=== PATIENT | male | born 1950 | race Caucasian/White ===

== ENCOUNTER → 2016-09-08 | Outpatient (CLI) | payer BC ==
[~2016-09-08] MED LIST: ASCO500T16 PO; ASPCH81X PO; B-CO-25 PO; COEN100C11 PO; CYAN100028 PO; FLUC200T4 PO; GABA-113 PO; HYDROCORTISONE PO; KRIL1000 PO; LYSI500T34 PO; MAGN1CAP2 PO; MELA1TAB3 PO; MULT-188 PO; NUTR30CA PO; PRAS1CAP2 PO; SELENIUM PO; VALA1TAB31 PO; VITAMIN D3 PO; ZINC PO; [UNRECOGNIZED DRUG - CODE] PO; [UNRECOGNIZED DRUG - CODE] PO; [UNRECOGNIZED DRUG - OTHER] PO; [UNRECOGNIZED DRUG - OTHER] PO; [UNRECOGNIZED DRUG - OTHER] PO
[2016-09-08 10:38] LABS: CHOLESTEROL/HDL RATIO 4.3; FERRITIN 47.6 ng/ml (8.0-388.0)
--- NOTE | 2016-09-09 14:12 | CODING QUERY NO DIAGNOSIS ---
TREATMENT RENDERED WITHOUT A DIAGNOSIS 52 To promote full compliance with coding requirements relating to patient care, physician participation is requested in all cases of medical records coder uncertainty. Please assist us with providing a diagnosis/symptom for the test(s) below: A diagnosis/symptom was not documented on your Order. A valid diagnosis/symptom is required to bill all insurances. Please remember that we are unable to code a diagnosis of rule out, probable, possible, questionable, or suspected. DOS 09/08/16 Tests that require a diagnosis: * ACTH DIAGNOSIS: * C-REACT PROT DIAGNOSIS: * DHEA SULFATE DIAGNOSIS: * FOLIC ACID DIAGNOSIS: * MAGNESIUM DIAGNOSIS: * VITAMIN B12 DIAGNOSIS: * T3 FREE DIAGNOSIS: * VITAMIN D, 25-HYDROXY DIAGNOSIS: *LIPID PROFILE FASTING DIAGNOSIS: *FERRITIN DIAGNOSIS: Provider Signature: Date: Thank you Carmela [facility] Information Management Once completed, please kindly fax back to [phone] For questions please call [phone]
[2016-09-13 14:14] LABS: C-REACTIVE PROT HIGHSEN 1.2 MG/L; PREGNENELONE **TC 31493X 25 ng/dL; T3 REVERSE **TC 90963 7 ng/dL (8-25); TESTOSTERONE,TOTAL 546 ng/dL (250-1100)
--- NOTE | 2016-10-18 09:26 | CODING QUERY MEDICAL NECESSITY ---
SUPPORTING DIAGNOSIS NEEDED A supporting diagnosis is required for the test/procedure performed on this patient in order for us to be reimbursed by the patient's insurance. Please provide a supporting diagnosis for the following test/procedure listed below next to the test name along with your signature. *If there is no additional diagnosis for this patient that would support the following test/procedure please document that below next to the test/procedure. Test(s)/Procedure(s) that require a supporting diagnosis: * VITAMIN D 25-HYDROXY DIAGNOSIS: * VITAMIN B-12 LEVEL DIAGNOSIS: * C-REACTIVE PROTEIN DIAGNOSIS; * DOS: 09/08/16 Provider Signature: Date: Thank you Juliana Rodriguez Health Information Management Once completed, please kindly fax back to [phone] For questions please call [phone]
== END | disposition home or self-care (01) ==
LOC: C.LAB 08:38
DX: E10.9 Type 1 diabetes mellitus without complications (principal); E24.3 Ectopic ACTH syndrome; R79.82 Elevated C-reactive protein (CRP); E27.9 Disorder of adrenal gland, unspecified; D52.9 Folate deficiency anemia, unspecified; E87.4 Mixed disorder of acid-base balance; D64.9 Anemia, unspecified; E03.9 Hypothyroidism, unspecified; E55.9 Vitamin D deficiency, unspecified; M79.7 Fibromyalgia; E78.5 Hyperlipidemia, unspecified

== ENCOUNTER → 2016-11-29 | Day surgery (SDC) | payer BC ==
[2016-11-12 13:52] VITALS: Ht 188 cm; Wt 90.5 kg
[~2016-11-29] VITALS: Ht 188 cm; Wt 90.5 kg
[~2016-11-29] MED LIST changes: +500ML BSS 0.3ML EPI 1:1000PF IRRIG ONE; +ACETAMINOPHEN 325 MG TAB ONE; +ACETAMINOPHEN 325 MG TAB PO PRN; +AMVISC PLUS 0.8ML SYRINGE INT OCU ONE; +ATROPINE SULFATE 0.1 MG/ML 5ML SYR IV PRN; +BRIMONIDINE TART 0.2% OP SOLN PER DROP CHARGE ONE; +BSS FLUSH ONE; +ENDOCOAT 0.85ML SYRINGE INT OCU ONE; +EpHEDrine SULFATE INJ 50 MG/ML AMP IV PRN; +EpINEphrine INJ 1MG/ML AMP 1 MG/ML AMP ONE; +FENTANYL CITRATE INJ 50 MCG/1 ML 2 ML VIAL IV PRN; -GABA-113 PO; +LACTATED RINGER'S 1000ML 500 ML IV SCH; +LIDOCAINE 4% OP SOLN DROP CHARGE ONE; +LIDOCAINE 4% OP SOLN DROP CHARGE OPL SCH; +LIDOCAINE HCL 1% MPF 2 ML VIAL ONE; +MIDAZOLAM HCL 1 MG/ML 2ML VIAL ONE; +MOXIFLOXACIN OPH SOLN PER DROP CHARGE ONE; +ONDANSETRON INJ 2 MG/ML 2 ML VIAL IV PRN; +POVIDONE-IODINE OP SOLN 30 ML BTL ONE; +PROPARACAINE 0.5% OP SOLN PER DROP CHARGE OPL SCH; +TOBRAMYCIN/DEXAMETHASONE OPH OINT PER APPLN CHARGE ONE
--- NOTE | 2016-11-29 09:05 | History & Physical Bridge - SC ---
H&P Re-Evaluation Bridge Note: I have examined the patient, reviewed the History & Physical and in the interval since the performance of the History & Physical I have noted the following changes of clinical significance: No changes noted
[2016-11-29] MEDS: PHENYLEPHRINE HCL 2.5% OP SOLN PER DROP CHARGE OPL SCH ×2 (09:08→09:13)
[2016-11-29] MEDS: TROPICAMIDE 1% OP SOLN PER DROP CHARGE OPL SCH ×2 (09:09→09:14)
[2016-11-29] MEDS: CYCLOPENTOLATE HCL 1% OP SOLN PER DROP CHARGE OPL SCH ×2 (09:10→09:15)
[2016-11-29] MEDS: KETOROLAC 0.5% OP SOLN PER DROP CHARGE OPL SCH ×2 (09:11→09:16)
[2016-11-29] MEDS: MOXIFLOXACIN OPH SOLN PER DROP CHARGE OPL SCH ×2 (09:12→09:22)
[2016-11-29 10:22] VITALS: TEMP 36.4
--- NOTE | 2016-11-29 10:22 | Discharge Instructions-SurgCtr ---
Discharge Instructions Date of Service Nov 29, 2016. Visit Reason for Visit: Cataract Left Eye Discharge Discharge Diagnosis / Problem: cataract left eye Discharge Goals Goal(s): Improve function Activity Recommendations Activity Limitations: per Instructions/Follow-up section Lifting Limitations: no more than 5 pounds Anesthesia . Post Anesthesia Instructions: If you have had General Anesthesia or IV Sedation: * Do not drive today. * Resume driving when surgeon permits. * Do not make important decisions or sign legal documents today. * Call surgeon for: 1. Temperature elevations greater than 101 degrees F. 2. Uncontrollable pain. 3. Excessive bleeding. 4. Persistent nausea and vomiting. 5. Medication intolerance (nausea, vomiting or rash). * For nausea and vomiting use only clear liquids such as: tea, soda, bouillon until nausea subsides, then gradually increase diet as tolerated. * If you have any concerns or questions, call your surgeon's office. If physician is unavailable and it is an emergency, call 911 or go to the nearest emergency room. . Instructions / Follow-Up Instructions / Follow-Up ACTIVITY RECOMMENDATIONS: * Light activities * You may walk outside, read, watch television. * Mild irritation and blurred vision are common for the first few days, redness around the white part of the eye is common. MEDICATIONS: Resume previous medications unless instructed otherwise by your surgeon. Eye drops (today and tomorrow): Cipro - one drop in operative eye every 2 hours while awake Prednisolone 1% - one drop in operative eye every 2 hours while awake Ilevro - one drop operative eye 1 times daily SPECIAL CARE INSTRUCTIONS: * If any problems or concerns, please call Dr. Reyes's office at . * Keep plastic shield taped over eye to sleep at night. * Keep plastic shield taped over eye except to administer eye drops. * Keep plastic shield on until office visit the following day. FOLLOW UP VISIT: Follow-up with Dr. Reyes in the [place] office as scheduled. If not already scheduled, please call the office at . Diet Recommendations Home Diet: resume previous diet Procedures Procedures Performed: Left Cataract Phacoemulsification With Intraocular Lens Implant Pending Studies Studies pending at discharge: no Medical Emergencies . Who to Call and When: Medical Emergencies: If at any time you feel your situation is an emergency, please call 911 immediately. . Non-Emergent Contact Non-Emergency issues call your: [facility] . . "Provider Documentation" section prepared by Reggie Reyes. .
--- NOTE | 2016-11-29 10:22 | [facility] Post Operative Brief Note ---
Immediate Operative Summary Operative Date Nov 29, 2016. Pre-Operative Diagnosis Cataract Left Eye Post-Operative Diagnosis Same Procedure(s) Performed Left Cataract Phacoemulsification With Intraocular Lens Implant Surgeon Dr. Reyes Correctional Supervisor Surgeon(s) None Estimated Blood Loss 0 Findings cataract left eye Specimens None Complication(s) None Disposition Recovery Room / PACU
--- NOTE | 2016-11-29 10:30 | OPERATIVE REPORT ---
DATE OF OPERATION: 11/29/2016 PREOPERATIVE DIAGNOSIS: Cataract, left eye. POSTOPERATIVE DIAGNOSIS: Cataract, left eye. PROCEDURE: Phacoemulsification cataract extraction with intraocular lens placement, left eye. SURGEON: Dr. Reyes. COMPLICATIONS: None. ESTIMATED BLOOD LOSS: None. ANESTHESIA: Topical with sedation. OPERATION AND FINDINGS: After informed consent was obtained in the holding area the patient was wheeled back to the Operating Room where cardiac monitoring leads and oxygen by nasal cannula was administered by Anesthesia. Gentle IV sedation was given, and the patient's left eye was prepped and draped in usual sterile fashion. A wire lid speculum was placed into the left eye and the operating microscope was swung into position. Using 0.12 forceps and a Supersharp blade a paracentesis port was made 3 o'clock hours away from the 3 o'clock position of patient's left eye. 1% non-preserved Lidocaine was then injected into the anterior chamber for anesthesia. A 2.2 mm keratotome blade was then used to make a shelved clear corneal incision at the 3 o'clock position of his left eye. Amvisc was injected into the anterior chamber and a cystotome and Utrata forceps were used to perform a curvilinear capsulorrhexis. BSS on a hydrodissection cannula was used to hydrodissect the lens nucleus away from the capsular bag. The phacoemulsification handpiece was then used in a stop and chop fashion to remove the lens nucleus. The irrigation and aspiration handpiece was then used to remove the residual cortical material. Amvisc was injected into the capsular bag and anterior chamber and a Bausch \T\ Lomb MX60, 21.0 Diopter intraocular lens was injected into the capsular bag. Irrigation and aspiration handpiece was used to remove the residual viscoelastic material. The wounds were hydrated and noted to be watertight. The wire lid speculum was removed from the eye. Vigamox, Brimonidine, and TobraDex ointment were placed on the eye and it was shielded. It should be noted that EndoCoat was used during the case to protect the cornea endothelium. DISPOSITION: The patient tolerated the procedure well and was wheeled to the post anesthesia care unit in stable condition. I attest to the content of the Intraoperative Record and any orders documented therein. Any exceptions are noted below. I attest to the content of the Intraoperative Record and any orders documented therein. Any exceptio ns are noted below.
--- NOTE | 2016-11-29 10:31 | Anesthesia Progress Nt - [facility] ---
Anesthesia Post Op Note Date & Time Nov 29, 2016 at 10:30 Vital Signs Pain Intensity: 0 Vital Signs Past 12 Hours Date Time Temp Pulse Resp B/P Pulse Ox O2 Delivery O2 Flow Rate FiO2 11/29/16 09:04 36.8 66 16 132/88 95 Room Air Notes Mental Status: alert / awake / arousable, participated in evaluation Pt Amnestic to Procedure: Yes Nausea / Vomiting: adequately controlled Pain: adequately controlled Airway Patency, RR, SpO2: stable & adequate BP & HR: stable & adequate Hydration State: stable & adequate Anesthetic Complications: no major complications apparent
[2016-11-29 10:45] VITALS: BP 131/85; PULSE 56; O2SAT 96
== END | disposition home or self-care (01) ==
LOC: X.SURG 08:53
PROVIDERS: ATTEND Ophthalmology
DX: H26.9 Unspecified cataract (principal); J45.909 Unspecified asthma, uncomplicated; Z98.41 Cataract extraction status, right eye; Z86.711 Personal history of pulmonary embolism; G47.33 Obstructive sleep apnea (adult) (pediatric); Z98.890 Other specified postprocedural states; Z68.26 Body mass index [BMI] 26.0-26.9, adult

== ENCOUNTER → 2016-12-27 | Outpatient (CLI) | payer BC ==
[~2016-12-27] MED LIST changes: -500ML BSS 0.3ML EPI 1:1000PF IRRIG ONE; -ACETAMINOPHEN 325 MG TAB ONE; -ACETAMINOPHEN 325 MG TAB PO PRN; -AMVISC PLUS 0.8ML SYRINGE INT OCU ONE; -ATROPINE SULFATE 0.1 MG/ML 5ML SYR IV PRN; -BRIMONIDINE TART 0.2% OP SOLN PER DROP CHARGE ONE; -BSS FLUSH ONE; -ENDOCOAT 0.85ML SYRINGE INT OCU ONE; -EpHEDrine SULFATE INJ 50 MG/ML AMP IV PRN; -EpINEphrine INJ 1MG/ML AMP 1 MG/ML AMP ONE; -FENTANYL CITRATE INJ 50 MCG/1 ML 2 ML VIAL IV PRN; -LACTATED RINGER'S 1000ML 500 ML IV SCH; -LIDOCAINE 4% OP SOLN DROP CHARGE ONE; -LIDOCAINE 4% OP SOLN DROP CHARGE OPL SCH; -LIDOCAINE HCL 1% MPF 2 ML VIAL ONE; -MIDAZOLAM HCL 1 MG/ML 2ML VIAL ONE; -MOXIFLOXACIN OPH SOLN PER DROP CHARGE ONE; -ONDANSETRON INJ 2 MG/ML 2 ML VIAL IV PRN; -POVIDONE-IODINE OP SOLN 30 ML BTL ONE; -PROPARACAINE 0.5% OP SOLN PER DROP CHARGE OPL SCH; -TOBRAMYCIN/DEXAMETHASONE OPH OINT PER APPLN CHARGE ONE
[2016-12-27 14:58] LABS: BASO % 0.5 %; BASO ABS # 0.03 K/uL (0-0.2); COMPLETE YES; HEMATOCRIT 46.5 % (42-52); IG% 0.5 %; LYMPH % 31.6 %; LYMPH ABS # 1.74 K/uL (1.2-3.4); MEAN CELL VOLUME 94.5 fL (80-100); MEAN CORPUSCULAR HEMOGLOBIN 32.3 pg (25-34); MEAN CORPUSCULAR HGB CONC 34.2 g/dl (32-36); MEAN PLATELET VOLUME 9.7 fL (7.4-10.4); MONO % 11.6 %; NEUT % 53.8 %; PLATELET COUNT 239 K/uL (130-400); RED BLOOD COUNT 4.92 M/uL (4.7-6.1)
--- NOTE | 2016-12-31 11:02 | CODING QUERY MEDICAL NECESSITY ---
SUPPORTING DIAGNOSIS NEEDED Dr. Chaparro, A supporting diagnosis is required for the test/procedure performed on this patient in order for us to be reimbursed by the patient's insurance. Please provide a supporting diagnosis for the following test/procedure listed below next to the test name along with your signature. *If there is no additional diagnosis for this patient that would support the following test/procedure please document that below next to the test/procedure. Test(s)/Procedure(s) that require a supporting diagnosis: * ([id number]) VITAMIN D ASSAY DIAGNOSIS: * ([id number]) VITAMIN D, 1, 25-DIHYDROXY DIAGNOSIS: *([id number]) C-REACTIVE PROTEIN DIAGNOSIS: DATE OF SERVICE: 12/27/16 Provider Signature: Date: Thank you Ramsey [facility] Health Information Management Once completed, please kindly fax back to [phone] For questions please call [phone]
[2017-01-03 02:19] LABS: C-REACTIVE PROT HIGHSEN 1.6 MG/L; CANDIDA AB IgA 1.6; CANDIDA AB IgG 1.2; CANDIDA AB IgM 0.3; INSULIN LIKE GROWTH FACTOR-I 296 ng/mL (41-279); PREGNENELONE **TC 31493X 11 ng/dL (22-237); T3 REVERSE **TC 90963 9 ng/dL (8-25); TESTOSTERONE,TOTAL 686 ng/dL (250-1100)
== END | disposition home or self-care (01) ==
LOC: C.LAB 14:11
DX: E27.49 Other adrenocortical insufficiency (principal); R53.82 Chronic fatigue, unspecified; D83.9 Common variable immunodeficiency, unspecified; E07.89 Other specified disorders of thyroid; E29.1 Testicular hypofunction; G47.00 Insomnia, unspecified; B97.89 Other viral agents as the cause of diseases classified elsewhere

== ENCOUNTER → 2017-01-13 | Day surgery (SDC) | payer BC ==
[2017-01-05 15:24] VITALS: Ht 188 cm; Wt 90.5 kg
[~2017-01-13] VITALS: Ht 188 cm; Wt 90.5 kg
[~2017-01-13] MED LIST changes: +IOPAMIDOL INJ 61% 15 ML VIAL ONE; +LIDOCAINE HCL 1% MPF 5 ML VIAL ONE; +SODIUM CHLORIDE 0.9% INJ 10 ML VIAL ONE
--- NOTE | 2017-01-13 14:44 | Discharge Instructions ---
Discharge Instructions Date of Service Jan 13, 2017. Visit Reason for Visit: Lumbar Radiculopathy Discharge Discharge Diagnosis / Problem: left leg pain Discharge Goals Goal(s): Decrease discomfort, Improve function Activity Recommendations Activity Limitations: resume your previous activity Anesthesia . Post Anesthesia Instructions: If you have had General Anesthesia or IV Sedation: * Do not drive today. * Resume driving when surgeon permits. * Do not make important decisions or sign legal documents today. * Call surgeon for: 1. Temperature elevations greater than 101 degrees F. 2. Uncontrollable pain. 3. Excessive bleeding. 4. Persistent nausea and vomiting. 5. Medication intolerance (nausea, vomiting or rash). * For nausea and vomiting use only clear liquids such as: tea, soda, bouillon until nausea subsides, then gradually increase diet as tolerated. * If you have any concerns or questions, call your surgeon's office. If physician is unavailable and it is an emergency, call 911 or go to the nearest emergency room. . Diet Recommendations Recommended Home Diet: resume previous diet Procedures Procedures Performed: Caudal Epidural Steroid Injection Pending Studies Studies pending at discharge: no Medical Emergencies . Who to Call and When: Medical Emergencies: If at any time you feel your situation is an emergency, please call 911 immediately. . Non-Emergent Contact Non-Emergency issues call your: Specialist . . "Provider Documentation" section prepared by Leonel Williamson. .
[2017-01-13 14:52] VITALS: BP 125/73; PULSE 74; TEMP 36.7; O2SAT 95
--- NOTE | 2017-01-13 15:07 | OPERATIVE REPORT ---
DATE OF OPERATION: 01/13/2017 PREOPERATIVE DIAGNOSIS: History of a herniated lumbar disk, L5-S1 with a left lower extremity radiculopathy. POSTOPERATIVE DIAGNOSIS: Same. PROCEDURE: Caudal epidural steroid injection under fluoroscopic guidance. INDICATIONS: The patient is a 66-year-old white male with a 10+ year history of chronic low back pain. He has had 2 epidural injections in the distant past, which had provided him with good relief for a number of years; however, the pain has been returning and is problematic to him. He describes a classic S1 dermatomal distribution pain down the left leg. He presents today for an epidural injection. He will be given a caudal approach as he had taken an aspirin this morning. PHYSICAL EXAMINATION: GENERAL: Pleasant male seated comfortably. MUSCULOSKELETAL: Lumbar paraspinal muscles were palpated and noted be nontender. He has normal lower extremity strength. SENSATION: Decreased sensation in the left lower extremity L5 dermatomal distribution. CONSENT: Verbal and written consent was obtained from the patient. Risks and benefits were reviewed. Risks include, but are not limited to epidural abscess, epidural hematoma, allergic reaction, and dural puncture. The patient wishes to proceed. DESCRIPTION OF PROCEDURE: The patient was taken back to the special procedures room of the [facility], where he was maintained in a prone position. Backside was cleansed with Betadine x3 and a dry sterile dressing was applied. Fluoroscope was used to identify the sacral hiatus and overlying skin was anesthetized at the sacral hiatus with 4 mL of lidocaine 1% with a 25-gauge 1-1/2 inch needle. A 25-gauge 3-1/2 inch spinal needle was then directed through the sacral hiatus down into the canal under lateral fluoroscopic guidance. He then underwent injection after negative aspiration of 40 mg of Depo-Medrol and 4 mL of preservative free sodium chloride. Injection was well tolerated. DISPOSITION: 1. The patient was taken out into the discharge recovery area, where he will be discharged home once discharge criteria have been met. 2. Follow up in the [facility] office in 2-4 weeks. I attest to the content of the Intraoperative Record and any orders documented therein. Any exception s are noted below.
== END | disposition home or self-care (01) ==
LOC: X.SURG 13:26
PROVIDERS: ATTEND Physical Medicine & Rehabilitation
DX: M51.17 Intervertebral disc disorders with radiculopathy, lumbosacral region (principal)

== ENCOUNTER → 2017-05-17 | Outpatient (CLI) | payer BC ==
[~2017-05-17] MED LIST changes: -IOPAMIDOL INJ 61% 15 ML VIAL ONE; -LIDOCAINE HCL 1% MPF 5 ML VIAL ONE; -SODIUM CHLORIDE 0.9% INJ 10 ML VIAL ONE
== END | disposition home or self-care (01) ==
LOC: C.LAB 13:47
DX: E27.49 Other adrenocortical insufficiency (principal); E23.0 Hypopituitarism; E03.9 Hypothyroidism, unspecified; R53.82 Chronic fatigue, unspecified; D84.9 Immunodeficiency, unspecified; G47.20 Circadian rhythm sleep disorder, unspecified type; D83.9 Common variable immunodeficiency, unspecified; A69.20 Lyme disease, unspecified; B97.89 Other viral agents as the cause of diseases classified elsewhere

== ENCOUNTER → 2017-05-26 | Day surgery (SDC) | payer BC ==
[2017-05-06 14:14] VITALS: Ht 188 cm; Wt 90.5 kg
[~2017-05-26] VITALS: Ht 188 cm; Wt 90.5 kg
[~2017-05-26] MED LIST changes: +IOPAMIDOL INJ 61% 15 ML VIAL ONE; +LIDOCAINE HCL 1% MPF 5 ML VIAL ONE; +SODIUM CHLORIDE 0.9% INJ 10 ML VIAL ONE
[2017-05-26 14:04] VITALS: TEMP 37.1
--- NOTE | 2017-05-26 14:04 | Discharge Instructions ---
Discharge Instructions Date of Service May 26, 2017. Visit Reason for Visit: Lumbar Radiculopathy Discharge Discharge Diagnosis / Problem: leg pain Discharge Goals Goal(s): Decrease discomfort, Improve function Medications Stopped Medications Name(s): ASA, ADVIL LAST DOSE 1 WEEK AGO Activity Recommendations Activity Limitations: resume your previous activity Anesthesia . Post Anesthesia Instructions: If you have had General Anesthesia or IV Sedation: * Do not drive today. * Resume driving when surgeon permits. * Do not make important decisions or sign legal documents today. * Call surgeon for: 1. Temperature elevations greater than 101 degrees F. 2. Uncontrollable pain. 3. Excessive bleeding. 4. Persistent nausea and vomiting. 5. Medication intolerance (nausea, vomiting or rash). * For nausea and vomiting use only clear liquids such as: tea, soda, bouillon until nausea subsides, then gradually increase diet as tolerated. * If you have any concerns or questions, call your surgeon's office. If physician is unavailable and it is an emergency, call 911 or go to the nearest emergency room. . Diet Recommendations Recommended Home Diet: resume previous diet Procedures Procedures Performed: LUMBAR EPIDURAL STEROID INJECTION Pending Studies Studies pending at discharge: no Medical Emergencies . Who to Call and When: Medical Emergencies: If at any time you feel your situation is an emergency, please call 911 immediately. . Non-Emergent Contact Non-Emergency issues call your: Specialist . . "Provider Documentation" section prepared by Leonel Williamson. .
[2017-05-26 14:12] VITALS: BP 135/78; PULSE 58; O2SAT 96
--- NOTE | 2017-05-26 14:23 | OPERATIVE REPORT ---
DATE OF OPERATION: 05/26/2017 PREOPERATIVE DIAGNOSIS: L5-S1 disc herniation with bilateral lower extremity radiculopathy. POSTOPERATIVE DIAGNOSIS: Same. PROCEDURE: Right paramedian L5-S1 intralaminar epidural steroid injection under fluoroscopic guidance. SURGEON: Dr. Leonel Williamson. INDICATIONS: The patient is a 66-year-old white male who has received epidural injections with good relief of radicular pain. When he was he was evaluated in early May, his pain was predominantly down the left leg. More recently he is reporting it is bothering him down both legs and a little bit more intense now in the right leg. It is following the classic S1 dermatomal distribution with pain into the hamstring area bilaterally. PHYSICAL EXAMINATION: Pleasant male seated comfortably in no apparent distress. He has normal lower extremity strength. Positive seated straight leg raise of his right lower extremity, slight decreased L5 dermatomal sensation on the left side. No focal weakness. CONSENT: Verbal and written consent was obtained from the patient. Risks and benefits were reviewed. Risks include but are not limited to epidural abscess, epidural hematoma, allergic reaction, dural puncture. The patient wishes to proceed. PROCEDURE: The patient was taken back to the special procedures room of the [facility] where he was maintained in a prone position. Backside was cleansed with Betadine x3 and a dry sterile dressing was applied. Fluoroscope was used to identify the L5-S1 intralaminar space. Overlying skin on the right side was anesthetized with 4 mL of lidocaine 1% with a 25 gauge 1.5-inch needle. A 22-gauge 3.5 inch spinal needle was then directed under fluoroscopic guidance into the epidural space and advanced under lateral fluoroscopic guidance to a depth of 6.5 cm where there was a loss of resistance. Isovue-300 contrast 1 mL was injected in which demonstrated epidural uptake pattern. He then underwent injection after negative aspiration of 40 mg of Depo-Medrol and 4 mL of preservative free sodium chloride. Injection was well tolerated. DISPOSITION: 1. The patient is taken out into the discharge recovery area where he will be discharged home once discharge criteria have been met. 2. Follow up in the [facility] office in 2-4 weeks. I attest to the content of the Intraoperative Record and any orders documented therein. Any exception s are noted below.
== END | disposition home or self-care (01) ==
LOC: X.SURG 12:55
PROVIDERS: ATTEND Physical Medicine & Rehabilitation
DX: M51.17 Intervertebral disc disorders with radiculopathy, lumbosacral region (principal); Z98.41 Cataract extraction status, right eye; Z98.42 Cataract extraction status, left eye; Z98.818 Other dental procedure status; Z90.89 Acquired absence of other organs; E03.9 Hypothyroidism, unspecified; Z84.1 Family history of disorders of kidney and ureter; Z82.49 Family history of ischemic heart disease and other diseases of the circulatory system; Z79.899 Other long term (current) drug therapy

== ENCOUNTER → 2017-10-31 | Outpatient (CLI) | payer BC ==
[~2017-10-31] MED LIST changes: -IOPAMIDOL INJ 61% 15 ML VIAL ONE; -LIDOCAINE HCL 1% MPF 5 ML VIAL ONE; -SODIUM CHLORIDE 0.9% INJ 10 ML VIAL ONE
[2017-10-31 13:02] LABS: BASO % 0.6 %; BASO ABS # 0.03 K/uL (0-0.2); HEMATOCRIT 45.5 % (42-52); HEMOGLOBIN 15.5 g/dL (14.0-18.0); IG# 0.01 K/uL (0.00-0.02); LYMPH % 33.4 %; LYMPH ABS # 1.71 K/uL (1.2-3.4); MEAN CORPUSCULAR HEMOGLOBIN 32.7 pg (25-34); MEAN CORPUSCULAR HGB CONC 34.1 g/dl (32-36); MEAN PLATELET VOLUME 9.4 fL (7.4-10.4); MONO % 10.2 %; MONO ABS # 0.52 K/uL (0.11-0.59); NEUT % 53.6 %; NEUT ABS # 2.75 K/uL (1.4-6.5); PLATELET COUNT 349 K/uL (130-400); RED CELL DISTRIBUTION WIDTH CV 13.8 % (11.5-14.5); RED CELL DISTRIBUTION WIDTH SD 48.8 fL (36.4-46.3); WHITE BLOOD COUNT 5.12 K/uL (4.8-10.8)
[2017-10-31 13:32] LABS: ALBUMIN 3.6 gm/dl (3.4-5.0); TOTAL PROTEIN 7.5 gm/dl (6.4-8.2)
[2017-10-31 13:47] LABS: T3 FREE 3.12 pg/ml (2.30-4.20)
[2017-10-31 14:21] LABS: LUTEINIZING HORMONE 2.77 IU/L
[2017-11-04 14:21] LABS: EBV EARLY ANTIGEN AB >150.00 U/ML; TESTOSTERONE,TOTAL 552 ng/dL (250-1100)
--- NOTE | 2017-11-11 07:52 | CODING QUERY MEDICAL NECESSITY ---
CQSUPPORTING DIAGNOSIS NEEDED A supporting diagnosis is required for the test/procedure performed on this patient in order for us to be reimbursed by the patient's insurance. Please provide a supporting diagnosis for the following test/procedure listed below next to the test name along with your signature. *If there is no additional diagnosis for this patient that would support the following test/procedure please document that below next to the test/procedure. Test(s)/Procedure(s) that require a supporting diagnosis: DOS 10/31/17 C-REACTIVE PROTEIN HIGH SENSITIVITY TESTING Provider Signature: Date: Thank you Suad Lainez Health Information Management Once completed, please kindly fax back to [phone] For questions please call [phone]
== END | disposition home or self-care (01) ==
LOC: C.LAB 11:50
DX: E23.0 Hypopituitarism (principal); E06.3 Autoimmune thyroiditis; R53.82 Chronic fatigue, unspecified; E07.89 Other specified disorders of thyroid; B97.89 Other viral agents as the cause of diseases classified elsewhere; D51.9 Vitamin B12 deficiency anemia, unspecified; E55.9 Vitamin D deficiency, unspecified; R41.89 Other symptoms and signs involving cognitive functions and awareness; B27.90 Infectious mononucleosis, unspecified without complication; D83.9 Common variable immunodeficiency, unspecified; E29.1 Testicular hypofunction; E53.8 Deficiency of other specified B group vitamins

== ENCOUNTER 2022-06-29 08:19 | Observation (INO) ==
--- NOTE | 2022-05-31 16:15 | PAT Medication Instructions ---
Medication Instructions Date of Service May 31, 2022 Home Medications Triiodothryonine 37.5 mcg PO QAM cholecalciferol (vitamin D3) 125 mcg (5,000 unit) tablet (Vitamin D3) 10,000 unit PO QAM coenzyme Q10 10 mg capsule (Co Q-10) 10 mg PO QAM cyanocobalamin (vitamin B-12) 1,000 mcg tablet (Vitamin B-12) 1,000 mcg PO QAM hydrocortisone 5 mg tablet 5 mg PO QAM PRN STRESS krill 1,000 mg-omega-3 170 mg-dha 50 mg-epa 80 [id number] capsule (krill oil) 1 cap PO QAM magnesium oxide 800 mg PO QAM valacyclovir 500 mg tablet (Valtrex) 1,000 mg PO BID Nt Factor Energy 1 tab PO QAM fluconazole 200 mg tablet 200 mg PO UD melatonin 1 mg tablet 1 mg PO HS PRN Sleep Airborne (ascorbic acid) 1 ea PO QAM vitamin K2 100 mcg capsule 100 mcg PO QAM Continue as directed fluconazole 200 mg tablet 200 mg PO UD STOP taking 2 weeks before surgery (or as soon as possible if surgery is within 2 weeks) coenzyme Q10 10 mg capsule (Co Q-10) 10 mg PO QAM krill 1,000 mg-omega-3 170 mg-dha 50 mg-epa 80 [id number]-wlhmw capsule (krill oil) 1 cap PO QAM Nt Factor Energy 1 tab PO QAM Airborne (ascorbic acid) 1 ea PO QAM vitamin K2 100 mcg capsule 100 mcg PO QAM DO NOT take the morning of surgery cholecalciferol (vitamin D3) 125 mcg (5,000 unit) tablet (Vitamin D3) 10,000 unit PO QAM cyanocobalamin (vitamin B-12) 1,000 mcg tablet (Vitamin B-12) 1,000 mcg PO QAM magnesium oxide 800 mg PO QAM Take morning of surgery With a small sip of water, OTHERWISE NOTHING TO EAT OR DRINK AFTER MIDNIGHT: hydrocortisone 5 mg tablet 5 mg PO QAM PRN STRESS (if needed) valacyclovir 500 mg tablet (Valtrex) 1,000 mg PO BID Take evening before surgery valacyclovir 500 mg tablet (Valtrex) 1,000 mg PO BID melatonin 1 mg tablet 1 mg PO HS PRN Sleep (if needed) Other Notes If you have any questions please call us at [phone] or [phone] or [phone] or [phone]
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
[~2022-06-29 08:19] MED LIST changes: +ACETAMINOPHEN 500 MG TAB PO SCH; -ASCO500T16 PO; -ASPCH81X PO; -B-CO-25 PO; -COEN100C11 PO; -CYAN100028 PO; +FAMOTIDINE 20 MG TAB PO SCH; -FLUC200T4 PO; +GABAPENTIN 300 MG CAP PO SCH; -HYDROCORTISONE PO; -KRIL1000 PO; +LR 500ML BOLUS, THEN 15ML/HR IV SCH; +LR 60ML/HR IV SCH; -LYSI500T34 PO; -MAGN1CAP2 PO; -MELA1TAB3 PO; +MEPIVACAINE HCL 1.5% 30 ML VIAL ONE; -MULT-188 PO; -NUTR30CA PO; +ORTHO JOINT MIX INFIL SCH; -PRAS1CAP2 PO; -SELENIUM PO; +TRANEXAMIC ACID 1,000 MG **IV Intra-op IV SCH; +TRANEXAMIC ACID 1,000 MG **IV Pre-op IV SCH; -VALA1TAB31 PO; -VITAMIN D3 PO; -ZINC PO; -[UNRECOGNIZED DRUG - CODE] PO; -[UNRECOGNIZED DRUG - CODE] PO; -[UNRECOGNIZED DRUG - OTHER] PO; -[UNRECOGNIZED DRUG - OTHER] PO; -[UNRECOGNIZED DRUG - OTHER] PO; +ceFAZolin 2000MG 2,000 MG/15 ML SYR IV SCH; +dexAMETHasone 4 MG TAB PO SCH
[2022-06-29] MEDS ORDERED: fentaNYL citrate 100 MCG/2 ML VIAL IV PRN ×2 (08:27→11:01)
[2022-06-29] MEDS ORDERED: PHENYLEPHRINE 100MCG/ML 5ML SYR IV PRN ×2 (08:27→11:01)
[2022-06-29] MEDS ORDERED: MEPERIDINE HCL 25 MG/ML CARP/VIAL IV PRN ×2 (08:27→11:01)
[2022-06-29] MEDS ORDERED: HYDROmorphone INJ 1 MG/ML SYRINGE IV PRN ×2 (08:27→11:01)
[2022-06-29] MEDS ORDERED: ONDANSETRON INJ 2 MG/ML 2 ML VIAL IV PRN ×3 (08:27→14:07)
[2022-06-29] MEDS ORDERED: LABETALOL HCL IV 5 MG/ML 20ML IV PRN ×2 (08:27→11:01)
[2022-06-29] MEDS ORDERED: ATROPINE SULFATE 0.1 MG/ML 10ML SYR IV PRN ×2 (08:27→11:01)
[2022-06-29] MEDS ORDERED: ePHEDrine sulfate 50 MG/ML AMP IV PRN ×2 (08:27→11:01)
--- NOTE | 2022-06-29 08:49 | History & Physical Bridge Note ---
Date of Service June 29, 2022 History & Physical Bridge Note I have examined the patient, reviewed the History & Physical and in the interval since the performance of the History & Physical I have noted the following changes of clinical significance: no changes noted
[2022-06-29] MEDS ORDERED: ONDANSETRON INJ 2 MG/ML 2 ML VIAL ONE (10:31)
[2022-06-29] MEDS ORDERED: PROPOFOL IV EMULSION 10 MG/ML 20 ML VIAL IV ONE (10:31)
[2022-06-29] MEDS ORDERED: DEXAMETHASONE SOD INJ 4 MG/ML VIAL ONE (10:31)
[2022-06-29] MEDS ORDERED: MIDAZOLAM HCL 1 MG/ML 2ML VIAL ONE (10:32)
[2022-06-29] MEDS ORDERED: fentaNYL citrate 100 MCG/2 ML VIAL ONE (10:32)
[2022-06-29] MEDS ORDERED: ORTHO JOINT ANESTHETIC ONE (11:03)
[2022-06-29] MEDS ORDERED: BUPIVACAINE 0.5 % 5 MG/1 ML PF 10ML VIAL ONE (11:12)
--- NOTE | 2022-06-29 12:47 | Operative Report ---
PG Post Operative Report Pre & Post Diagnosis Operation Date: 06/29/22 10:40 Pre-Op Diagnosis: Degenertative Joint Disease Right Hip Post-Op Diagnosis: Degenertative Joint Disease Right Hip I identified the patient and participated in the time-out.: Yes Procedure Operation Date: 06/29/22 10:40 Actual Procedures p Right Total Hip Arthroplasty Anterior(Right) - Dashawn Powell DO Surgeon Dashawn Powell DO Balance Engineer Dashawn Singh PA-C Estimated Blood Loss 200 Findings Consistent with Post-Op Diagnosis Specimens Right femoral head Description of Procedure Implants used I used a Zimmer[employer]omet total hip arthroplasty system with a size 6 high offset Avenir Complete stem, a 58 mm G7 cup with a 25mm screw, an E1 polyethylene liner, a 40 mm ceramic head with a +10.5 neck. Sebas arrived at the hospital for the above procedure. He was seen in the preoperative holding area and the operative extremity was identified and signed. He was given a spinal anesthetic, a preoperative antibiotic, and TXA. He was then taken back to the operating room and laid on the table in the supine position. He was given basic sedation. The operative leg was secured to a Puristst leg positioner. The hip was then prepped and draped in sterile fashion. A timeout was done and the patient and the operative extremity was properly identified. An anterior approach was used. Dissection was taken down through the fascia and the tensor muscle belly was retracted laterally and the rectus was retracted medially. The circumflex vessels were identified and ligated. The capsule was then incised and tagged for later repair. The femoral neck was then cut and the femoral head was removed. The acetabulum was exposed. Time was spent doing a complete circumferential labral release. Sequential reaming of the acetabulum up to a size 57 reamer was done. Final reamings were done under fluoroscopy to ensure appropriate version. A Biomet 58 mm G7 cup was then impacted into place. A single 25 mm screw was placed. The E1 polyethylene liner was then snapped into place. Surrounding soft tissues were then injected with 100 cc of an orthopedic pain control cocktail. The proximal femur was then exposed. Sequential broaching up to a size 6 broach was done. Off that broach a size 40 head with a +10.5 neck was trialed. The hip was reduced and fluoroscopic images showed anatomic alignment of the implants in acceptable length. The broach was removed. The final size 6 high offset Avenir Complete stem was then impacted into place. A ceramic 40 mm head with a +10.5 neck was then impacted onto the stem and the hip was reduced. Final fluoroscopic images showed anatomic alignment of the hip. The capsule was then closed with #1 Vicryl suture. A dilute betadyne lavage was then done for 3 minutes. The joint was then irrigated with normal saline solution. The fascia was closed with #1 PDS suture. Skin was closed with 2-0 Vicryl, abhijit, and a Silverlon dressing. He was then transferred to a hospital bed and taken to the post anesthesia care unit in stable condition. He tolerated the procedure well. Dashawn Singh PA-C, was present for the entire procedure. He was critical for patient positioning, prepping, draping, retraction exposure, wound closure and application of sterile dressing. I attest to the content of the Intraoperative Record and any orders documented therein. Any exceptions are noted below.
--- NOTE | 2022-06-29 13:38 | Anesthesiology Progress Note ---
Date of Service June 29, 2022 Anesthesia Post Procedure Vital Signs Vital Signs: Temp Pulse Resp BP Pulse Ox O2 Del Method O2 Flow Rate 06/29/22 13:35 71 16 118/64 97 Room Air 06/29/22 13:25 66 15 127/68 94 Room Air 06/29/22 13:15 72 16 128/67 97 Oxymask 06/29/22 13:09 36.7 C 76 17 126/67 92 Oxymask 06/29/22 08:49 36.7 C 62 20 144/80 H 95 Room Air Pain Intensity Right Hip: Pain Intensity: 1 Transfer of Care Handoff Completed per policy Notes Mental Status: alert / awake / arousable Patient Amnestic to Procedure: Yes Nausea / Vomiting: adequately controlled Pain: adequately controlled Airway Patency, RR, SpO2: stable & adequate BP & HR: stable & adequate Hydration State: stable & adequate Neuraxial Anesthesia: was administered and sensory block is resolving Anesthetic Complications: no major complications apparent and Pt Satisfied with anesthetic care
--- NOTE | 2022-06-29 13:46 | Fluoroscopy Report ---
FL hip RT 1V CLINICAL HISTORY: RT ANTERIOR TECHNIQUE: 1 views were obtained with the C-arm in the OR with the above procedure. Total fluoroscopy time was 20 seconds. Comparison: Comparison is made to right hip radiograph 04/14/2022 FINDINGS/IMPRESSION: Intraoperative images were obtained of right hip arthroplasty. Please correlate with intraoperative fluoroscopy and operative report. ACT 112: Negative or not required by law. Electronically signed by: Rodolfo Badillo M.D. 06/29/2022 1:45 PM
--- NOTE | 2022-06-29 14:00 | XRay Report ---
XR hip 1V RT w pelvis CLINICAL HISTORY: Postoperative evaluation. COMPARISON: Right hip radiographs April 14, 2022. FINDINGS: Alignment of the total right hip arthroplasty is anatomic. There is no periprosthetic frac ture or unexpected radiopaque foreign body. There are skin abhijit. Postoperative findings within the lumbosacral spine are partially imaged. Pelvic calcifications favor phleboliths. There is left hip j oint space narrowing with osteophytosis, unchanged. IMPRESSION: Expected findings following total right hip arthroplasty. ACT 112: Negative or not required by law. Electronically signed by: Pepito Galarza M.D. 06/29/2022 1:58 PM
[2022-06-29] MEDS ORDERED: oxyCODONE HCL IR 5 MG TAB (IMMEDIATE RELEASE) PO PRN (14:07)
[2022-06-29] MEDS ORDERED: METOCLOPRAMIDE HCL INJ 5 MG/ML 2 ML VIAL IV PRN (14:07)
[2022-06-29] MEDS ORDERED: MAGNESIUM HYDROXIDE SUSP 30 ML UDC PO PRN (14:07)
[2022-06-29] MEDS ORDERED: bisacodyL 10 MG SUPP PR PRN (14:07)
[2022-06-29] MEDS ORDERED: HYDROCORTISONE 10 MG TAB PO PRN (14:07)
[2022-06-29] MEDS ORDERED: NALOXONE HCL 0.4 MG/1 ML VIAL/CARP IV PRN (14:07)
[2022-06-29] MEDS: SODIUM CHLORIDE 0.9% 1000ML 1,000 ML IV SCH ×2 (14:19→23:25)
[2022-06-29] MEDS: ACETAMINOPHEN 500 MG TAB PO SCH ×2 (14:21→21:07)
[2022-06-29] MEDS ORDERED: FLUCONAZOLE 100 MG TAB PO SCH (14:30)
[2022-06-29] MEDS: KETOROLAC TROMETHAMINE 15 MG/ML VIAL IV SCH ×2 (15:35→21:08)
[2022-06-29] MEDS ORDERED: SENNA 8.6 MG TAB PO SCH (21:00)
[2022-06-29] MEDS: ceFAZolin 2000MG 2,000 MG/15 ML SYR IV SCH (21:04)
[2022-06-29] MEDS: valACYclovir HCL 500 MG TABLET PO SCH (21:06)
[2022-06-29] MEDS: ASPIRIN 81 MG ECTAB PO SCH (21:11)
[2022-06-29] MEDS: DOCUSATE SODIUM 100 MG CAP PO SCH (21:11)
[2022-06-30] MEDS: ceFAZolin 2000MG 2,000 MG/15 ML SYR IV SCH (04:07)
[2022-06-30] MEDS: KETOROLAC TROMETHAMINE 15 MG/ML VIAL IV SCH ×3 (04:08→16:21)
--- NOTE | 2022-06-30 05:41 | Orthopedic Progress Note ---
Date of Service June 30, 2022 Assessment & Plan (1) Status post right hip replacement: Overall is doing very well. He is not having much pain in the right hip. He will be seen by physical therapy today for ambulation and range of motion exercises. He is on aspirin for DVT prophylaxis. He can be discharged home later today. He will follow-up with orthopedics in 2 weeks. Rainer Mullen was seen and examined at bedside this morning. Overall is doing very well. Is not having too much pain in the right hip. He has not been up yet with the nursing staff. He was able to get some sleep last night. He has no complaints.. Review of Systems All systems reviewed & are unremarkable except as noted in HPI & below. Physical Exam On physical examination of the right hip, the dressing has some drainage in the window but it is not leaking. He has active dorsiflexion plantarflexion of his right ankle. Sensation is intact throughout.. Results & Data Results & Data Laboratory Results . Diagnostic Findings Postoperative x-rays of the right hip show the prosthesis to be in good alignment without any evidence of fracture, desiccation, or loosening. PG Care Time/CCT Total # of Minutes Spent Total Time Spent with Patient: Total time spent is greater than 50% in coordination of care (as documented) at patient's floor/unit and/or counseling patient: Coding Level of Care Code 00605 Post Operative Follow-Up Diagnoses Status post right hip replacement Z96.641
--- NOTE | 2022-06-30 05:44 | Discharge Summary ---
Date of Service June 30, 2022 Admission HPI (Per Admitting) Sebas is a pleasant 71-year-old male who has been dealing with chronic increasing right hip and groin pain. He was having a lot of low back pain as well. He had a lower lumbar fusion. That took care of some of his low back pain, but he is left with residual hip and groin pain. He did have a single hip injection without much relief. X-rays have shown worsening osteoarthritis of his right hip. After failing extensive conservative treatment, he has elected proceed with a right anterior total hip arthroplasty. Admission Exam (Per Admitting) On physical examination of the right hip, he has decreased range of motion. He has pain with forced internal and external rotation. All of his pain is located in his groin.. Principal Diagnosis Same as "Discharge Diagnosis" noted below under Discharge Instructions. Discharge Exam On physical examination of the right hip, the dressing has some drainage in the window but it is not leaking. He has active dorsiflexion plantarflexion of his right ankle. Sensation is intact throughout.. Discharge Data Procedures Performed Operation Date: 06/29/22 10:40 Actual Procedures p Right Total Hip Arthroplasty Anterior(Right) - Dashawn Powell DO Ordered Studies 06/29/22 10:40 FL hip RT 1V Routine Hospital Course (1) Status post right hip replacement: On June 29, 2022 Sebas arrived at [facility] and underwent a right hip replacement without complication. He had a spinal anesthetic. Post operatively he was started on aspirin for DVT prophylaxis and transferred to the general orthopedic floors. His hospital course was uneventful. On postop day #1, his vital signs were stable and his pain was well controlled. He was able to participate well with physical therapy doing ambulation and range of motion exercises. He was then discharged home. He will follow-up with orthopedics in 2 weeks. PG Care Time/CCT Total # of Minutes Spent Total Time Spent with Patient: Total time spent is greater than 50% in coordination of care (as documented) at patient's floor/unit and/or counseling patient: Discharge Plan Discharge Items Patient Disposition: Home - Home Health Services Reason For Visit: DJD Right Hip Discharge Diagnosis: Right hip replacement Activity: Per Instructions section Non-emergency contact: Surgeon Call non-emergency contact if: your wound has increased redness and your wound has increased drainage Follow-up/Referrals: [facility] [Outside] (as per surgeon's office ) Leroy Beltran DO [Primary Care Provider] - Diet: Regular Addtl Attending Provider Instructions: Activity and Therapy Recommendations: * If you are using [facility] then therapy will be provided at your home until they feel you have accomplished all of your goals. * If you are using [facility] then Physical Therapy will be provided until they feel you are ready to start Outpatient Physical Therapy. * If you are not using home therapy then Outpatient Physical Therapy should start about 3-5 days from your day of surgery. Therapy will last about 6-10 weeks * You were shown a series of exercises in the hospital. Do these exercises three times each day including the exercises you were shown in physical therapy. * Get up and walk several times each day.~ For the first four weeks, try not to stand or walk for more than one hour at a time. If you do stand or walk for more than one hour, you will not hurt anything, but your leg will likely swell.~~ * As you feel comfortable, you may change from the walker or crutches to a cane and~then to independent walking. Medications: * Narcotic You will likely be sent home from the hospital with a prescription for the narcotic pain medication that worked best throughout your stay. * Aspirin Most patients will be required to take Aspirin 81mg twice a day for 6 weeks after surgery. This is obtained [id number] and a prescription is not necessary. * Other medications may be prescribed for specific circumstances. If you have any questions, please call the office at . * Resume previous home medications unless otherwise instructed TEDs/Elastic Stockings: The white elastic stockings help limit swelling and prevent blood clots from forming in your legs. The more you wear them, the more they work. Wear them for six weeks. Dressing Care: Leave the Silverlon dressing in place for 7 days. After 7 days you may remove the dressing. If the incision is not draining then you may leave the abhijit open to air. If there is a little bit of drainage or if the abhijit are getting stuck on your clothing then cover the incision with a dry dressing. The abhijit will be removed at your 2 week follow-up appointment. Showering: You may shower with the Silverlon dressing in place. Do not let the shower spray hit the dressing directly. Pat the Silverlon dressing dry. If the dressing becomes wet underneath, then simply remove the dressing. Keep the incision dry until you are 7 days out from the day of surgery. After 7 days you may remove the Silverlon dressing and shower with the abhijit exposed. Let soapy water run over the abhijit and pat them dry. Do not scrub or soak the incision. Things To Watch For: * Drainage from the incision site that occurs more than one week after your surgery. * Increased redness at the incision site. * Fever above 102 degrees Fahrenheit. * Unusual chest pain or shortness of breath. * Call [facility] at with any of the above problems Follow-Up Visit: Follow-up with Dr. Powell's PA (Dashawn Singh) 2-3 weeks after your day of surgery. He will remove your abhijit and answer any questions. If you have any additional questions or concerns, Dr Powell is usually in the office at the same time and will be available An appointment was probably scheduled when you signed-up for surgery in the office. If you have any questions call Office Instructions: More detailed instructions as well as Frequently Asked Questions were provided in a folder by our office when you signed-up for surgery. Please review these instructions when you get home. If you have any further questions or concerns, please feel free to call the office at [phone] Pending Studies at Discharge: No Stand-Alone Forms: [facility], Smoking Cessation Medications and DC Order Prescriptions: New oxycodone-acetaminophen 5-325 mg tablet 1 tab PO Q6H PRN (Reason: pain) Qty: 30 0RF Continued hydrocortisone 5 mg Tablet 5 mg PO QAM PRN (Reason: STRESS) coenzyme Q10 [Co Q-10] 10 mg Capsule 10 mg PO QAM cyanocobalamin (vitamin B-12) [Vitamin B-12] 1,000 mcg Tablet 1,000 mcg PO QAM valacyclovir [Valtrex] 500 mg Tablet 1,000 mg PO BID [id number]-hqi-sshgkjn-ast [krill oil] 1,024-929-65-80 mg Capsule 1 cap PO QAM magnesium oxide 400 mg magnesium Tablet 800 mg PO QAM Triiodothryonine 37.5 mcg tablet 37.5 mcg PO QAM cholecalciferol (vitamin D3) [Vitamin D3] 5,000 unit Tablet 10,000 unit PO QAM fluconazole 200 mg Tablet 200 mg PO UD Rx Instructions: 3 TIMES PER WEEK Airborne (ascorbic acid) 1,000-350 mg Powder Effervescent In Packet 1 ea PO QAM vitamin K2 100 mcg Capsule 100 mcg PO QAM melatonin 1 mg Tablet 1 mg PO HS PRN (Reason: Sleep) Nt Factor Energy 1 tab PO QAM aspirin 81 mg Tablet,Delayed Release (Dr/Ec) 81 mg PO BID 42 Days Qty: 0 0RF Discharge Orders: Discharge Order (Routine); Ordered 06/30/22 Ordered By: Dashawn Powell Admission Data Admit Date/Time: 06/29/22 13:14 Attending Provider: Dashawn Powell Admit Provider: Dashawn Powell Primary Care Provider: Leroy Beltran
[2022-06-30] MEDS: ACETAMINOPHEN 500 MG TAB PO SCH ×2 (05:54→16:20)
[2022-06-30] MEDS: ASPIRIN 81 MG ECTAB PO SCH (07:16)
[2022-06-30] MEDS: DOCUSATE SODIUM 100 MG CAP PO SCH (07:16)
[2022-06-30] MEDS: valACYclovir HCL 500 MG TABLET PO SCH (07:18)
[2022-06-30] MEDS ORDERED: MULTIVITAMIN TAB PO SCH (09:00)
[2022-06-30] MEDS ORDERED: LIOTHYRONINE SODIUM 25 MCG TAB PO SCH (09:00)
[2022-06-30] MEDS ORDERED: NON-FORMULARY MEDICATION (Vitamin K2 100 mcg Capsule) PO SCH (09:00)
== END 2022-06-30 16:21 | disposition home health service (06) ==
LOC: ASU 08:19 → 3E 08:19

== ENCOUNTER 2024-06-15 06:50 | Observation (INO) ==
--- NOTE | 2024-05-15 12:06 | PAT Medication Instructions ---
Medication Instructions Date of Service May 15, 2024 Home Medications cholecalciferol (vitamin D3) 125 mcg (5,000 unit) tablet (Vitamin D3) 10,000 unit PO QAM coenzyme Q10 10 mg capsule (Co Q-10) 10 mg PO QAM cyanocobalamin (vitamin B-12) 1,000 mcg tablet (Vitamin B-12) 1,000 mcg PO QAM krill 1,000 mg-omega-3 170 mg-dha 50 mg-epa 80 ht-tzkgyo-onesj capsule (krill oil) 1 cap PO QAM magnesium oxide 800 mg PO QAM valacyclovir 500 mg tablet (Valtrex) 1,000 mg PO BID PRN FLARE/OUTBREAK Nt Factor Energy 1 tab PO QAM melatonin 1 mg tablet 1 - 3 mg PO HS PRN Sleep mhv-aaa-npankocq acid 1,000 mg-herbal 350 mg oral efferves powder pack (Airborne (ascorbic acid)) 1 ea PO QAM vitamin K2 100 mcg capsule 100 mcg PO QAM Test 5%/Progest 0.5% Gel 2 pump topical HS multivitamin 1 tab PO QAM evolocumab 140 mg/mL subcutaneous pen injector (Repatha SureClick) 140 mg subcut DIRECTED finasteride 5 mg tablet 5 mg PO DIRECTED losartan 25 mg tablet 25 mg PO QAM MEDICATION INSTRUCTIONS: Continue as directed valacyclovir 500 mg tablet (Valtrex) 1,000 mg PO BID PRN FLARE/OUTBREAK STOP taking 2 weeks before surgery Nt Factor Energy 1 tab PO QAM coenzyme Q10 10 mg capsule (Co Q-10) 10 mg PO QAM krill 1,000 mg-omega-3 170 mg-dha 50 mg-epa 80 yj-jeyazf-rexgt capsule (krill oil) 1 cap PO QAM DO NOT take the morning of surgery losartan 25 mg tablet 25 mg PO QAM multivitamin 1 tab PO QAM magnesium oxide 800 mg PO QAM cyanocobalamin (vitamin B-12) 1,000 mcg tablet (Vitamin B-12) 1,000 mcg PO QAM cholecalciferol (vitamin D3) 125 mcg (5,000 unit) tablet (Vitamin D3) 10,000 unit PO QAM aht-nhn-rzofcepo acid 1,000 mg-herbal 350 mg oral efferves powder pack (Airborne (ascorbic acid)) 1 ea PO QAM vitamin K2 100 mcg capsule 100 mcg PO QAM Take morning of surgery With a small sip of water, OTHERWISE NOTHING TO EAT OR DRINK AFTER MIDNIGHT: finasteride 5 mg tablet 5 mg PO DIRECTED Take evening before surgery Test 5%/Progest 0.5% Gel 2 pump topical HS (do not apply after bathing prior to surgery) melatonin 1 mg tablet 1 - 3 mg PO HS PRN Sleep Other Notes CHECK WITH PRESCRIBER FOR INSTRUCTIONS: evolocumab 140 mg/mL subcutaneous pen injector (Neftaly Hernandez) 140 mg subcut DIRECTED If you have any questions please call us at [phone] or [phone] or [phone] or [phone]
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
[~2024-06-15 06:50] MED LIST changes: -ACETAMINOPHEN 500 MG TAB PO SCH; +BUPIVACAINE 0.5 % 5 MG/1 ML PF 10ML VIAL ONE; -FAMOTIDINE 20 MG TAB PO SCH; -GABAPENTIN 300 MG CAP PO SCH; -LR 500ML BOLUS, THEN 15ML/HR IV SCH; -LR 60ML/HR IV SCH; -MEPIVACAINE HCL 1.5% 30 ML VIAL ONE; -ORTHO JOINT MIX INFIL SCH; -TRANEXAMIC ACID 1,000 MG **IV Intra-op IV SCH; -TRANEXAMIC ACID 1,000 MG **IV Pre-op IV SCH; -ceFAZolin 2000MG 2,000 MG/15 ML SYR IV SCH; -dexAMETHasone 4 MG TAB PO SCH
[2024-06-15] MEDS: ACETAMINOPHEN 500 MG TAB PO SCH ×2 (07:24→14:13)
[2024-06-15] MEDS: LR 15ML/HR IV SCH (07:24)
[2024-06-15] MEDS: dexAMETHasone**PF** 10 MG/ML VIAL IV SCH (07:25)
[2024-06-15] MEDS: FAMOTIDINE 20 MG TAB PO SCH (07:25)
[2024-06-15] MEDS: LR 60ML/HR IV SCH (07:26)
[2024-06-15] MEDS: GABAPENTIN 300 MG CAP PO SCH (07:45)
[2024-06-15] MEDS ORDERED: fentaNYL citrate PF 100 MCG/2 ML VIAL ONE (07:58)
[2024-06-15] MEDS ORDERED: MIDAZOLAM HCL 1 MG/ML 2ML VIAL ONE (07:58)
--- NOTE | 2024-06-15 08:03 | History & Physical Bridge Note ---
Date of Service June 15, 2024 History & Physical Bridge Note I have examined the patient, reviewed the History & Physical and in the interval since the performance of the History & Physical I have noted the following changes of clinical significance: no changes noted
[2024-06-15] MEDS: TRANEXAMIC ACID 1,000 MG **IV Pre-op IV SCH (08:40)
[2024-06-15] MEDS: ceFAZolin 2000MG 2,000 MG/15 ML SYR IV SCH ×2 (08:53→17:23)
[2024-06-15] MEDS ORDERED: ROCURONIUM BROMIDE 10 MG/ML 5 ML VIAL IV ONE (09:25)
[2024-06-15] MEDS ORDERED: PROPOFOL IV EMULSION 10 MG/ML 20 ML VIAL IV ONE (09:25)
[2024-06-15] MEDS ORDERED: LIDOCAINE 2% 2 ML VIAL/AMP(20MG/ML) INFIL ONE (09:25)
[2024-06-15] MEDS ORDERED: ONDANSETRON INJ 2 MG/ML 2 ML VIAL ONE (09:25)
[2024-06-15] MEDS ORDERED: ePHEDrine sulfate 50 MG/ML AMP ONE (09:25)
[2024-06-15] MEDS ORDERED: PHENYLEPHRINE HCL 10 MG/ML VIAL ONE (09:25)
[2024-06-15] MEDS: ORTHO JOINT ANESTHETIC ONE (09:46)
[2024-06-15] MEDS: ROPIV 0.5% 246mg, Ketorolac 30mg, EPINEPHrine 0.5mg in NSS INFIL SCH (09:46)
--- OUTSIDE RECORDS SUMMARY | 2024-06-15 09:49 | External Medical Summary | Summary of Care ---
Author Name Unknown Organization [facility] Address [address] [place] [address] Phone [phone] Care Team Providers Care Manager Gas Name Role Phone Leroy Beltran DO Primary Care Provider Reason for Visit * Reason Onset Date Comments Advice 05/29/2024 Encounter Details Date Type Department Care Team (Late st Contact Info) Description 05/29/2024 Telephone Family Practice [facility] [address] [facility] [address] Leroy Beltran DO [address] [place] [address] Advice Allergies Active Allergy Reactions Criticality Noted Date Comments Atorvastatin Muscle pain 02/11/2020 Rosuvastatin 10/20/2021 Brain fog Gabapentin 01/20/2022 Levofloxacin Muscle pain,Other (P lease comment) 11/11/2023 Headache and insomnia Prednisone Tachycardia 02/18/2018 palpitations documented as of this encounter (statuses as of 06/13/2024) Medications Medication Sig Dispensed Refills Start Date End Date Status MULTIVITAMINS PO TABS 1 tab daily Active [id number] INE SODIUM POWD 20mcg daily Active PROBIOTIC COMPLEX ACIDOPHILUS PO CAPS (P-8) one pill each day Active CYANOCOBALAMIN (VITAMIN B-12) 100 MCG Tablet Take 1 Tablet by mouth in the morning. Active Airborne Oral Lozenge Take 2 Tabs by mouth daily. Active Magnesium 400 MG Oral Capsule Take 3 Capsules by mouth in the morning. Active Vitamin D3 125 MCG (5000 UT) Oral Capsule Take 1 Capsule by mouth in the morning. Active Co-Enzyme Q-10 100 MG Oral Capsule Take 500 mg by mouth daily. Active Krill Oil 500 MG Oral Capsule Take 1 Capsule by mouth in the morning. Active Hydrocortisone 5 MG Oral Tablet Take by mouth daily . Active Vitamin K2 100 MCG Oral Capsule Take by mouth daily. With MK7 Active Melatonin 1 MG Oral Tablet Take 1 Tablet by mouth as needed. 2 Active Rogaine Extra Strength for Men 5 % External Solution (Minoxidil) Apply topically to affected area once. Apply to scalp Active Riboflavin 100 MG Oral Capsule Take 1 Capsule by mouth in the morning. Active valACYclovir HCl 1 GM Oral Tablet (Valtrex)Indicat ions:Cold sore 1 tab as needed for cold sore 90 Tablet 3 4 Active Losartan Potassium 25 MG Oral Tablet (Cozaar)Indicati ons:HTN, goal below 130/80 Take 1 Tablet by mouth in the morning. 90 Tablet 3 4 Active Finasteride 5 MG Oral Tablet (Proscar) Take 1 Tablet by mouth in the morning. 1/4 tab daily. 4 Active Testosterone Propionate 2 % Transdermal OintmentIndicati ons:Hypotestoste ronism Place 3 g topically on the skin every 3 days. Testosterone 5%/Progest 0.5% gel. Compound formulation. 60 g 4 Active Repatha SureClick 140 MG/ML Subcutaneous Solution Auto-injector (evolocumab)Cheri cations:Dyslipid emia, goal LDL below 70 Inject 140 mg (1 pen) under the skin every 14 days. Remove from refrigerator 30 minutes prior to injection. 6 mL 3 4 Active Amoxicillin 500 MG Oral Tablet Take 1 Tablet by mouth. 4 06/08/20 24 Discontinued Pantoprazole Sodium 20 MG Oral Tablet Delayed Release (Protonix) Take 1 Tablet by mouth in the morning. 28 Tablet 4 06/08/20 24 Discontinued(Med ication List Clean Up) documented as of this encounter (statuses as of 06/13/2024) Active Problems Problem Noted Date Diagnosed Date Pneumonia of both lower lobes due to infectious organism 01/17/2024 Lung nodules 01/17/2024 Brain fog 01/17/2024 Acute non intractable tension-type headache 01/06 Immunodeficiency, common variable 01/17/2024 Prolapsed internal hemorrhoids, grade 3 11/24/19 24 Prediabetes 11/14/2023 Overview: Per Prediabetes protocol Vascular dementia without behavioral disturbance 07/08/2022 ASCVD (arteriosclerotic cardiovascular disease) 02/26/2022 Lumbar degenerative disc disease 02/26/2022 Primary osteoarthritis of right hip 02/26/2022 Moderate episode of recurrent major depressive d isorder 01/05/2022 Thyroid nodule 04/01/2021 Coronary artery calcification of [place] artery 0 04/01/2021 Chest wall pain, chronic 02/26/2021 Statin intolerance 02/11/2020 Fibromyalgia 01/31/2020 Hx of actinic keratosis 08/25/2016 Major depressive disorder 07/19/2013 Overview: ICD-10 update of inactive term Solitary kidney, congenital 05/02/2012 Overview: Has healthy Left kidney, Congenital absence of right kidney. Adjustment disorder with depressed mood 01/15/20 10 Glucocorticoid deficiency 10/17/2009 Endocrine disorder 10/17/2009 Disease of pituitary gland 10/17/2009 Immunologic deficiency syndrome 10/17/2009 Transient insomnia 10/17/2009 Vitamin D deficiency 10/17/2009 DYSLIPIDEMIA, GOAL TO BE DETERMINED 07/17/2009 Overview: Per Lipid Taxonomy. Displacement of lumbar inter vertebral disc without myelopathy 10/28/2006 Fatigue 12/24/2005 Sleep apnea 04/22/2004 Pectus excavatum 12/30/2003 DDD (degenerative disc disease), cervical 2002 Esophageal reflux 02/09/2002 documented as of this encounter (statuses as of 06/13/2024) Resolved Problems Problem Noted Date Diagnosed Date Resolved Date Prediabetes 02/15/2022 05/20/2022 Overview: Per Prediabetes protocol Prediabetes 09/21/2021 01/21/2022 Overview: Per Prediabetes protocol Dyspnea 04/01/2021 06/30/2021 Atelectasis, bilateral 04/01/202101/18 Neuropathy 04/01/2021 06/30/2021 Chronic fatigue syndrome 10/17/2009 Other persistent mental diso rders due to conditions classified elsewhere 11/08/2008 06/30/20 21 Pulmonary embolus 11/22/2006 11/04/2016 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 ADVANCE DIRECTIVE INFORMATION 12/24/2005 06/11/2024 Overview: Pt advised to bring copy of living will. Other allergic rhinitis 09/30/200408/09 Overview: Resolved per Duplicate Protocol #2. ICD-10 update of inactive term Malaise and fatigue 09/09/2004 04/27/20 11 FAMILY HX-GI MALIGNANCY 04/10/200204/10 TOX DIF GOITER NO CRISIS 12/06/2000 Sprain of neck 12/06/2000 04/27/2011 NECK DISORDER-SYMPT NOS 05/21/199804/10 Back disorder 05/07/2008 Headache 06/30/2021 Overview: ICD-10 update of inactive term Other allergic rhinitis 12/2008 Overview: ICD-10 update of inactive term documented as of this encounter (statuses as of 06/13/2024) Immunizations Name Administration Dates Next Due COVID-19 mRNA, LNP-s, No Pre serve, 2-Dose Series (Moderna) 10/07/2020,09/02/2020 COVID-19 mRNA, LNP-s, PF, 18 + or 6-11Yrs (Moderna) 03/25/2021 COVID-19, mRNA, LNP-s, PF, B ooster, 100mcg/0.5mg (Moderna) 03/08/2021 Covid-19, Mrna, Lnp-s, Pf, B ivalent, 50 Mcg, IM, 12 yrs and above (Moderna) 04/23/2022 Diptheria/Tetanus (Adult) 05/20/1995 HEP A - Hepatitis A (Adult > 18 yrs) 07/22/2010, 11/08/2008 Hepatitis B, 20+ yrs 12/12/2008,11/08/2008 Pneumococcal Conjugate Vacc, 13 Valent (Prevnar) 06/12/2018 Pneumococcal Polysaccharide PPV23 (Pneumovax) 01/31/2020 Seasonal Influenza Vac., MDV , IM, 0.5 mL (Fluzone) 04/28/2012,04/27/2011,07/22/2010,05/31,07/12/2006,06/10/2005,05/16/2003 ,06/21/2002 Seasonal Influenza Virus Vac cine, Unspecified Formulation 04/29/2021,04/30/2020,06/24/2015,04/28,04/27/2011,07/22/2010,05/31/2008 ,07/12/2006,06/10/2005,05/16/2003,06/08,05/21/1998 Seasonal Influenza, High Dos e, Trivalent, PF, IM (Fluzone HD) 05/14/2024 Seasonal Influenza, PF, 6 M & above, IM , (FluLaval or Fluzone) 04/30/2020 Seasonal Influenza, Quadriva lent Hd (Fluzone Hd) 05/11/2023,06/03/2022,04/29/2021 Seasonal Influenza, Quadriva lent, No Preserve, IM 06/24/2015 TD, Preservative Free 06/10/2005 TDAP (age 10 and older)(Boostrix) 12/25/2020 TDAP, Age 7 and older, IM (Adacel) 07/22/2010 Varicella Zoster Vaccine (Adult) 06/21/2013 Zoster Vaccine Recombinant (Shingrix) 01/28/2021 ,10/23/2020 documented as of this encounter Social History Tobacco Use Types Packs/Day Years Used Date Smoking Tobacco: Never Passive Smoke Exposure: Never Smokeless Tobacco: Never Comments:no passive smoke at home Alcohol Use Standard Drinks/Week Comments Yes 0 (1 standard drink = 0.6 oz pur e alcohol) rare PHQ-2 Answer Date Recorded PHQ Adult Total Score 0 06/08/2024 Hunger Vital Sign Answer Date Recorded Within the past 12 months, y ou worried that your food would run out before you got the money to buy more. Never true 01/18/20 24 Within the past 12 months, t he food you bought just didn't last and you didn't have money to get more. Never true 01/18/2024 Childcare Answer Date Recorded Do you feel overwhelmed with taking care of a child, family member or friend? No 01/18/2024 Does your family need help f inding childcare? (Household - for ages 0-17 years) Not on file 01/18/2024 Clothing Answer Date Recorded Have you been unable to get clothing when it was really needed? No 01/18/2024 Is your family able to get c lothes or diapers when needed? (Household - for ages 0-17 years) Not on file 01/18/2024 Personal Safety Answer Date Recorded Do you feel unsafe or have concerns for your saf ety? No 01/18/2024 Do you have concerns for you r family's safety? (Household - for ages 0-17 years) Not on file 01/18/2024 Utilities Answer Date Recorded Do you have trouble paying y our heating, water, or electric bill? No 01/18/2024 Is your family able to pay t he heat, water, or electric bill? (Household - for ages 0-17 years) Not on file 01/18/2024 Does your family have access to good internet? (Household - for ages 0-17 years) Not on file 01/18/2024 Employment Status Answer Date Recorded Are you unemployed or without regular income? No 01/18/2024 Does the household have a re gular source of income? (Household - for ages 0-17 years) Not on file 01/18/2024 Social Connections Answer Date Recorded How often do you feel lonely or isolated from th ose around you? Never 01/18/2024 Financial Resource Strain Answer Date R ecorded Do you have any trouble payi ng for your medications, or do you think you might in the future? No 01/18/2024 Does your family have troubl e paying for medicine? (Household - for ages 0-17 years) Not on file 01/18/2024 Transportation Needs Answer Date Record ed READ ONLY Do you have troubl e getting a ride to medical visits or work? Never True 01/18/2024 Does your family have a hard time getting a ride to doctors visits? (Household - for ages 0-17 years) Not on file 01/18/2024 Has lack of transportation k ept you from medical appointments, meetings, work, or from getting things needed for daily living? Check all that apply. (Adult - for ages 18 years and over) Not on file 01/18/2024 Do you (or your family) have trouble finding or paying for a ride (transportation)? (Household - for ages 0-17 years) Not on file 01/18/2024 Housing Stability Answer Date Recorded Do you currently live in a s helter or have no steady place to sleep at night? No 01/18/2024 READ ONLY Do you think you a re at risk of becoming homeless? No 01/18/2024 Does your family worry about paying for your home or becoming homeless? (Household - for ages 0-17 years) Not on file 0 01/18/2024 Are you homeless or worried that you might be in the future? (Adult - for ages 18 years and over) Not on file Are you (or your family) ena eless or worried that you might be in the future? (Household - for ages 0-17 years) Not on file Food Insecurity Answer Date Recorded Do you need food for this week? No 01/18/2024 Are you able to get enough f ood for your family? (Household - for ages 0-17 years) Not on file 01/18/2024 Does your family need food t his week? (Household - for ages 0-17 years) Not on file 01/18/2024 Do you always have enough fo od for your family? (Household - for ages 0-17 years) Not on file 01/18/2024 Sex and Gender Information Value Date Recorded Sex Assigned at Male 12/07/2021 10:36 AM EDT Gender Identity Male 12/07/2021 10:36 AM EDT Sexual Orientation Straight 12/07/2021 10 :36 AM EDT Job Start Date Occupation Industry Not on file Not on file Not on file documented as of this encounter Miscellaneous Notes * Telephone Encounter - Mariola Salter, MED ASSIST - 06/13/2024 3:57 PM EST He states that Dr. Beltran manages his hydrocortisone. He states that he only takes the hydrocortisone as needed when he is physically or mentally stressed. * Telephone Encounter - Estefania Dent MD - 06/11/2024 11:21 AM EST Please check with patient who is managing his endocrine disorder, per med list pt on 5 mg hydrocortisone which is not a dose that would be used for chronic adrenal insufficiency generally and I recommend to get advice from them reg medications for surgery. Routing to PCP for additional input. * Telephone Encounter - Carol Mathew LPN - 06/11/2024 9:49 AM EST [facility] is calling. States that the adrenal insufficiency was not addressed on the pre op form and would like to know is there is is pre operative recommendations for this? Please advise. * Telephone Encounter - Anette Alcantar OSA - 05/29/2024 2:16 PM EDT Spoke w/ pt the only thing that was avail b4 the appt was Saturday 06/[address] pickering and patient did take that appointment to go over labs * Telephone Encounter - Leroy Beltran DO - 05/29/2024 2:09 PM EDT Sounds like he should have a pre-op appointment to review the new labs they did doesn't it? * Telephone Encounter - Rachel Oconnell LPN - 05/29/2024 8:36 AM EDT Amanda [facility] calling. Pt is scheduled for total shoulder on 06/15. Pt had a preop eval with them, there were some concerns about tests. Lab test scan into chart 05/23. Please review and advise. She also has concerns about adrenal insufficiency and his PRN hydrocortisone, are there any recommendation for before and after surgery? Please advise. documented in this encounter Plan of Treatment Upcoming Encounters Date Type Department Care Team (Late st Contact Info) Description 07/09/2024 11:00 AM EST Imaging Radiology [facility] 1st Floor, [place] [address] [place] [id number] 07/09/2024 12:20 PM EST Office Visit Pulmonary Medicine, [facility] [address] [facility] [place] [address] Nima Wilder MD [address] [place] [address] 08/09/2024 3:00 PM EST Office Visit Cardiology, [facility] [address] [place] [address] Archie Vasquez PA-C [address] [place] [address] 11/13/2024 2:00 PM EDT Telemedicine Family Practice [facility] [address] [facility] [place] [address] Kely Le CRNP [address] [place] [id number] 04/05/2025 2:00 PM EDT Office Visit Neurology [facility] [address] [place] [address] Keny Taylor, DO [address] [facility] [place] [address] 04/10/2025 11:00 AM EDT Office Visit Dermatology [facility] [address] [place] [address] Marie Moctezuma PA-C [address] [facility] [place] [address] 05/16/2025 4:20 PM EDT Office Visit Family Practice [facility] [address] [place] [address] Leroy Beltran, DO [address] [facility] [place] [address] 06/10/2025 11:00 AM EST Nurse Only Ancillary [facility] [address] [facility] [place] [address] [facility], Nurse Annual Wellness [facility] [address] [facility] [place] [address] Scheduled Procedures Name Priority Associated Diagnoses Date/Ti me COLONOSCOPY FLEXIBLE PROXIMAL DIAGNOSTIC Recall History of colon polyps Health Maintenance Due Date Last Done Comments Cologuard 1997 Fecal Occult Blood Test 1997 Sigmoidoscopy 1997 Hepatitis B Vaccine (3 of 3 - 19+ 3-dose series) 05/10/2009 12/12/2008, 11/08/2008 COVID-19 Vaccine (2023- season) 2024 04/23/2022, 03/25/2021, 03/08/2021, Additional history exists HbA1c 04/12/2025 04/12/2024, 04/0 08/2023, 07/08/2022, Additional history exists Adult Wellness Visit 06/08/2025 06/08/2024, 06/06/2023, 06/04/2022 Depression Monitoring 06/08/2025 06/08/2024 Colonoscopy 05/26/2026 05/26/2023, 05/08, 09/22/2022, Additional history exists Colorectal Cancer Screening 05/26/2026 DTap/Tdap Vaccines (3 - Td or Tdap) 12/25/2030 12/25/2020, 07/22/2010, 06/10/2005, Additional history exists Pneumococcal Vaccine: 65+ Years Completed 01/31/2020, 06/12/2018 Zoster Vaccines Completed 01/28/2021, 10/06, 06/21/2013 Influenza Vaccine (FLU shot) Completed 02/2024, 05/11/2023, 06/03/2022, Additional history exists HPV (Gardasil) Vaccine Aged Out No lo nger eligible based on patient's age to complete this topic MENINGOCOCCAL (MENACTRA/MENVEO) Aged Out No longer eligible based on patient's age to complete this topic documented as of this encounter Medical Devices Implanted Type Area Hot Air Furnace Installer And Repairer Device Identifier Shelf Expiration Date Model / Serial / Lot Sureclip 16mm 235cm - [id number] Implanted:Qty: 1 on 09/22/2022 by Marco Carmona MD at ENDOSCOPY [facility] Colon MICRO TECH ENDOSCOPY 02/07/2024 [id number] / / Duraclip 16mm Xlg Repostn - [id number] Implanted:Qty: 1 on 05/26/2023 by Yvonne Castano DO at [facility]OSCOPY [facility] CONMED NAIF 09/23/2024 [id number] / / documented as of this encounter Advance Directives Documents on File Type Date Recorded Patient Openstack Developer Expl anation Advance Directives and Living Will 05/14/2019 ADVANCE DIRECTIVE DELMAR BANKS WILL Power of Corporate Financial Analyst 05/14/2019 POWER OF A TTORNEY * Full Code (Latest Code Status on File) Date Activated Date Inactivated Comments 12/06/2023 11:30 AM 12/06/2023 6:04 PM This order reflects the patients wishes and were consensually agreed upon. Question Answer Comments Discussion of Advance Directives occurred with: Patient * Full Code Date Activated Date Inactivated Comments 12/12/2020 9:21 AM 12/12/2020 3:53 PM This order ref lects the patients wishes and were consensually agreed upon. Care Teams Manager Gas Relationship Specialty Start Date End Date Leroy Beltarn DO [address] [place] [address] PCP - General Family Medicine 12/03/20 documented as of this encounter
--- OUTSIDE RECORDS SUMMARY | 2024-06-15 09:49 | External Medical Summary | Summary of Care ---
Author Name Unknown Organization [facility] Address [address] [place] [address] Phone [phone] Care Team Providers Care Plant Utility Person Name Role Phone Leroy Beltran DO Primary Care Provider Reason for Visit * Reason Onset Date Comments Pre-Op Testing 06/13/2024 Encounter Details Date Type Department Care Team (Late st Contact Info) Description 06/13/2024 Telephone Family Practice [facility] [address] [facility] [place] [address] Leroy Beltran DO [address] [facility] [place] [address] Pre-Op Testing Allergies Active Allergy Reactions Criticality Noted Date Comments Atorvastatin Muscle pain 02/11/2020 Rosuvastatin 10/20/2021 Brain fog Gabapentin 01/20/2022 Levofloxacin Muscle pain,Other (P lease comment) 11/11/2023 Headache and insomnia Prednisone Tachycardia 02/18/2018 palpitations documented as of this encounter (statuses as of 06/14/2024) Medications Medication Sig Dispensed Refills Start Date End Date Status MULTIVITAMINS PO TABS 1 tab daily Active [id number] SODIUM POWD 20mcg daily Active PROBIOTIC COMPLEX [...] Take 1 Tablet by mouth as needed. 05/28/2022 Active Rogaine Extra Strength for Men 5 % External Solution (Minoxidil) Apply topically to affected area once. Apply to scalp Active Riboflavin 100 MG Oral Capsule Take 1 Capsule by mouth in the morning. Active valACYclovir HCl 1 GM Oral Tablet (Valtrex)Indication s:Cold sore 1 tab as needed for cold sore 90 Tablet 3 09/06/2023 Active Losartan Potassium 25 MG Oral Tablet (Cozaar)Indications :HTN, goal below 130/80 Take 1 Tablet by mouth in the morning. 90 Tablet 3 12/26/2023 Active Finasteride 5 MG Oral Tablet (Proscar) Take 1 Tablet by mouth in the morning. 1/4 tab daily. 03/31/2024 Active Testosterone Propionate 2 % Transdermal OintmentIndications :Hypotestosteronism Place 3 g topically on the skin every 3 days. Testosterone 5%/Progest 0.5% gel. Compound formulation. 60 g 04/24/2024 Active Repatha SureClick 140 MG/ML Subcutaneous Solution Auto-injector (evolocumab)Indicat ions:Dyslipidemia, goal LDL below 70 Inject 140 mg (1 pen) under the skin every 14 days. Remove from refrigerator 30 minutes prior to injection. 6 mL 3 05/28/2024 Active Nystatin 917229 UNIT/GM External CreamIndications:Co ngenital pectus excavatum,Intertrig o Apply topically to affected area 2 times a day. For 2-4 wks 30 g 06/09/2024 Active Fluconazole 200 MG Oral Tablet (Diflucan)Indicatio ns:Casandra infection of genital region Take 1 Tablet by mouth in the morning for 14 days. 14 Tablet 06/12/2024 06/26/2024 Active documented as of this encounter (statuses as of 06/14/2024) Active Problems Problem Noted Date Diagnosed Date [...] Thyroid nodule 04/01/2021 Coronary artery calcification of [place] artery 0 04/01/2021 Chest wall pain, chronic [...] as of this encounter (statuses as of 06/14/2024) Resolved Problems Problem Noted Date Diagnosed Date Resolved Date Prediabetes 02/15/2022 05/20/2022 Overview: Per Prediabetes protocol Prediabetes 09/21/2021 01/21/2022 Overview: Per Prediabetes protocol Dyspnea 04/01/2021 06/30/2021 Atelectasis, bilateral 04/01/202101/18 Neuropathy 04/01/2021 06/30/2021 Chronic fatigue syndrome 10/17/2009 Other persistent mental diso rders due to conditions classified elsewhere 11/08/2008 06/30/20 21 Pulmonary embolus 11/22/2006 11/04/2016 [facility] current use of ant icoagulant therapy 11/22/2006 [...] as of this encounter (statuses as of 06/14/2024) Immunizations Name Administration Dates Next Due COVID-19 mRNA, LNP-s, No Pre serve, 2-Dose Series (Moderna) 10/07/2020,09/02/2020 COVID-19 mRNA, LNP-s, PF, 18 + or 6-11Yrs (Moderna) 03/25/2021 COVID-19, mRNA, LNP-s, PF, B ooster, 100mcg/0.5mg (Moderna) 03/08/2021 Covid-19, Mrna, Lnp-s, Pf, B ivalent, 50 Mcg, IM, 12 yrs and above (Moderna) 04/23/2022 HEP A - Hepatitis A (Adult > 18 yrs) 07/22/2010, 11/08/2008 Hepatitis B, 20+ yrs 12/12/2008,11/08/2008 Pneumococcal Conjugate Vacc, 13 Valent (Prevnar) 06/12/2018 Pneumococcal Polysaccharide PPV23 (Pneumovax) 01/31/2020 Seasonal Influenza Vac., MDV , IM, 0.5 mL (Fluzone) 04/28/2012,04/27/2011,07/22/2010,05/31,07/12/2006 Seasonal Influenza Virus Vac cine, Unspecified Formulation 04/29/2021,04/30/2020,06/24/2015,04/28,04/27/2011,07/22/2010,05/31/2008 ,07/12/2006,06/10/2005,05/16/2003,06/08 Seasonal Influenza, High Dos e, Trivalent, PF, IM (Fluzone HD) 05/14/2024 Seasonal Influenza, PF, 6 M & above, IM , (FluLaval or Fluzone) 04/30/2020 Seasonal Influenza, Quadriva lent Hd (Fluzone Hd) 05/11/2023,06/03/2022,04/29/2021 Seasonal Influenza, Quadriva lent, No Preserve, IM 06/24/2015 TDAP (age 10 and older)(Boostrix) 12/25/2020 TDAP, [...] encounter Miscellaneous Notes * Telephone Encounter - Martina Gramajo LPN - 06/14/2024 10:24 AM EST Spoke to Gena-- informed of message below. She states that pt reported to them he was only taking the hydrocortisone PRN not daily. * Telephone Encounter - Leroy Beltran DO - 06/14/2024 9:55 AM EST His adrenal insufficiency appears to be very mild - would not advise any specific therapy before/after his surgery - has he been taking it daily? * Telephone Encounter - Martina Gramajo LPN - 06/14/2024 8:52 AM EST "Patient is scheduled for a total shoulder on Friday 06/15 Patient had a pre-op eval.Some concerns about tests. Lab tests scanned into the chart on 05/23/24 Has some concerns about adrenal insufficiency and his PRN hydrocortisone. Are there any recommendations for him before and after surgery?" Please review message above about Pre tx with hydrocortisone due to adrenal insufficiency. Nurse will then call Gena BURTON back at [place] Pre anesthesia. * Telephone Encounter - Wendy Arteaga LPN - 06/14/2024 8:52 AM EST Gena calling from [facility] Pre-anesthesia Patient is scheduled for a total shoulder on Friday 06/15 Has some concerns about adrenal insufficiency and his PRN hydrocortisone. Are there any recommendations for him before and after surgery? Spoke with ISSAC Mack in room with a patient at this time, she will have PCP address and call Gena back with recommendations. Gena [phone] Gena stated that they do have access to [employer], if provider writes recommendation in this encounter she has access to be able to read. * Telephone Encounter - Perri Cruz LPN - 06/13/2024 1:25 PM EST Amanda calling from [place] anesthesia Patient is scheduled for a total shoulder on Friday 06/15 Patient had a pre-op eval.Some concerns about tests. Lab tests scanned into the chart on 05/23/24 Has some concerns about adrenal insufficiency and his PRN hydrocortisone. Are there any recommendations for him before and after surgery? documented in this encounter Plan of Treatment Upcoming Encounters Date Type Department Care Team (Late st Contact Info) Description 07/09/2024 11:00 AM EST Imaging Radiology [facility] 1st Floor, [place] [address] [place] [address] 07/09/2024 12:20 PM EST Office Visit Pulmonary Medicine, [facility] [address] [facility] [place] [address] Nima Wilder MD [address] [place] [address] 08/09/2024 3:00 PM EST Office Visit Cardiology, [facility] [address] [facility] [place] [address] Archie Vasquez PA-C [address] [place] [address] 11/13/2024 2:00 PM EDT Telemedicine Family Practice [facility] [address] [facility] [place] [address] Kely Le CRNP [address] [place] [address] 04/05/2025 2:00 PM EDT Office Visit Neurology [facility] [address] [place] [address] Keny Taylor, DO [address] [place] [address] 04/10/2025 11:00 AM EDT Office Visit Dermatology [facility] [address] [place] [address] Marie Moctezuma PA-C [address] [facility] [place] [address] 05/16/2025 4:20 PM EDT Office Visit [facility] [place] [address] Leroy Beltran, DO [address] [place] [address] 06/10/2025 11:00 AM EST Nurse Only Ancillary [facility] [address] [facility] [place] [address] [facility], Nurse Annual Wellness [facility] [address] [facility] [place] [address] Scheduled Procedures Name Priority Associated Diagnoses Date/Ti [...] this encounter Medical Devices Implanted Type Area Car Carder Device Identifier Shelf Expiration Date Model / Serial / Lot Sureclip 16mm 235cm - [id number] Implanted:Qty: 1 on 09/22/2022 by Marco Carmona MD at ENDOSCOPY [facility] Colon MICRO TECH ENDOSCOPY 02/07/2024 [id number] / / Duraclip 16mm Xlg Repostn - [id number] Implanted:Qty: 1 on 05/26/2023 by Yvonne Castano DO at ENDOSCOPY [facility] CONMED NAIF 09/23/2024 [id number] / / documented as of this encounter Advance Directives Documents on File Type Date Recorded Patient Radiology Tech Expl anation Advance Directives and Living Will 05/14/2019 ADVANCE DIRECTIVE DELMAR PETERSON Power of Baby Counselor 05/14/2019 POWER OF A TTORNEY * Full [...] and were consensually agreed upon. Care Teams Plant Utility Person Relationship Specialty Start Date End Date Leroy Beltran DO [address] [place] [address] PCP - General Family Medicine 12/03/20 documented as of this encounter
--- OUTSIDE RECORDS SUMMARY | 2024-06-15 09:49 | External Medical Summary | Summary of Care ---
Author Name Unknown Organization [facility] Address [address] [place] [address] Phone [phone] Care Team Providers Care Pressroom Worker Name Role Phone Leroy Beltran DO Primary Care Provider Reason for Visit * Reason Onset Date Comments Advice 05/29/2024 Encounter Details Date Type Department Care Team (Late st Contact Info) Description 05/29/2024 Telephone Family Practice [facility] [address] [place] [facility] [address] Leroy Beltran DO [address] [place] [address] Advice Allergies Active Allergy Reactions Criticality Noted Date Comments Atorvastatin Muscle pain 02/11/2020 Rosuvastatin 10/20/2021 Brain fog Gabapentin 01/20/2022 Levofloxacin Muscle pain,Other (P lease comment) 11/11/2023 Headache and insomnia Prednisone Tachycardia 02/18/2018 palpitations documented as of this encounter (statuses as of 06/14/2024) Medications Medication Sig Dispensed Refills Start Date End Date Status MULTIVITAMINS PO TABS 1 tab daily Active [id number] INE SODIUM POWD 20mcg daily Active PROBIOTIC [...] Thyroid nodule 04/01/2021 Coronary artery calcification of [place] artery 0 04/01/2021 Chest wall pain, chronic [...] 11/08/2008 06/30/20 21 Pulmonary embolus 11/22/2006 11/04/2016 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 States that the [...] - 05/29/2024 8:36 AM EDT Amanda from [place] Anesthesia dept calling. Pt is scheduled for [...] Description 07/09/2024 11:00 AM EST Imaging Radiology [facility] 1st Floor, [place] [address] [place] [address] 07/09/2024 12:20 PM EST Office Visit Pulmonary Medicine, [facility] 132 [facility] [place] [address] Nima Wilder MD [address] [place] [address] 08/09/2024 3:00 PM EST Office Visit Cardiology, [facility] [address] [place] [address] Archie Vasquez PA-C [address] [place] [address] 11/13/2024 2:00 PM EDT Telemedicine Family Practice [facility] [address] [facility] [place] [address] Kely Le CRNP [address] [place] [address] 04/05/2025 2:00 PM EDT Office Visit Neurology [facility] [address] [place] [address] Keny Taylor, DO [address] [place] [facility] [address] 04/10/2025 11:00 AM EDT Office Visit Dermatology [facility] [address] [place] [address] Marie Moctezuma PA-C [address] [facility] [place] [address] 05/16/2025 4:20 PM EDT Office Visit Family Practice [facility] [address] [place] [address] Leroy Beltran, DO [address] [facility] [place] [address] 06/10/2025 11:00 AM EST Nurse Only Ancillary [facility] [address] [facility] [place] [address] [facility], Nurse Annual Wellness [facility] [address] [facility] [place] [address] Scheduled Procedures Name Priority Associated Diagnoses Date/Ti [...] this encounter Medical Devices Implanted Type Area Accounting Associate Device Identifier Shelf Expiration Date Model / Serial / Lot Sureclip 16mm 235cm - [id number] Implanted:Qty: 1 on 09/22/2022 by Marco Carmona MD at ENDOSCOPY [facility] Colon MICRO TECH ENDOSCOPY 02/07/2024 [id number] / / Duraclip 16mm Xlg Repostn - [id number] Implanted:Qty: 1 on 05/26/2023 by Yvonne Castano DO at ENDOSCOPY [facility] CONMED NAIF 09/23/2024 [id number] / / documented as of this encounter Advance Directives Documents on File Type Date Recorded Patient Underwriting Analyst Expl anation Advance Directives and Living Will 05/14/2019 ADVANCE DIRECTIVE DELMAR BANKS WILL Power of Mathematics Professor 05/14/2019 POWER OF A TTORNEY * Full [...] and were consensually agreed upon. Care Teams Pressroom Worker Relationship Specialty Start Date End Date Leroy Beltran DO [address] [place] [address] PCP - General Family Medicine 12/03/20 documented as of this encounter
--- OUTSIDE RECORDS SUMMARY | 2024-06-15 09:49 | External Medical Summary | Summary of Care ---
Author Name Unknown Organization [facility] Address [address] [place] [address] Phone [phone] Care Team Providers Care Tier Lift Truck Operator Name Role Phone Leroy Beltran DO Primary Care Provider Reason for Visit * Reason Onset Date Comments Pre-Op Testing 06/13/2024 Encounter Details Date Type Department Care Team (Late st Contact Info) Description 06/13/2024 Telephone Family Practice [facility] [address] [facility] [place] [address] Leroy Beltran DO [address] [facility] [place] [address] Pre-Op Testing Allergies Active Allergy Reactions Criticality Noted Date Comments Atorvastatin Muscle pain 02/11/2020 Rosuvastatin 10/20/2021 Brain fog Gabapentin 01/20/2022 Levofloxacin Muscle pain,Other (P lease comment) 11/11/2023 Headache and insomnia Prednisone Tachycardia 02/18/2018 palpitations documented as of this encounter (statuses as of 06/14/2024) Medications Medication Sig Dispensed Refills Start Date End Date Status MULTIVITAMINS PO TABS 1 tab daily Active [id number] SODIUM POWD 20mcg daily Active PROBIOTIC COMPLEX [...] injection. 6 mL 3 05/28/2024 Active Nystatin 376023 UNIT/GM External CreamIndications:Co ngenital pectus excavatum,Intertrig o [...] Thyroid nodule 04/01/2021 Coronary artery calcification of [place] artery 0 04/01/2021 Chest wall pain, chronic [...] 11/08/2008 06/30/20 21 Pulmonary embolus 11/22/2006 11/04/2016 prison current use of ant icoagulant therapy 11/22/2006 [...] encounter Miscellaneous Notes * Telephone Encounter - Leroy Beltran DO - 06/14/2024 10:42 AM EST Yes- and his dx of adrenal insufficiency has been difficult for us to track down as I believe it was started/dx by a chronic lyme doctor that he was seeing in [place] area years ago. Would advise no dosing of the steroid for the week before and after surgery * Telephone Encounter - Martina Gramajo LPN [...] will then call Gena BURTON back at [place] Pre anesthesia. * Telephone Encounter - Wendy Arteaga LPN - 06/14/2024 8:52 AM EST Gena calling from [facility] Pre-anesthesia Patient is scheduled for a total shoulder on Friday 06/15 Has some concerns about adrenal insufficiency and his PRN hydrocortisone. Are there any recommendations for him before and after surgery? Spoke with ISSAC Mack in room with a patient at this time, she will have PCP address and call Gena back with recommendations. Gena [phone] Gena stated that they do have access to [employer], if provider writes recommendation in this encounter she has access to be able to read. * Telephone Encounter - Perri Cruz LPN - 06/13/2024 1:25 PM EST Amanda calling from [place] anesthesia Patient is scheduled for a total [...] Description 07/09/2024 11:00 AM EST Imaging Radiology [facility] [address] [facility] [place] [address] 07/09/2024 12:20 PM EST Office Visit Pulmonary Medicine, [facility] [address] [facility] [place] [address] Nima Wilder MD [address] [facility] [place] [address] 08/09/2024 3:00 PM EST Office Visit Cardiology, [facility] [place] [address] Archie Vasquez PA-C [address] [place], [place] [address] 11/13/2024 2:00 PM EDT Telemedicine [facility] [address] [facility] [place] [address] Kely Le CRNP [address] [facility] [place] [address] 04/05/2025 2:00 PM EDT Office Visit Neurology [facility] [address] [place] [address] Keny Taylor, DO [address] [facility], [place] [address] 04/10/2025 11:00 AM EDT Office Visit Dermatology [facility] [address] [place] [address] Marie Moctezuma PA-C [address] [facility] [place] [address] 05/16/2025 4:20 PM EDT Office Visit Family [facility] [address] [facility] [place] [address] Leroy Beltran, DO [address] [place] [address] 06/10/2025 11:00 AM EST Nurse Only Ancillary [facility] [address] [facility] [place] [address] D Ela Cruz, Nurse Annual Wellness [facility] [address] [facility] [place] [address] Scheduled Procedures Name Priority Associated Diagnoses Date/Ti me COLONOSCOPY FLEXIBLE PROXIMAL DIAGNOSTIC Recall History of colon polyps Health Maintenance Due Date Last Done Comments Cologuard 1997 Fecal Occult Blood Test 1997 Sigmoidoscopy 1997 Hepatitis B Vaccine (3 of 3 - 19+ 3-dose series) 05/10/2009 12/12/2008, 11/08/2008 COVID-19 Vaccine ( season) 2024 04/23/2022, 03/25/2021, 03/08/2021, Additional history [...] this encounter Medical Devices Implanted Type Area Woodworking Belt Sander Device Identifier Shelf Expiration Date Model / Serial / Lot Sureclip 16mm 235cm - [id number] Implanted:Qty: 1 on 09/22/2022 by Marco Carmona MD at ENDOSCOPY [facility] Colon MICRO TECH ENDOSCOPY 02/07/2024 [id number] / / Duraclip 16mm Xlg Repostn - [id number] Implanted:Qty: 1 on 05/26/2023 by Yvonne Castano DO at [facility] [employer] [facility] 09/23/2024 [id number] / / documented as of this encounter Advance Directives Documents on File Type Date Recorded Patient Food Checker Expl anation Advance Directives and Living Will 05/14/2019 ADVANCE DIRECTIVE LI VING WILL Power of Trauma Doctor 05/14/2019 POWER OF A TTORNEY * Full [...] and were consensually agreed upon. Care Teams Tier Lift Truck Operator Relationship Specialty Start Date End Date Leroy Beltran DO [address] [place] [address] PCP - General Family Medicine 12/03/20 documented as of this encounter
--- OUTSIDE RECORDS SUMMARY | 2024-06-15 09:50 | External Medical Summary | Summary of Care ---
Author Name Unknown Organization [facility] Address [address] [place] [address] Phone [phone] Care Team Providers Care [employer] Secretary Name Role Phone Leroy Beltran DO Primary Care Provider Reason for Visit * Reason Onset Date Comments Advice 05/29/2024 Encounter Details Date Type Department Care Team (Late st Contact Info) Description 05/29/2024 [facility]phone [facility] [address] [facility] [address] Leroy Beltran DO [address] [place] [address] Advice Allergies Active Allergy Reactions Criticality Noted Date Comments Atorvastatin Muscle pain 02/11/2020 Rosuvastatin 10/20/2021 Brain fog Gabapentin 01/20/2022 Levofloxacin Muscle pain,Other (P lease comment) 11/11/2023 Headache and insomnia Prednisone Tachycardia 02/18/2018 palpitations documented as of this encounter (statuses as of 06/11/2024) Medications Medication Sig Dispensed Refills Start Date End Date Status MULTIVITAMINS PO TABS 1 tab daily Active [id number] INE SODIUM POWD 20mcg daily Active PROBIOTIC [...] as of this encounter (statuses as of 06/11/2024) Active Problems Problem Noted Date Diagnosed Date [...] Thyroid nodule 04/01/2021 Coronary artery calcification of [place] artery 0 04/01/2021 Chest wall pain, chronic 02/26/2021 Statin intolerance 02/11/2020 Fibromyalgia 01/31/2020 Hx of actinic keratosis 08/25/2016 Major depressive disorder 07/19/2013 Overview: ICD-10 update of inactive term Solitary kidney, congenital 05/02/2012 Overview: Has healthy Left kidney, Congenital absence of right kidney. 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 Displacement of lumbar inter vertebral disc without myelopathy 10/28/2006 ADVANCE DIRECTIVE INFORMATION 12/24/2005 Overview: Pt advised to bring copy of living will. Fatigue 12/24/2005 Sleep apnea 04/22/2004 Pectus excavatum 12/30/2003 DDD (degenerative disc disease), cervical 2002 Esophageal reflux 02/09/2002 documented as of this encounter (statuses as of 06/11/2024) Resolved Problems Problem Noted Date Diagnosed Date Resolved Date Prediabetes 02/15/2022 05/20/2022 Overview: Per Prediabetes protocol Prediabetes 09/21/2021 01/21/2022 Overview: Per Prediabetes protocol Dyspnea 04/01/2021 06/30/2021 Atelectasis, bilateral 04/01/202101/18 Neuropathy 04/01/2021 06/30/2021 Chronic fatigue syndrome 10/17/2009 Other persistent mental diso rders due to conditions classified elsewhere 11/08/2008 06/30/20 21 Pulmonary embolus 11/22/2006 11/04/2016 halfway current use of ant icoagulant therapy 11/22/2006 05/07/2008 Overview: ICD-10 update of inactive term Anticoagulation management encounter 11/22/2006 05/07/2008 Myalgia and myositis 10/28/2006 020 PURE HYPERCHOLESTEROLEM 05/20/200607/08 Overview: Per Lipid Taxonomy. Other allergic rhinitis 09/30/200408/09 Overview: Resolved per [...] as of this encounter (statuses as of 06/11/2024) Immunizations Name Administration Dates Next Due COVID-19 [...] encounter Miscellaneous Notes * Telephone Encounter - Carol Mathew LPN - 06/11/2024 9:49 AM EST Amanda from [place] Anesthesia department is calling. States that the [...] - 05/29/2024 8:36 AM EDT Amanda from [place] Anesthesia dept calling. Pt is scheduled for [...] Description 07/09/2024 11:00 AM EST [facility] [address] [facility] [place] [address] 07/09/2024 12:20 PM EST Office Visit [facility] [address] [facility] [place] [address] Nima Wilder MD [address] [place] [address] 08/09/2024 3:00 PM EST Office Visit Cardiology[facility] [address] [facility] [place] [address] Archie Vasquez PA-C 132 [facility] [place] [address] 11/13/2024 2:00 PM EDT Telemedicine [facility] [address] [facility] [place] [address] Kely Le CRNP 132 [facility] [place] [address] 04/05/2025 2:00 PM EDT Office Visit Neurology [facility] [address] [place] [address] Kney Taylor, DO [address] [facility] [place] [address] 04/10/2025 11:00 AM EDT Office Visit Dermatology [facility] [address] [place] [address] Marie Moctezuma PA-C [address] [place] [address] 05/16/2025 4:20 PM EDT Office Visit [facility] 132 [facility] [place] [address] Leroy Beltran, [address] [place] [address] 06/10/2025 11:00 AM EST Nurse Only Ancillary [facility] [address] [place] [address] De La Cruz, Nurse Annual Wellness [facility] [address] [place] [address] Scheduled Procedures Name Priority Associated Diagnoses Date/Ti [...] this encounter Medical Devices Implanted Type Area Acupressurist Device Identifier Shelf Expiration Date Model / Serial / Lot Sureclip 16mm 235cm - [id number] Implanted:Qty: 1 on 09/22/2022 by Marco Carmona MD at ENDOSCOPY [facility] Colon MICRO TECH ENDOSCOPY 02/07/2024 [id number] / / Duraclip 16mm Xlg Repostn - [id number] Implanted:Qty: 1 on 05/26/2023 by Yvonne Castano DO at ENDOSCOPY [facility] CONMED NAIF 09/23/2024 [id number] / / documented as of this encounter Advance Directives Documents on File Type Date Recorded Patient Audio Visual Secretary Expl anation Advance Directives and Living Will 05/14/2019 ADVANCE DIRECTIVE DELMAR BANKS WILL Power of Convenience Store Manager 05/14/2019 POWER OF A TTORNEY * Full [...] and were consensually agreed upon. Care Teams Police [employer] Secretary Relationship Specialty Start Date End Date Leroy Beltran DO [address] [place] [address] PCP - General Family Medicine 12/03/20 documented as of this encounter
--- OUTSIDE RECORDS SUMMARY | 2024-06-15 09:50 | External Medical Summary | Summary of Care ---
Author Name Unknown Organization [facility] Address [address] [place] [address] Phone [phone] Care Team Providers Care Partner Cco Name Role Phone Leroy Beltran DO Primary Care Provider Reason for Visit * Reason Onset Date Comments Advice 05/29/2024 Encounter Details Date Type Department Care Team (Late st Contact Info) Description 05/29/2024 Telephone Family Practice [facility] [address] [facility] [address] Leroy Beltran DO [address] [place] [address] Advice Allergies Active Allergy Reactions Criticality Noted Date Comments Atorvastatin Muscle pain 02/11/2020 Rosuvastatin 10/20/2021 Brain fog Gabapentin 01/20/2022 Levofloxacin Muscle pain,Other (P lease comment) 11/11/2023 Headache and insomnia Prednisone Tachycardia 02/18/2018 palpitations documented as of this encounter (statuses as of 06/11/2024) Medications Medication Sig Dispensed Refills Start Date End Date Status MULTIVITAMINS PO TABS 1 tab daily Active [id number] INE SODIUM POWD 20mcg daily Active PROBIOTIC [...] Thyroid nodule 04/01/2021 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 States that the [...] - 05/29/2024 8:36 AM EDT Amanda from [place] Anesthesia dept calling. Pt is scheduled for [...] Description 07/09/2024 11:00 AM EST Imaging [facility] [address] [facility] [place] [address] 07/09/2024 12:20 PM EST Office Visit Pulmonary Medicine, [facility] 132 [facility] [place] [address] Nima Wilder [facility] [address] [facility] [address] 08/09/2024 3:00 PM EST Office Visit Cardiology, [facility] [address] [place] [address] Archie Vasquez PA-C [address] [place] [address] 11/13/2024 2:00 PM EDT Telemedicine Family Practice [facility] [address] [place] [address] Kely Le CRNP [address] [place] [address] 04/05/2025 2:00 PM EDT Office Visit Neurology [facility] [address] [facility], [place] [address] Keny Taylor, DO [address] [facility] [place] [address] 04/10/2025 11:00 AM EDT Office Visit Dermatology [facility] [place] [address] [place], [place] [address] Marie Moctezuma PA-C 200 [facility] [place] [address] 05/16/2025 4:20 PM EDT Office Visit Family Practice [facility] [address] [facility] [place] [address] Leroy Beltran DO [address] [place] [address] 06/10/2025 11:00 AM EST Nurse Only Ancillary [facility] [place] [address] De La Cruz, Nurse Annual Wellness [facility] 132 [facility] [place] [address] Scheduled Procedures Name Priority Associated Diagnoses Date/Ti [...] this encounter Medical Devices Implanted Type Area Warehouse Pricing And Inventory Clerk Device Identifier Shelf Expiration Date Model / Serial / Lot Sureclip 16mm 235cm - [id number] Implanted:Qty: 1 on 09/22/2022 by Marco Carmona MD at ENDOSCOPY [facility] Colon MICRO TECH ENDOSCOPY 02/07/2024 [id number] / / Duraclip 16mm Xlg Repostn - [id number] Implanted:Qty: 1 on 05/26/2023 by Yvonne Castano DO at ENDOSCOPY [facility] CONMED NAIF 09/23/2024 [id number] / / documented as of this encounter Advance Directives Documents on File Type Date Recorded 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 Care Teams Partner Cco Relationship Specialty Start Date End Date Leroy Beltran DO [address] [place] [address] PCP - General Family Medicine 12/03/20 documented as of this encounter
--- OUTSIDE RECORDS SUMMARY | 2024-06-15 09:50 | External Medical Summary | Summary of Care ---
Author Name Unknown Organization [facility] Address [address] [place] [address] Phone [phone] Care Team Providers Care Formwork Carpenter Name Role Phone Leroy Beltran DO Primary Care Provider Reason for Visit * Reason Comments pre-op exam Pre op exam, 06/15/20 24 L shoulder replacement. 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; Statin intolerance; Dyslipidemia, goal LDL below 100; Lung nodules; History of Lyme disease; Congenital pectus excavatum; Intertrigo Allergies Active Allergy Reactions Criticality Noted Date Comments Atorvastatin Muscle pain 02/11/2020 Rosuvastatin 10/20/2021 Brain fog Gabapentin 01/20/2022 Levofloxacin Muscle pain,Other (P lease comment) 11/11/2023 Headache and insomnia Prednisone Tachycardia 02/18/2018 palpitations documented as of this encounter (statuses as of 06/09/2024) Medications Medication Sig Dispensed Refills Start Date End Date Status MULTIVITAMINS PO TABS 1 tab daily Active [id number] SODIUM POWD 20mcg daily Active PROBIOTIC COMPLEX [...] injection. 6 mL 3 05/28/2024 Active Nystatin 478582 UNIT/GM External CreamIndications:Co ngenital pectus excavatum,Intertrig o Apply topically to affected area 2 times a day. For 2-4 wks 30 g 06/09/2024 Active documented as of this encounter (statuses as of 06/09/2024) Active Problems Problem Noted Date Diagnosed Date Pneumonia of both lower lobes due to infectious organism 01/17/2024 Lung nodules 01/17/2024 Brain fog 01/17/2024 Acute non intractable tension-type headache 01/06 Immunodeficiency, common variable 01/17/2024 Prolapsed internal hemorrhoids, grade 3 11/24/19 Prediabetes 11/14/2023 Overview: Per Prediabetes protocol Vascular dementia without behavioral disturbance 07/08/2022 ASCVD (arteriosclerotic cardiovascular disease) 02/26/2022 Lumbar degenerative disc disease 02/26/2022 Primary osteoarthritis of right hip 02/26/2022 Moderate episode of recurrent major depressive d isorder 01/05/2022 Thyroid nodule 04/01/2021 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 0 04/01/2021 Chest wall pain, chronic [...] as of this encounter (statuses as of 06/09/2024) Resolved Problems Problem Noted Date Diagnosed Date Resolved Date Prediabetes 02/15/2022 05/20/2022 Overview: Per Prediabetes protocol Prediabetes 09/21/2021 01/21/2022 Overview: Per Prediabetes protocol Dyspnea 04/01/2021 06/30/2021 Atelectasis, bilateral 04/01/202101/18 Neuropathy 04/01/2021 06/30/2021 Chronic fatigue syndrome 10/17/2009 Other persistent mental diso rders due to conditions classified elsewhere 11/08/2008 06/30/20 21 Pulmonary embolus 11/22/2006 11/04/2016 director long term care current use of ant icoagulant therapy 11/22/2006 [...] as of this encounter (statuses as of 06/09/2024) Immunizations Name Administration Dates Next Due COVID-19 [...] Passive Smoke Exposure: Never Smokeless Tobacco: Never Tobacco Cessation:Counseling Given: Not Answered Comments:no passive smoke at home Alcohol Use [...] on file documented as of this encounter Last Filed Vital Signs Vital Sign Reading Time Taken Comments Blood Pressure 120/68 06/09/2024 1:57 PM EDT Pulse 62 06/09/2024 1:57 PM EDT Temperature 36.2 C (97.1 F) 06/09/2024 1:57 PM ED T Respiratory Rate - - Oxygen Saturation 99% 06/09/2024 1:57 PM EDT Inhaled Oxygen Concentration - - Weight 88.7 kg (195 lb 9.6 oz) 06/09/2024 1:57 P M EDT Height 185.4 cm (6' 1") 06/09/2024 1:57 PM EDT Body Mass Index 25.81 06/09/2024 1:57 PM EDT documented in this encounter Progress Notes * Estefania Dent MD - 06/09/2024 2:02 PM EDT SUBJECTIVE: Sebas Bailey Jr. is a 73 year old male. Chief Complaint Patient presents with pre-op exam Pre op exam, 06/15/2024 L shoulder replacement. HPI: Patient presents Is being seen for preoperative evaluation at the request of Dr. Powell Procedure and Date of surgery:left shoulder replacement 06/13/24 Wt Readings from Last 4 Encounters: 06/09/24 88.7 kg (195 lb 9.6 oz) 06/08/24 89.2 kg (196 lb 11.2 oz) 05/14/24 89.1 kg (196 lb 6 oz) 04/12/24 88.5 kg (195 lb) BP Readings from Last 8 Encounters: 06/09/24 120/68 06/08/24 126/64 05/14/24 124/70 04/12/24 110/58 03/23/24 122/74 03/22/24 128/84 01/17/24 130/62 01/12/24 116/74 Patient saw PCP 04/12/2024 er fu, and 05/14/2024, is scheduled today for a preop appointment this is the 1st time I am seeing patient. Patient has history of hypertension, coronary artery calcifications, dyslipidemia with statin intolerance on Repatha followed by Cardiology, history of atypical chest pain with a negative exercise stress echo 04/27/2021, history of pectus active 8 excavatum surgery at [facility] many years ago, history of Lyme disease, chronic Lyme disease managed by outside provider, pulmonary nodules followedby Pulmonology States had preoperative studies done on 05/23/2024, EKGs awaited. Labs-normal CBC, BMP, coags. Review chart. EKG 12/17/2022-NSR at 62 BPM,LAD, 03/15/24--echo-Interpretation Summary The left ventricular cavity size is normal. The LV wall thickness is moderately increased (concentric). The basal septum is thickened and angulated consistent with sigmoid septum. The left ventricular wall motion is normal. The qualitative LV ejection fraction is 60-64% (normal). The left ventricular diastolic function is mildly abnormal (grade I). Moderate aortic valve sclerosis is present. There is trace aortic insufficiency There is mild mitral annular calcificatio EKG-04/06/2024 in the ED-sinus bradycardia at 56 Bpm moderate voltage criteria for LVH maybe normal variant, inferior infarct age undetermined-similar to prior EKG here 12/17/2022 Denies any fever or chills. No runny nose sore throat cough nasal congestion or earache. No chest pain or palpitations. No nausea or vomiting or diarrhea. No dysuria or hematuria. Has chronic joint pains and followed by Ortho. Had a skin rash within his pectus excavatum deformity, has not tried anytopical antifungal creams Hemoglobin AIC Results: Lab Results Component Value Date/Time HEMOGLOBIN A1C - [facility] 5.8 (H) 04/12/2024 11:47 AM HEMOGLOBIN A1C - [facility] 5.7 (H) 11/07/2023 12:44 PM HEMOGLOBIN A1C - [facility] 5.8 (H) 07/08/2022 02:48 PM TSH Results: Lab Results Component Value Date/Time TSH - [facility] 3.01 04/12/2024 11:47 AM TSH - [facility] 1.63 03/25/2023 11:58 AM TSH - [facility] 1.83 12/01/2022 03:57 PM TSH - [facility] 0.27 02/03/2018 11:52 AM TSH - [facility] 0.50 06/20/2014 01:59 PM TSH - [facility] 0.52 06/22/2012 04:43 PM Immunization History Administered Date(s) Administered COVID-19 mRNA, LNP-s, No Preserve, 2-Dose Series (Moderna) 09/02/2020, 10/07/2020 COVID-19 mRNA, LNP-s, PF, 18+ or 6-11Yrs (Moderna) 03/25/2021 COVID-19, mRNA, LNP-s, PF, Booster, 100mcg/0.5mg (Moderna) 03/08/2021 Covid-19, Mrna, Lnp-s, Pf, Bivalent, 50 Mcg, IM, 12 yrs and above (a) 04/23/2022 Diptheria/Tetanus (Adult) 05/20/1995 HEP A - Hepatitis A (Adult > 18 yrs) 11/08/2008, 07/22/2010 Hepatitis B, 20+ yrs 11/08/2008, 12/12/2008 Pneumococcal Conjugate Vacc, 13 Valent (Prevnar) 06/12/2018 Pneumococcal Polysaccharide PPV23 (Pneumovax) 01/31/2020 Seasonal Influenza Vac., MDV, IM, 0.5 mL (Fluzone) 06/21/2002, 05/16/2003, 06/10/2005, 07/12/2006, 05/31/2008, 07/22/2010, 04/27/2011, 04/28/2012 Seasonal Influenza Virus Vaccine, Unspecified Formulation 05/21/1998, 06/21/2002, 05/16/2003, 06/10/2005, 07/12/2006, 05/31/2008, 07/22/2010, 04/27/2011, 04/28/2012, 06/24/2015, 04/30/2020, 04/29/2021 Seasonal Influenza, High Dose, Trivalent, PF, IM (Fluzone HD) 05/14/2024 Seasonal Influenza, PF, 6 M & above, IM , (FluLaval or Fluzone) 04/30/2020 Seasonal Influenza, Quadrivalent Hd (Fluzone Hd) 04/29/2021, 06/03/2022, 05/11/2023 Seasonal Influenza, Quadrivalent, No Preserve, IM 06/24/2015 TD, Preservative Free 06/10/2005 TDAP (age 10 and older)(Boostrix) 12/25/2020 TDAP, Age 7 and older, IM (Adacel) 07/22/2010 Varicella Zoster Vaccine (Adult) 06/21/2013 Zoster Vaccine Recombinant (Shingrix) 10/23/2020, 01/28/2021 Patient Active Problem List Diagnosis Esophageal reflux DDD (degenerative disc disease), cervical Pectus excavatum Sleep apnea ADVANCE DIRECTIVE INFORMATION Fatigue Displacement of lumbar intervertebral disc without myelopathy DYSLIPIDEMIA, GOAL TO BE DETERMINED Glucocorticoid deficiency (HCC) Endocrine disorder Disease of pituitary gland (HCC) Immunologic deficiency syndrome (HCC) Transient insomnia Vitamin D deficiency Adjustment disorder with depressed mood Solitary kidney, congenital Major depressive disorder Hx of actinic keratosis Fibromyalgia Statin intolerance Chest wall pain, chronic Thyroid nodule 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 Moderate episode of recurrent major depressive disorder (HCC) ASCVD (arteriosclerotic cardiovascular disease) Lumbar degenerative disc disease Primary osteoarthritis of right hip Vascular dementia without behavioral disturbance (HCC) Prediabetes Prolapsed internal hemorrhoids, grade 3 Pneumonia of both lower lobes due to infectious organism Lung nodules Brain fog Acute non intractable tension-type headache Immunodeficiency, common variable (HCC) Current Outpatient Medications Medication Sig Dispense Refill MULTIVITAMINS PO TABS 1 tab daily PROBIOTIC COMPLEX ACIDOPHILUS PO CAPS (P-8) one pill each day CYANOCOBALAMIN (VITAMIN B-12) 100 MCG Tablet Take 1 Tablet by mouth in the morning. Airborne Oral Lozenge Take 2 Tabs by mouth daily. Magnesium 400 MG Oral Capsule Take 3 Capsules by mouth in the morning. Vitamin D3 125 MCG (5000 UT) Oral Capsule Take 1 Capsule by mouth in the morning. Hydrocortisone 5 MG Oral Tablet Take by mouth daily . Vitamin K2 100 MCG Oral Capsule Take by mouth daily. With MK7 Melatonin 1 MG Oral Tablet Take 1 Tablet by mouth as needed. Rogaine Extra Strength for Men 5 % External Solution (Minoxidil) Apply topically to affected area once. Apply to scalp Riboflavin 100 MG Oral Capsule Take 1 Capsule by mouth in the morning. valACYclovir HCl 1 GM Oral Tablet (Valtrex) 1 tab as needed for cold sore 90 Tablet 3 Losartan Potassium 25 MG Oral Tablet (Cozaar) Take 1 Tablet by mouth in the morning. 90 Tablet 3 Finasteride 5 MG Oral Tablet (Proscar) Take 1 Tablet by mouth in the morning. 1/4 tab daily. Testosterone Propionate 2 % Transdermal Ointment Place 3 g topically on the skin every 3 days. Testosterone 5%/Progest 0.5% gel. Compound formulation. 60 g 0 Repatha SureClick 140 MG/ML Subcutaneous Solution Auto-injector (evolocumab) Inject 140 mg (1 pen) under the skin every 14 days. Remove from refrigerator 30 minutes prior to injection. 6 mL 3 [id number] SODIUM POWD 20mcg daily Co-Enzyme Q-10 100 MG Oral Capsule Take 500 mg by mouth daily. (Patient not taking: Reported on 06/09/2024) Krill Oil 500 MG Oral Capsule Take 1 Capsule by mouth in the morning. (Patient not taking: Reportedon 06/09/2024) No current facility-administered medications for this visit. Past Medical History: Diagnosis Date Chronic fatigue syndrome Depressive disorder, not elsewhere classified Dyslipidemia, goal to be determined 07/17/2009 Per Lipid Taxonomy. Fibromyalgia 2008 Hypothyroidism Lyme disease Migraine with aura visual aura Pectus excavatum Pulmonary embolism (HCC) 2007 associated with pectus excavatum surgery S/P IVC filter 2006 Shingles ~2013 Sleep apnea back around 1999, not presently Thyrotoxicosis without mention of goiter or other cause, without mention of thyrotoxic crisis or storm Past Surgical History: Procedure Laterality Date COLONOSCOPY 10/2002 repeat 10y COLONOSCOPY, DIAGNOSTIC (RECTUM) 08/23/2013 COLONOSCOPY FLEXIBLE PROXIMAL DIAGNOSTIC performed by Marco Carmona MD at [facility] COLONOSCOPY, DIAGNOSTIC (RECTUM) 09/22/2022 benign adenomatous polyps, repeat 3 yrs / COLONOSCOPY FLEXIBLE PROXIMAL DIAGNOSTIC performed by Marco Carmona MD at [facility]COPY [facility] COLONOSCOPY, DIAGNOSTIC (RECTUM) N/A 05/26/2023 hemorrhoids/moderate diverticulosis/biopsies show hyperplastic polyps/recall 3 years/Colonoscopy COLONOSCOPY, DIAGNOSTIC (RECTUM) 05/26/2023 COLONOSCOPY FLEXIBLE PROXIMAL DIAGNOSTIC performed by Yvonne Castano DO at ENDOSCOPY [facility] DENTAL SURGERY PROCEDURE NEC wisdom teeth EGD, FLEXIBLE, DIAGNOSTIC 09/27/2022 mild inflammation on bx / ESOPHAGOGASTRODUODENOSCOPY (EGD), FLEXIBLE, TRANSORAL, DIAGNOSTIC performed by Yvonne Castano DO at ENDOSCOPY [facility] EGD, W/ENDOSCOPIC US 09/27/2022 normal / ESOPHAGOGASTRODUODENOSCOPY (EGD), FLEXIBLE, TRANSORAL, ENDOSCOPIC ULTRASOUND performed by Yvonne Castano DO at ENDOSCOPY [facility] HEMORRHOIDECTOMY, INTERNAL, 2 + COLUMNS N/A 12/06/2023 HEMORRHOIDECTOMY EXTERNAL AND INTERNAL COMPLEX performed by Ld Arauz MD at OR [facility] INFORMATION 2007 IVC filter INFORMATION Left 12/24/2015 left L4-5 epidural steroid injection INJECT FOR SPINE DISK X-RAY, LUMBAR Right 05/25/2017 rt paramedian disc hernation L5-s1 LAPAROSCOPY; CHOLECYSTECTOMY N/A 12/12/2020 LAPAROSCOPY; CHOLECYSTECTOMY N/A 12/12/2020 ROBOTIC LAPAROSCOPIC CHOLECYSTECTOMY performed by Archie Castro MD at OR [facility] LUMBAR / SACRAL EPIDURAL, SINGLE LEVEL Right L5 to S1 epidural steroid injection LUMBAR SPINE FUSION W/BONE GRAFT 05/22/2019 L4-L5 decompression, PSIF L4-L5, TLIF L4-L5, iliac crest autograf MASTECTOMY, SIMPLE, COMPLETE 01/2011 bilateral, no evidence of cancer RECONSTRUCT PECTUS EVACATUM 2006 removal of bar 08/17 REMOVAL OF THYROID LOBE, TOTAL Left 06/18/2021 TOTAL THYROID LOBECTOMY UNILATERAL performed by Felix Saavedra DO at OR [facility] REMOVAL OF TONSILS, UNDER AGE 12 1959 Tonsillectomy,<12 Y/O REMOVE CATARACT, INSERT LENS PROSTH Left 11/29/2016 REMOVE PART OF LUMBAR VERTEBRA 2021 SPINAL FUSION, LUMBAR, COMBINED 2018 Review of patient's allergies indicates: Allergen Reactions Atorvastatin Muscle pain Crestor [Rosuvastatin] Brain fog Gabapentin Levaquin [Levofloxacin] Muscle pain and Other (Please comment) Headache and insomnia Prednisone Tachycardia palpitations Family History Problem Relation Name Age of Onset Cancer Mother Judy breast Stroke Mother Judy Heart Disorder Father pericarditis, CABG in 2003 Cancer Father CLL Cancer Grandmother (Paternal) stomach Social History Tobacco Use Smoking status: Never Passive exposure: Never Smokeless tobacco: Never Tobacco comments: no passive smoke at home Vaping Use Vaping status: Never Used Substance Use Topics Alcohol use: Yes Comment: rare Drug use: Never OBJECTIVE: BP 120/68 | Pulse 62 | Temp 36.2 C (97.1 F) (Tympanic) | Ht 1.854 m (6' 1") | Wt 88.7 kg (195 lb 9.6 oz) | SpO2 99% | BMI 25.81 kg/m | BSA 2.14 m PHYSICAL EXAM: General: alert, healthy, no distress, well nourished and well developed Head: Normocephalic, atraumatic Eye Exam: PERRLA, EOMI, Conjunctiva are pink and non-injected, sclera clear Ears: External ears normal, Canal clear, TM nml Nose: no mucosal erythema, no mucosal edema, no purulent discharge Oropharynx: no exudate and no erythema Neck: supple, no adenopathy, no JVD, thyroid normal size, non-tender, without nodularity Lymph: No palpable lymphadenopathy. Heart: regular Rhythm and rate, no murmurs. Lungs: lungs clear to auscultation Abdomen: soft, non-tender, normal bowel sounds, no masses or organomegaly, no bruits Extremities: no edema, no clubbing, no cyanosis Neuro Exam: alert & oriented x 3 with fluent speech, no focal motor deficits, gait normal Chest wall-pack pectus excavatum. 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 For 2-4 wks Intertrigo - Nystatin [id number] UNIT/GM External Cream; Apply topically to affected area 2 times a day. For 2-4 wks Patient is at low risk For perioperative cardiac event and may undergo the proposed surgery under noninvasive cardiac monitoring. Ct losartan Follow Up: Return if symptoms worsen or fail to improve. Cc - referring provider.. (This note was completed using the dictation program Fluency Direct. As such, there may be misspellings, word substitutions, or other variations that should not change the essence of the clinical content of this encounter note. If there is need for further clarification, please direct questions to the provider listed above.) Patient and / caregiver verbalize understanding of above instructions and agrees with plan of care. Estefania Dent MD 06/09/2024 documented in this encounter Nursing Notes * King Stovall CMA - 06/09/2024 1:55 PM EDT The patient has been properly identified by confirmation of name and date of . Chief Complaint Patient presents with pre-op exam Pre op exam. documented in this encounter Plan of Treatment Upcoming Encounters Date Type Department Care Team (Late st Contact Info) Description 07/09/2024 11:00 AM EST [facility] [address] [facility] [place] [address] 07/09/2024 12:20 PM EST Office Visit Pulmonary Medicine, [facility] [address] [place] [address] Nima Wilder [facility] [address] [facility] [address] 08/09/2024 3:00 PM EST Office Visit Cardiology, [facility] [address] [place] [address] Archie Vasquez PA-C [address] [place] [address] 11/13/2024 2:00 PM EDT Telemedicine Family Practice [facility] [address] [place] [address] Kely Le CRNP [address] [place] [address] 04/05/2025 2:00 PM EDT Office Visit [facility] [place] [address] [facility] [address] Keny Taylor, DO [address] [place] [address] 04/10/2025 11:00 AM EDT [facility] [address] [facility] [place] [address] Marie Moctezuma PA-C [address] [facility] [place] [address] 05/16/2025 4:20 PM EDT Office Visit Family Practice [facility] [address] [facility] [place] [address] Leroy Beltran DO [address] [facility] [place] [address] 06/10/2025 11:00 AM EST Nurse Only Ancillary [facility] [address] [facility] [place] [address] De La Cruz, Nurse Annual Wellness [facility] [address] [facility] [place] [address] Scheduled Procedures Name Priority Associated Diagnoses Date/Ti [...] this encounter Medical Devices Implanted Type Area Risk Control Director Device Identifier Shelf Expiration Date Model / Serial / Lot Sureclip 16mm 235cm - [id number] Implanted:Qty: 1 on 09/22/2022 by Marco Carmona MD at ENDOSCOPY [facility] Colon MICRO TECH ENDOSCOPY 02/07/2024 [id number] / / Duraclip 16mm Xlg Repostn - [id number] Implanted:Qty: 1 on 05/26/2023 by Yvonne Castano DO at [facility] CONInfomous NAIF 09/23/2024 [id number] / / documented as of this encounter Visit Diagnoses Diagnosis Preoperative general physical examination- Primary Other specified pre-operative examination Arthritis of left shoulder region Unspecified arthropathy, shoulder region LVH (left ventricular hypertrophy) due to hypertensive disease, without heart failure Non-rheumatic aortic sclerosis Atherosclerosis of aorta 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 Coronary atherosclerosis of chicken ranch coronary artery Statin intolerance Other drug allergy Dyslipidemia, goal LDL below 100 Other and unspecified hyperlipidemia Lung nodules Other nonspecific abnormal finding of lung field History of Lyme disease Personal history of other infectious and parasitic disease Congenital pectus excavatum Pectus excavatum Intertrigo Other specified erythematous condition documented in this encounter Advance Directives Documents on File Type Date Recorded Patient Academic Specialist Expl anation Advance Directives and Living Will 05/14/2019 ADVANCE DIRECTIVE DELMAR BANKS WILL Power of Veterinary Poultry Inspector 05/14/2019 POWER OF A TTORNEY * Full [...] and were consensually agreed upon. Care Teams Formwork Carpenter Relationship Specialty Start Date End Date Leroy Beltran DO [address] [place] [address] PCP - General Family Medicine 12/03/20 documented as of this encounter
--- OUTSIDE RECORDS SUMMARY | 2024-06-15 09:50 | External Medical Summary | Summary of Care ---
Author Name Unknown Organization [facility] Address [address] [place] [address] Phone [phone] Care Team Providers Care Bottoming Room Inspector Name Role Phone Leroy Beltran Primary Care Provider Reason for Visit * Reason Onset Date Comments Encounter Created in Error 06/11/2024 Encounter Details Date Type Department Care Team (Late st Contact Info) Description 06/11/2024 Telephone General [facility] [address] [place] [address] Estefania Dent MD [address] [place] [address] Encounter Created in Error Allergies Active Allergy Reactions Criticality Noted Date Comments Atorvastatin Muscle pain 02/11/2020 Rosuvastatin 10/20/2021 Brain fog Gabapentin 01/20/2022 Levofloxacin Muscle pain,Other (P lease comment) 11/11/2023 Headache and insomnia Prednisone Tachycardia 02/18/2018 palpitations documented as of this encounter (statuses as of 06/11/2024) Medications Medication Sig Dispensed Refills Start Date End Date Status MULTIVITAMINS PO TABS 1 tab daily Active [id number] SODIUM POWD 20mcg daily Active PROBIOTIC COMPLEX [...] injection. 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 (Household - for ages [...] on file documented as of this encounter Plan of Treatment Upcoming Encounters Date Type Department Care Team (Late st Contact Info) Description 07/09/2024 11:00 AM EST Imaging Radiology [facility] [address] [facility] [place] [address] 07/09/2024 12:20 PM EST Office Visit Pulmonary Medicine, [facility] [address] [place] [address] Nima Wilder MD [address] [facility] [place] [address] 08/09/2024 3:00 PM EST Office Visit Cardiology, [facility] [address] [place] [address] Archie Vasquez PA-C [address] [place] [address] 11/13/2024 2:00 PM EDT Telemedicine Family Practice [facility] [address] [place] [address] Kely Le CRNP [address] [place] [address] 04/05/2025 2:00 PM EDT Office [facility] [address] [place] [address] Keny Taylor, DO [address] [place] [address] 04/10/2025 11:00 AM EDT Office [facility] [address] [place] [address] Marie Moctezuma PA-C [address] [place] [address] 05/16/2025 4:20 PM EDT Office Visit Family Practice [facility] [address] [place] [address] Leroy Beltran, DO [address] [place] [address] 06/10/2025 11:00 AM EST Nurse Only Ancillary [facility] [address] [place] [address] De La Cruz, Nurse Annual Wellness [facility] [address] [place] [address] Scheduled Procedures Name Priority Associated Diagnoses Date/Ti [...] this encounter Medical Devices Implanted Type Area Lead Developer Device Identifier Shelf Expiration Date Model / Serial / Lot Sureclip 16mm 235cm - [id number] Implanted:Qty: 1 on 09/22/2022 by Marco Carmona MD at ENDOSCOPY [facility] Colon MICRO TECH ENDOSCOPY 02/07/2024 [id number] / / Duraclip 16mm Xlg Repostn - [id number] Implanted:Qty: 1 on 05/26/2023 by Yvonne Castano DO at ENDOSCOPY [facility] CONMED NAIF 09/23/2024 [id number] / / documented as of this encounter Advance Directives Documents on File Type Date Recorded Patient Library Services Dean Expl anation Advance Directives and Living Will 05/14/2019 ADVANCE DIRECTIVE DELMAR NICCISkip WILL Power of Log Clerk 05/14/2019 POWER OF A TTORNEY * Full [...] and were consensually agreed upon. Care Teams Bottoming Room Inspector Relationship Specialty Start Date End Date Leroy Beltran DO [facility] [address] PCP - General Family Medicine 12/03/20 documented as of this encounter
--- OUTSIDE RECORDS SUMMARY | 2024-06-15 09:51 | External Medical Summary | Summary of Care ---
Author Name Unknown Organization [facility] Address [address] [place] [address] Phone [phone] Care Team Providers Care Certified Drug Counselor Name Role Phone Leroy Beltran DO Primary Care Provider Reason for Visit * Reason Onset Date Comments Advice 05/29/2024 Encounter Details Date Type Department Care Team (Late st Contact Info) Description 05/29/2024 Telephone Family Practice [facility] [address] [facility] [address] Leroy Beltran DO [address] [place] [address] Advice Allergies Active Allergy Reactions Criticality Noted Date Comments Atorvastatin Muscle pain 02/11/2020 Rosuvastatin 10/20/2021 Brain fog Gabapentin 01/20/2022 Levofloxacin Muscle pain,Other (P lease comment) 11/11/2023 Headache and insomnia Prednisone Tachycardia 02/18/2018 palpitations documented as of this encounter (statuses as of 05/29/2024) Medications Medication Sig Dispensed Refills Start Date End Date Status MULTIVITAMINS PO TABS 1 tab daily Active [id number] SODIUM POWD 20mcg daily Active PROBIOTIC COMPLEX [...] the morning. 90 Tablet 3 12/26/2023 Active Amoxicillin 500 MG Oral Tablet Take 1 Tablet by mouth. 03/26/2024 Active Finasteride 5 MG Oral Tablet (Proscar) Take 1 Tablet by mouth in the morning. 1/4 tab daily. 03/31/2024 Active Pantoprazole Sodium 20 MG Oral Tablet Delayed Release (Protonix) Take 1 Tablet by mouth in the morning. 28 Tablet 04/20/2024 Active Additional Information Patient not taking.Reported on 05/14/2024 Testosterone Propionate 2 % Transdermal OintmentIndications :Hypotestosteronism [...] to injection. 6 mL 3 05/28/2024 Active documented as of this encounter (statuses as of 05/29/2024) Active Problems Problem Noted Date Diagnosed Date [...] as of this encounter (statuses as of 05/29/2024) Resolved Problems Problem Noted Date Diagnosed Date Resolved Date Prediabetes 02/15/2022 05/20/2022 Overview: Per Prediabetes protocol Prediabetes 09/21/2021 01/21/2022 Overview: Per Prediabetes protocol Dyspnea 04/01/2021 06/30/2021 Atelectasis, bilateral 04/01/202101/18 Neuropathy 04/01/2021 06/30/2021 Chronic fatigue syndrome 10/17/2009 Other persistent mental diso rders due to conditions classified elsewhere 11/08/2008 06/30/20 21 Pulmonary embolus 11/22/2006 11/04/2016 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 (Household - for ages [...] encounter Miscellaneous Notes * Telephone Encounter - Anette Alcantar OSA [...] - 05/29/2024 8:36 AM EDT Amanda from [place] Anest[facility] dept calling. Pt is scheduled for [...] Care Team (Late st Contact Info) Description 06/08/2024 1:00 PM EDT Nurse Only Ancillary [address] [place] [address] Jono, Nurse Annual Wellness [address] [place] [address] 06/09/2024 1:40 PM EDT Office Visit Family Practice [address] [place] [address] Estefania Dent MD [address] [place] [address] 07/09/2024 11:00 AM EST Imaging Radiology [facility] [place] [address] 07/09/2024 12:20 PM EST Office Visit Pulmonary Medicine, [facility] [address] [place] [address] Nima Wilder MD [address] [place] [address] 08/09/2024 3:00 PM EST Office Visit Cardiology, [facility] [address] [facility] [place] [address] Archie Vasquez PA-C [address] [facility] [place] [address] 11/13/2024 2:00 PM EDT Telemedicine Family Practice [facility] [address] [facility] [place] [address] Kely Le CRNP [address] [facility] [place] [address] 04/05/2025 2:00 PM EDT Office Visit Neurology [facility] [place] [address] Keny Taylor, DO [address] [place] [address] 04/10/2025 11:00 AM EDT Office Visit Dermatology [facility] [place] [address] Marie Moctezuma PA-C [address] [facility] [place] [address] Scheduled Procedures Name Priority Associated Diagnoses Date/Ti me COLONOSCOPY FLEXIBLE PROXIMAL DIAGNOSTIC Recall History of colon polyps Health Maintenance Due Date Last Done Comments Cologuard 1997 Fecal Occult Blood Test 1997 Sigmoidoscopy 1997 Hepatitis B Vaccine (3 of 3 - 19+ 3-dose series) 05/10/2009 12/12/2008, 11/08/2008 COVID-19 Vaccine ( season) 2024 04/23/2022, 03/08/2021, 10/07/2020, Additional history exists Adult Wellness Visit 06/06/2024 06/06/2023, 06/04/20 22 Depression Monitoring 06/06/2024 06/06/2023 HbA1c 04/12/2025 04/12/2024, 04/0 08/2023, 07/08/2022, Additional history exists Colonoscopy 05/26/2026 05/26/2023, 05/08, 09/22/2022, Additional history [...] this encounter Medical Devices Implanted Type Area Vessel Liner Device Identifier Shelf Expiration Date Model / Serial / Lot Sureclip 16mm 235cm - [id number] Implanted:Qty: 1 on 09/22/2022 by Marco Carmona MD at ENDOSCOPY [facility] Colon MICRO TECH ENDOSCOPY 02/07/2024 [id number] / / Duraclip 16mm Xlg Repostn - [id number] Implanted:Qty: 1 on 05/26/2023 by Yvonne Castano DO at ENDOSCOPY [facility] VOIP DepotMED NAIF 09/23/2024 [id number] / / documented as of this encounter Advance Directives Documents on File Type Date Recorded Patient Oven Baker Expl anation Advance Directives and Living Will 05/14/2019 ADVANCE DIRECTIVE DELMAR PETERSON Power of Desktop Architect 05/14/2019 POWER OF A TTORNEY * Full [...] and were consensually agreed upon. Care Teams Certified Drug Counselor Relationship Specialty Start Date End Date Leroy Beltran DO [address] [place] [address] PCP - General Family Medicine 12/03/20 documented as of this encounter
--- OUTSIDE RECORDS SUMMARY | 2024-06-15 09:51 | External Medical Summary | Summary of Care ---
Author Name Unknown Organization [facility] Address [address] [place] [address] Phone [phone] Care Team Providers Care Register Of Wills Name Role Phone Leroy Beltran Primary Care Provider Reason for Visit * Reason Comments Medication Refill Encounter Details Date Type Department Care Team (Late st Contact Info) Description 05/28/2024 Refill Cardiology, [facility] [address] [facility] [place] [address] Diann Tovar PA-C [address] [facility] [place] [address] Dyslipidemia, goal LDL below 70* Allergies Active Allergy Reactions Criticality Noted Date Comments Atorvastatin Muscle pain 02/11/2020 Rosuvastatin 10/20/2021 Brain fog Gabapentin 01/20/2022 Levofloxacin Muscle pain,Other (P lease comment) 11/11/2023 Headache and insomnia Prednisone Tachycardia 02/18/2018 palpitations documented as of this encounter (statuses as of 05/28/2024) Medications Medication Sig Dispensed Refills Start Date End Date Status MULTIVITAMINS PO TABS 1 tab daily Active [id number] E SODIUM POWD 20mcg daily Active PROBIOTIC COMPLEX [...] Active valACYclovir HCl 1 GM Oral Tablet (Valtrex)Indicatio ns:Cold sore 1 tab as needed for cold sore 90 Tablet 3 09/06/2023 Active Losartan Potassium 25 MG Oral Tablet (Cozaar)Indication s:HTN, goal below 130/80 Take 1 Tablet by [...] on 05/14/2024 Testosterone Propionate 2 % Transdermal OintmentIndication s:Hypotestosteroni sm Place 3 g topically on the skin every 3 days. Testosterone 5%/Progest 0.5% gel. Compound formulation. 60 g 04/24/2024 Active Repatha SureClick 140 MG/ML Subcutaneous Solution Auto-injector (evolocumab)Indica tions:Dyslipidemia , goal LDL below 70 Inject 140 mg (1 pen) under the skin every 14 days. Remove from refrigerator 30 minutes prior to injection. 6 mL 3 05/28/2024 Active Repatha SureClick 140 MG/ML Subcutaneous Solution Auto-injector (evolocumab) Inject 140 mg (1 pen) under the skin every 14 days. Remove from refrigerator 30 minutes prior to injection. 6 mL 3 07/05/2023 Discontinue d(Refill) documented as of this encounter (statuses as of 05/28/2024) Active Problems Problem Noted Date Diagnosed Date [...] Thyroid nodule 04/01/2021 Coronary artery calcification of [place] artery 0 04/01/2021 Chest wall pain, chronic [...] excavatum 12/30/2003 DDD (degenerative disc disease), cervical 02/06/ 2003 Esophageal reflux 02/09/2002 documented as of this encounter (statuses as of 05/28/2024) Resolved Problems Problem Noted Date Diagnosed Date [...] as of this encounter (statuses as of 05/28/2024) Immunizations Name Administration Dates Next Due COVID-19 [...] encounter Miscellaneous Notes * Telephone Encounter - Ashlie Jiménez PA-C - 05/28/2024 1:30 PM EDTSigned Prescriptions: Disp Refills Repatha SureClick 140 MG/ML Subcutaneous S*6 mL 3 Sig: Inject 140 mg (1 pen) under the skin every 14 days. Remove from refrigerator 30 minutes prior to injection. Authorizing Provider: ASHLIE JIMÉNEZ * Telephone Encounter - Anette Porter CMA - 05/28/2024 1:16 PM EDTPending Prescriptions: Disp Refills Repatha SureClick 140 MG/ML Subcutaneous S*6 mL 3 Sig: Inject 140 mg (1 pen) under the skin every 14 days. Remove from refrigerator 30 minutes prior to injection. * Telephone Encounter - Anette Porter CMA - 05/28/2024 1:16 PM EDT Did you pend patient's preferred pharmacy and medication before forwarding?yes Pharmacy: [facility] Pending Prescriptions: Disp Refills Repatha SureClick 140 MG/ML Subcutaneous *6 mL 3 Sig: Inject 140 mg (1 pen) under the skin every 14 days. Remove from refrigerator 30 minutes prior to injection. Last Visit: 12/26/2023 (in office), Visit date not found (telemedicine) Next Visit: 08/09/2024 If no future appointments scheduled, and last appointment is greater than a year ago, please schedule patient for a follow-up appointment Last date the medication was ordered: 07-05-2023 Is this request for a controlled substance?No Urine Drug Screen:No results found. However, due to the size of the patient record, not all encounters were searched. Please check Results Review for a complete set of results. Patient Phone Numbers Labs: Lab Results Component Value Date/Time CREAT 0.83 05/23/2024 12:00 AM CREAT 0.67 (L) 11/16/2021 07:14 AM CREAT 1.0 02/02/2019 01:40 PM POTASSIUM 4.5 05/23/2024 12:00 AM POTASSIUM 3.7 11/16/2021 07:14 AM POTASSIUM 4.3 02/02/2019 01:40 PM TSH 3.01 04/12/2024 11:47 AM TSH 0.27 02/03/2018 11:52 AM LDL 35 04/12/2024 11:47 AM LDL 77 01/24/2019 12:45 PM LDL NOT APPLICABLE 01/24/2019 12:45 PM LDLCALC 114 (H) 09/08/2016 12:00 AM ALT 31 04/12/2024 11:47 AM ALT 24 10/13/2021 01:52 PM ALT 35 02/02/2019 01:40 PM HGBA1C 5.8 (H) 04/12/2024 11:47 AM documented in this encounter Plan of Treatment Upcoming Encounters Date Type Department Care Team (Late st Contact Info) Description 06/08/2024 1:00 PM EDT Nurse Only Ancillary [facility] 132 [facility] [place] [address] De La Cruz, Nurse [facility] [address] [place] [address] 07/09/2024 11:00 AM EST Imaging Radiology [facility] 132 [facility] [place] [address] 07/09/2024 12:20 PM EST Office Visit Pulmonary Medicine, [facility] 132 [facility] [address] Nima Wilder MD [address] [place] [address] 08/09/2024 3:00 PM EST Office Visit Cardiology, [facility] [address] [facility] [place] [address] Ashlie Jiménez PA-C [address] [place] [address] 11/13/2024 2:00 PM EDT Telemedicine Family Practice [facility] [address] [facility] [place] [address] Kely Le CRNP 132 [facility] [place] [address] 04/05/2025 2:00 PM EDT Office Visit Neurology [facility] 200 [facility] [place] [address] Keny Taylor, DO [address] [place] [address] 04/10/2025 11:00 AM EDT Office Visit Dermatology [facility] [address] [facility] [place] [address] Marie Moctezuma PA-C [address] [facility] [place] [address] Scheduled Procedures Name Priority Associated Diagnoses Date/Ti [...] this encounter Medical Devices Implanted Type Area Paper Cone Machine Operator Device Identifier Shelf Expiration Date Model / Serial / Lot Sureclip 16mm 235cm - [id number] Implanted:Qty: 1 on 09/22/2022 by Marco Carmona MD at ENDOSCOPY [facility] Colon MICRO TECH ENDOSCOPY 02/07/2024 [id number] / / Duraclip 16mm Xlg Repostn - [id number] Implanted:Qty: 1 on 05/26/2023 by Yvonne Castano DO at ENDOSCOPY [facility] CONMED NAIF 09/23/2024 [id number] / / documented as of this encounter Visit Diagnoses Diagnosis Dyslipidemia, goal LDL below 70- Primary Other and unspecified hyperlipidemia documented in this encounter Advance Directives Documents on File Type Date Recorded Patient Crew Director Expl anation Advance Directives and Living Will 05/14/2019 ADVANCE DIRECTIVE LI JOCELYN WILL Power of Manager Parking 05/14/2019 POWER OF A TTORNEY * Full [...] and were consensually agreed upon. Care Teams Register Of Wills Relationship Specialty Start Date End Date Leroy Beltran DO [address] [place] [address] PCP - General Family Medicine 12/03/20 documented as of this encounter
--- OUTSIDE RECORDS SUMMARY | 2024-06-15 09:51 | External Medical Summary | Summary of Care ---
Author Name Unknown Organization [facility] Address [address] [place] [address] Phone [phone] Care Team Providers Care Computer Technology Instructor Name Role Phone Leroy Beltran Primary Care Provider Reason for Visit * Reason Onset Date Comments Adult Annual Wellness Visit, Subsequent Visit Encounter Details Date Type Department Care Team (Late st Contact Info) Description 06/08/2024 1:00 PM EDT Nurse Only Ancillary [facility] [address] [place] [address] [facility] [address] [place] [address] Adult Annual Wellness Visit, Subsequent Visit Allergies Active Allergy Reactions Criticality Noted Date Comments Atorvastatin Muscle pain 02/11/2020 Rosuvastatin 10/20/2021 Brain fog Gabapentin 01/20/2022 Levofloxacin Muscle pain,Other (P lease comment) 11/11/2023 Headache and insomnia Prednisone Tachycardia 02/18/2018 palpitations documented as of this encounter (statuses as of 06/08/2024) Medications Medication Sig Dispensed Refills Start Date End Date Status MULTIVITAMINS PO TABS 1 tab daily Active [id number] INE SODIUM POWD 20mcg daily Active PROBIOTIC [...] morning. 28 Tablet 4 06/08/20 24 Discontinued(Med [facility] List Clean Up) documented as of this encounter (statuses as of 06/08/2024) Active Problems Problem Noted Date Diagnosed Date [...] Thyroid nodule 04/01/2021 Coronary artery calcification of [place] artery 0 04/01/2021 Chest wall pain, chronic [...] as of this encounter (statuses as of 06/08/2024) Resolved Problems Problem Noted Date Diagnosed Date Resolved Date Prediabetes 02/15/2022 05/20/2022 Overview: Per Prediabetes protocol Prediabetes 09/21/2021 01/21/2022 Overview: Per Prediabetes protocol Dyspnea 04/01/2021 06/30/2021 Atelectasis, bilateral 04/01/202101/18 Neuropathy 04/01/2021 06/30/2021 Chronic fatigue syndrome 10/17/2009 Other persistent mental diso rders due to conditions classified elsewhere 11/08/2008 06/30/20 21 Pulmonary embolus 11/22/2006 11/04/2016 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 11/22/2006 [...] as of this encounter (statuses as of 06/08/2024) Immunizations Name Administration Dates Next Due COVID-19 [...] Sign Reading Time Taken Comments Blood Pressure 126/64 06/08/2024 1:02 PM EDT Pulse 76 06/08/2024 1:02 PM EDT Temperature 36.7 C (98 F) 06/08/2024 1:02 PM EDT Respiratory Rate - - Oxygen Saturation - - Inhaled Oxygen Concentration - - Weight 89.2 kg (196 lb 11.2 oz) 06/08/2024 1:02 PM EDT Height 185.4 cm (6' 1") 06/08/2024 1:02 PM EDT Body Mass Index 25.95 06/08/2024 1:02 PM EDT documented in this encounter Patient Instructions * Patient Instructions* Yumiko Wilkins RN - 06/08/2024 12:56 PM EDT Hi Mr. Bailey, As your primary care physician, I know that regular visits with my patients who have several chronic conditions can go a long way in helping you stay healthy. Many times, the clinic team and I are in touch with you and/or other care team members between office visits to adjust medications, discuss any changes in your health, and review our care plan to make sure it is still meeting your needs. I am dedicated to helping you take a more active role in your overall care. It is important that there are resources available to you, so I created a personalized plan of care with a Health Calendar for you, which is included on the next page of this letter. Below is a list that summarizes your electronic health record: Health Maintenance Due: Health Maintenance Due Topic Date Due Hepatitis B Vaccine (3 of 3 - 19+ 3-dose series) 05/10/2009 COVID-19 Vaccine ( season) 2024 Depression Monitoring 06/06/2024 Adult Wellness Visit 06/06/2024 Current Medication List: (as of Visit date not found (in office), Visit date not found (telemedicine) ) Current Outpatient Medications Medication Sig Dispense Refill MULTIVITAMINS PO TABS 1 tab daily [id number] SODIUM POWD 20mcg daily PROBIOTIC COMPLEX ACIDOPHILUS PO CAPS (P-8) one pill each day CYANOCOBALAMIN (VITAMIN B-12) 100 MCG Tablet Take 1 Tablet by mouth in the morning. Airborne Oral Lozenge Take 2 Tabs by mouth daily. Magnesium 400 MG Oral Capsule Take 3 Capsules by mouth in the morning. Vitamin D3 125 MCG (5000 UT) Oral Capsule Take 1 Capsule by mouth in the morning. Co-Enzyme Q-10 100 MG Oral Capsule Take 500 mg by mouth daily. Krill Oil 500 MG Oral Capsule Take [...] mouth in the morning. 90 Tablet 3 Amoxicillin 500 MG Oral Tablet Take 1 Tablet by mouth. (Patient not taking: Reported on 05/14/2024) Finasteride 5 MG Oral Tablet (Proscar) Take 1 Tablet by mouth in the morning. 1/4 tab daily. Pantoprazole Sodium 20 MG Oral Tablet Delayed Release (Protonix) Take 1 Tablet by mouth in the morning. (Patient not taking: Reported on 05/14/2024) 28 Tablet 0 Testosterone Propionate 2 % Transdermal Ointment Place 3 g topically on the skin every 3 days. Testosterone 5%/Progest 0.5% gel. Compound formulation. 60 g 0 Repatha SureClick 140 MG/ML Subcutaneous Solution Auto-injector (evolocumab) Inject 140 mg (1 pen) under the skin every 14 days. Remove from refrigerator 30 minutes prior to injection. 6 mL 3 No current facility-administered medications for this visit. Current List of Allergies: (as of Visit date not found (in office), Visit date not found (telemedicine) ) Review of patient's allergies indicates: Allergen Reactions Atorvastatin Muscle pain Crestor [Rosuvastatin] Brain fog Gabapentin Levaquin [Levofloxacin] Muscle pain and Other (Please comment) Headache and insomnia Prednisone Tachycardia palpitations Most Recent Lab Results: Results for orders placed or performed in visit on 05/25/24 CHEMISTRY-OUTSIDE Result Value Ref Range Not all results display below - see scan for full detail CREATININE 0.83 0.6 - 1.4 MG/DL EGFR 93.57 POTASSIUM 4.5 3.5 - 5.1 MMOL/L GLUCOSE 93 70 - 99 MG/DL HOURS FASTING TRIGLYCERIDES-OUTSIDE LAB CHOLESTEROL-OUTSIDE LAB HDL-OUTSIDE LAB CHOL/HDL RATIO-OUTSIDE LAB LDL (CALCULATED)-OUTSIDE LAB LDL (DIRECT MEASURE)-OUTSIDE LAB HEMOGLOBIN, [id number] LAB PHOSPHORUS-OUTSIDE LAB PTH-OUTSIDE LAB MICROALBUMIN RATIO-OUTSIDE LAB PROTEIN, UA-OUTSIDE LAB HGB 15.4 14.0 - 18.0 G/DL *Note: Due to a large number of results and/or encounters for the requested time period, some results have not been displayed. A complete set of results can be found in Results Review. Sincerely, Leroy Beltran, DO 06/08/2024 [employer] Calendar (as of Visit date not found (in office), Visit date not found (telemedicine) ) Care needs Care needs Last completed Due next Hepatitis B vaccine (3 of 3 - 19+ 3-dose series) 12/12/2008 05/10/2009 COVID-19 Vaccine (2023- season) 2022 04/08/2024 Adult Wellness Visit 06/06/2023 06/06/2024 A1C blood sugar test 04/12/2024 04/12/2025 Colorectal cancer screening (colonoscopy 10 years, sigmoidoscopy 5 years, Cologuard 3 years, stool sample 1 year) 05/26/2023 05/26/2026 Diphtheria, tetanus & pertussis vaccines (3 - Td or Tdap) 12/25/2020 12/25/2030 As you look over the recommended services, be sure to check with your insurance company to determine what's covered. [employer] is a great tool that helps you review your medical record online, including test results, doctor notes and your health summary. You can also schedule appointments with me and other members of your care team, request prescription refills and ask for advice related to your medical conditions at [email or web address]. Patient Instructions - Fall Prevention (This education is for all patients over 65 regardless of symptoms) Remember to take your current medications as prescribed. In order to prevent falls, you are encouraged to: Exercise Utilize assistive/adaptive devices Avoid multifocal lenses when walking Avoid hazards in home Maintain a regular toileting schedule Any questions please contact our office. Preventing Falls in the Home (This education is for all patients over 65 regardless of symptoms) As you get older, falls are more likely. Thats because your reaction time slows. Your muscles and joints may also get stiffer, making them less flexible. Illness, medications, and vision changes can also affect your balance. A fall could leave you unable to live on your own. To make your home safer, follow these tips: Floors Put nonskid pads under area rugs Remove throw rugs Replace worn floor coverings Tack carpets firmly to each step on carpeted stairs. Put nonskid strips on the edges of uncarpeted stairs Keep floors and stairs free of clutter and cords Arrange furniture so there are clear pathways Clean up any spills right away Bathrooms Install grab bars in the tub or shower Apply nonskid strips or put a nonskid rubber mat in the tub or shower Sit on a bath chair to bathe Use bathmats with nonskid backing Lighting Keep a flashlight in each room Put a nightlight along the pathway between the bedroom and the bathroom [employer] Patient Education Copyright 2008 - 2010 [employer] except where otherwise noted documented in this encounter Progress Notes * Yumiko Wilkins RN - 06/08/2024 12:56 PM EDT Adult Annual Wellness Visit: Sebas Bailey Jr. is a 73 year old male who presents for an Adult Annual Wellness Visit. Depression Screening: Did the patient complete the screening questionnaire for Depression? Yes Is the patient's total score for Depression 15 or greater? No, no further intervention needed, unless requested by patient. Did the patient answer positively to the suicide question? No, no further intervention needed, unless requested by patient. In general, compared to other people your age, what would you say that your health is? Very Good Ht Readings from Last 1 Encounters: 06/08/24 1.854 m (6' 1") Wt Readings from Last 1 Encounters: 06/08/24 89.2 kg (196 lb 11.2 oz) Body Mass Index: BMI Less than 30 Body mass index is 25.95 kg/m. BP Readings from Last 1 Encounters: 06/08/24 126/64 Medical/Surgical/Family History Reviewed: Yes Past Medical History: Diagnosis Date Chronic fatigue syndrome Depressive disorder, not elsewhere classified Dyslipidemia, goal to be determined 07/17/2009 Per Lipid Taxonomy. Fibromyalgia 2007 Hypothyroidism Lyme disease Migraine with aura visual aura Pectus excavatum Pulmonary embolism (HCC) 2006 associated with pectus excavatum surgery S/P IVC filter 2006 Shingles ~2013 Sleep apnea back around 1999, not presently Thyrotoxicosis without mention of goiter or other cause, without mention of thyrotoxic crisis or storm Past Surgical History: Procedure Laterality Date COLONOSCOPY 10/2002 repeat 10y COLONOSCOPY, DIAGNOSTIC (RECTUM) 08/23/2013 COLONOSCOPY FLEXIBLE PROXIMAL DIAGNOSTIC performed by Marco Carmona MD at ENDOSCOPY [facility] COLONOSCOPY, DIAGNOSTIC (RECTUM) 09/22/2022 benign adenomatous polyps, repeat 3 yrs / COLONOSCOPY FLEXIBLE PROXIMAL DIAGNOSTIC performed by Marco Carmona MD at ENDOSCOPY [facility] COLONOSCOPY, DIAGNOSTIC (RECTUM) N/A 05/26/2023 hemorrhoids/moderate diverticulosis/biopsies show hyperplastic polyps/recall 3 years/Colonoscopy COLONOSCOPY, DIAGNOSTIC (RECTUM) 05/26/2023 COLONOSCOPY FLEXIBLE PROXIMAL DIAGNOSTIC performed by Yvonne Castano DO at ENDOSCOPY [facility] DENTAL SURGERY PROCEDURE NEC wisdom teeth EGD, FLEXIBLE, DIAGNOSTIC 09/27/2022 mild inflammation on bx / ESOPHAGOGASTRODUODENOSCOPY (EGD), FLEXIBLE, TRANSORAL, DIAGNOSTIC performed by Yvonne Castano DO at ENDOSCOPY [facility] EGD, W/ENDOSCOPIC US 09/27/2022 normal / ESOPHAGOGASTRODUODENOSCOPY (EGD), FLEXIBLE, TRANSORAL, ENDOSCOPIC ULTRASOUND performed by Yvonne Castano DO at ENDOSCOPY [facility] HEMORRHOIDECTOMY, INTERNAL, 2 + COLUMNS N/A 12/06/2023 HEMORRHOIDECTOMY EXTERNAL AND INTERNAL COMPLEX performed by Ld Arauz MD at OR [facility] INFORMATION 2006 IVC filter INFORMATION Left 12/24/2015 left L4-5 epidural steroid injection INJECT FOR SPINE DISK X-RAY, LUMBAR Right 05/25/2017 rt paramedian disc hernation L5-s1 LAPAROSCOPY; CHOLECYSTECTOMY N/A 12/12/2020 LAPAROSCOPY; CHOLECYSTECTOMY N/A 12/12/2020 ROBOTIC LAPAROSCOPIC CHOLECYSTECTOMY performed by Archie Castro MD at OR [facility] LUMBAR / SACRAL EPIDURAL, SINGLE LEVEL Right L5 to S1 epidural steroid injection LUMBAR SPINE FUSION W/BONE GRAFT 05/22/2019 L4-L5 decompression, PSIF L4-L5, TLIF L4-L5, iliac crest autograf MASTECTOMY, SIMPLE, COMPLETE 01/2011 bilateral, no evidence of cancer RECONSTRUCT PECTUS EVACATUM 2006 removal of bar 08/17 REMOVAL OF THYROID LOBE, TOTAL Left 06/18/2021 TOTAL THYROID LOBECTOMY UNILATERAL performed by Felix Saavedra DO at OR [facility] REMOVAL OF TONSILS, UNDER AGE 12 1958 Tonsillectomy,<12 Y/O REMOVE CATARACT, INSERT LENS PROSTH Left 11/29/2016 REMOVE PART OF LUMBAR VERTEBRA 2021 SPINAL FUSION, LUMBAR, COMBINED 2018 Family History Problem Relation Name Age of Onset Cancer Mother Judy breast Stroke Mother Judy Heart Disorder Father pericarditis, CABG in 2003 Cancer Father CLL Cancer Grandmother (Paternal) stomach Has patient ever had cancer? No Social History Tobacco Use Smoking status: Never Passive exposure: Never Smokeless tobacco: Never Tobacco comments: no passive smoke at home Substance Use Topics Alcohol use: Yes Comment: rare Vaping/E-Cigarette Use Vaping/E-Cigarette Use Never User Vaping/E-Cigarette Substances Vaping/E-Cigarette Devices Tobacco/Alcohol screening completed today? Yes Hospital Care: Admissions (within the last year): Not Applicable ER within 30 days: No Does the patient have an Advance Directives/Living Will? Yes Last Physical Exam: Last physical exam: 05/2024 Does patient see primary provider regularly? Yes Does patient see other providers? Yes, Specialist Patient Care Team updated? Yes Review of patient's allergies indicates: Allergen Reactions Atorvastatin Muscle pain Crestor [Rosuvastatin] Brain fog Gabapentin Levaquin [Levofloxacin] Muscle pain and Other (Please comment) Headache and insomnia Prednisone Tachycardia palpitations Immunization History Administered Date(s) Administered COVID-19 mRNA, [...] 06/21/2013 Zoster Vaccine Recombinant (Shingrix) 10/23/2020, 01/28/2021 Current Outpatient Medications Medication Sig Dispense Refill MULTIVITAMINS PO TABS 1 tab daily [id number] SODIUM POWD 20mcg daily CYANOCOBALAMIN (VITAMIN B-12) 100 MCG Tablet Take 1 Tablet by mouth in the morning. Airborne Oral Lozenge Take 2 Tabs by mouth daily. Magnesium 400 MG Oral Capsule Take 3 Capsules by mouth in the morning. Vitamin D3 125 MCG (5000 UT) Oral Capsule Take 1 Capsule by mouth in the morning. Co-Enzyme Q-10 100 MG Oral Capsule Take 500 mg by mouth daily. Krill Oil 500 MG Oral Capsule Take [...] mouth in the morning. 90 Tablet 3 Testosterone Propionate 2 % Transdermal Ointment Place 3 g topically on the skin every 3 days. Testosterone 5%/Progest 0.5% gel. Compound formulation. 60 g 0 Repatha SureClick 140 MG/ML Subcutaneous Solution Auto-injector (evolocumab) Inject 140 mg (1 pen) under the skin every 14 days. Remove from refrigerator 30 minutes prior to injection. 6 mL 3 PROBIOTIC COMPLEX ACIDOPHILUS PO CAPS (P-8) one pill each day Finasteride 5 MG Oral Tablet (Proscar) Take 1 Tablet by mouth in the morning. 1/4 tab daily. (Patient not taking: Reported on 06/08/2024) No current facility-administered medications for this visit. Patient Active Problem List Diagnosis Esophageal reflux [...] chronic Thyroid nodule Coronary artery calcification of [place] artery Moderate episode of recurrent major depressive disorder (HCC) ASCVD (arteriosclerotic cardiovascular disease) Lumbar degenerative disc disease Primary osteoarthritis of right hip Vascular dementia without behavioral disturbance (HCC) Prediabetes Prolapsed internal hemorrhoids, grade 3 Pneumonia of both lower lobes due to infectious organism Lung nodules Brain fog Acute non intractable tension-type headache Immunodeficiency, common variable (HCC) Medication Compliance: Patient is able to obtain all of his medications? Yes Patient takes medications as prescribed? Yes Patient manages own medications: Yes Patient uses a pill box? No Dental Exam: Yes: Every 6 Months Eye Screening: Yes: Every 6 months Are you having trouble with hearing? No Do you use an assistive device to help your hearing? No Exercise Screening: daily excercise Nutrition Assessment: Eats a balanced diet and Eats three meals a day Pain Screening: Are you having any pain? No Sleep Screening Tool 'STOP': Do you snore? No Do you feel fatigued during the day? No Do you wake up feeling like you haven't slept? No Have you been told you stop breathing at night? No Do you gasp for air or choke while sleeping? No Have you been told you have Sleep Apnea? No Do you have high blood pressure or are on medication(s) to control high blood pressure? Yes SCORE: If you check YES to two or more questions, make a referral for Obstructive Sleep Apnea Patient and Caregiver Support System: Patient lives alone Means of Transportation: Drives. Not a concern. [facility] in [facility]. 7 up/down with a railing Community Resources: Not Applicable Functional Status and ADL Skills: Has patient ever had an amputation? No Functional Assessment: 100- Normal, no complaints, no evidence of disease Ambulation: Patient ambulates without assistive device. Independent Dressing: Gets clothes and dresses without any assistance: Independent Able to move freely in chair or bed including turning over: Independent Repositioning (bed or chair): Not applicable Transfers: Independent Toileting: Goes to bathroom, uses toilet, arranges clothes and returns without any assistance: Independent Toileting: continent of bladder and continent of bowel Feeding: Self Bathing: Self; tub/shower Requires none assistance with ADLs. Instrumental ADL's: Shopping: Independent Housekeeping: Independent Handling Finances: Independent DME Vendor Name: Not Applicable Fall Risk Assessment: Can the patient demonstrate that he can stand from a sitting position? Yes Has the patient had a fall within the last 6 months? No Does the patient have a problem with his gait or balance? No Does the patient take 4 or more prescription medicines? No Does the patient use sedatives or narcotics? No Fall Risk Factors Present: Older than age 70 Qqx-Ub-imi-Go Test: Time began at 1300. Patient stood from sitting position and walked approximately 10 feet, returned and sat down. Total time for azu-jb-kpj-go test was 10 seconds. Pnn-Iv-pxa-Go Test completed? Yes Gender Specific Preventative Plan: Health Maintenance Topic Date Due Hepatitis B Vaccine (3 of 3 - 19+ 3-dose series) 05/10/2009 COVID-19 Vaccine (2023- season) 2024 HbA1c 04/12/2025 Depression Monitoring 06/08/2025 Adult Wellness Visit 06/08/2025 Colorectal Cancer Screening 05/26/2026 DTap/Tdap Vaccines (3 - Td or Tdap) 12/25/2030 Influenza Vaccine (FLU shot) Completed Zoster Vaccines Completed Pneumococcal Vaccine: 65+ Years Completed MENINGOCOCCAL (MENACTRA/MENVEO) Aged Out HPV (Gardasil) Vaccine Aged Out Follow Up/ Referrals/Handouts: No further action needed Routine general medical examination at a health care facility (Primary) Risk and functional assessment AWV completed today Moderate episode of recurrent major depressive disorder (HCC) Adjustment disorder with depressed mood -continue following with pcp ASCVD (arteriosclerotic cardiovascular disease) - Med reconciliation completed and compliance discussed. - pt to continue present medications. DDD (degenerative disc disease), cervical -continue following with pain management Disease of pituitary gland (HCC) - Med reconciliation completed and compliance discussed. - pt to continue present medications. DYSLIPIDEMIA, GOAL TO BE DETERMINED Statin intolerance - Med reconciliation completed and compliance discussed. - pt to continue present medications. Lipid Panel Results: Results for orders placed or performed in visit on 09/09/16 LIPID PANEL Result Value Ref Range HOURS FASTING TRIGLYCERIDES-OUTSIDE LAB 198 (A) 0 - 150 mg/dl CHOLESTEROL-OUTSIDE LAB 200 0 - 200 mg/dl HDL-OUTSIDE LAB 46 <40 mg/dl CHOL/HDL RATIO-OUTSIDE LAB 4.3 LDL (CALCULATED)-OUTSIDE LAB 114 (H) <100 mg/dl Results for orders placed or performed in visit on 04/12/24 LIPID PANEL WITH DIRECT LDL IF TG IS HIGH Result Value Ref Range Triglycerides 135 <=174 mg/dL Cholesterol 115 <200 mg/dL HDL Cholesterol 53 >39 mg/dL Non-HDL Cholesterol 62 <=159 mg/dL LDL Cholesterol 35 <=129 mg/dL Esophageal reflux -continue following with pcp Displacement of lumbar intervertebral disc without myelopathy Lumbar degenerative disc disease -continue following with [facility] Follow Up: Return in 1 year (on 06/08/2025) for 12 month Subsequent Adult Wellness Visit. | For: 12 month Subsequent Adult Wellness Visit | Check-out note: 12 month Subsequent Adult Wellness Visit Would patient like to schedule next AWV visit? Yes Yumiko Wilkins, RN AD8 Dementia Screening Interview Person answering questions: patient Remember, "Yes, a change" indicates that there has been a change in the last several years caused by cognitive (thinking and memory) problems 1. Problems with judgement (eg: problems making decisions, bad financial decisions, problems with thinking). No (0) 2. Less interest in hobbies/activities. No (0) 3. Repeats the same things over and over (questions, stories, or statements). No (0) 4. Trouble learning how to use a tool, appliance, or gadget (eg: VCR, computer, microwave, remote control). No (0) 5. Forgets correct month or year. No (0) 6. Trouble handling complicated financial affairs (eg: balancing checkbook, income taxes, paying bills). No (0) 7. Trouble remembering appointments. No (0) 8. Daily problems with thinking and/or memory. No (0) TOTAL AD8: 0 - AD8 Dementia Screening Score The final score is a sum of the number items marked "Yes, A Change". 0 - 1: Normal cognition; 2 or greater: Cognitive impairments is likely to be present - further testing required documented in this encounter Miscellaneous Notes * Pt Handout (on AVS) - Yumiko Wilkins RN - 06/08/2024 1:25 PM EDT 22535 Preventing Falls: How to Prepare and What to Do Falling is not something you want to think about. But it can make a big difference to plan ahead. If you're prepared, you'll know how to get help. And you'll be less likely to panic if you fall. Thismeans you'll be able to do what's needed to get help right away. How to prepare Have someone check on you daily, either in person or by phone. Keep a list of emergency numbers near the phone. Always have a way to call for help. Keep a cell phone with you at all times. Or talk with your healthcare provider about how to set up a home monitoring service. This involves wearing a small device around your neck or wrist. If you fall, you can press the button on the device. This alerts emergency responders. Talk with your healthcare provider about an exercise program that's right for you. Regular exercise may reduce the risk of falling and the risk for injury related to a fall. Have good lighting in your home. Don't use throw rugs, because they can raise your risk of tripping and falling. Add grab bars in the bathroom to help reduce the risk of falling. Small changes canmake your home safer. Talk with your healthcare provider about making your home safer. What to do if you fall Above all, try to stay calm: If you start to fall, try to relax your body. This will reduce the impact of the fall. After you fall, press your monitor button, or use your phone to call for help. Don't guthrie to get up. First, make sure you're not hurt. Roll onto your side, then crawl to a chair. Pull yourself up onto the chair slowly. Get checked if you struck your head, lost consciousness, were confused afterward, or have any other concerns for injury. Tell your healthcare provider that you fell. They can check you for injuries as needed, try to determine what made you fall, and help prevent you from falling again. A note to family and friends If you're with a loved one when they start to fall, don't try to stop the fall. Ease the person to the floor carefully, so neither of you gets hurt. Don't leave the person alone. And don't try to move them, especially if they may have hurt their head or neck. Check for injuries. If help is needed right away, call 911. Last Reviewed Date: 2022 00:00:00 5507-7937 [employer]. All rights reserved. This information is not intended as a substitute for professional medical care. Always follow your healthcare professional's instructions. * Pt Handout (on AVS) - Yumiko Wilkins RN - 06/08/2024 1:25 PM EDT Images from the original note were not included. 13556 Exercises to Prevent Falls Certain types of exercises may help make you less likely to fall. Try the ones below or do other exercises that your healthcare provider suggests. Depending on your health, you may need to start slowly. Don't let that stop you. Even small amountsof exercise can help you. Talk with your healthcare provider before starting any exercise program. Improve balance Many types of exercise can help improve balance. Magaly chi and yoga are good examples. Here's anotherone to try. You can do it anytime and almost anywhere. Stand next to a counter or solid support. Push yourself up onto your tiptoes. Hold for 5 seconds. If you start to lose your balance, hold on to the counter. Rest and repeat 5 times. Work up to holding for 20 to 30 seconds, if you can. Increase flexibility Being more flexible makes it easier for you to move around safely. Try exercises like the seatedhamstring stretch. o Sit in a chair and put one foot on a stool. o Straighten your leg and reach with both hands down either side of your leg. Reach as far down your leg as you can. o Hold for about 20 seconds. o Go back to the starting position. Then repeat 5 times. Switch legs. o o Build strength o Resistance exercises help build strength. You can do them without equipment. Or you can use weights, elastic bands, or special machines. One such exercise is called the biceps curl. You can hold a 1-pound weight or even a can of soup. Do this exercise at least 3 times a week. Strive for every day. Sit up straight in a chair. Keep your elbow close to your body and your wrist straight. Bend your arm, moving your hand up to your shoulder. Then slowly lower your arm. Repeat 5 times. Switch to the other arm. Build your staying power Aerobic exercises make your heart and lungs stronger so you can keep moving longer. Walking and swimming are 2 of the best types of exercises you can do. Using a stationary bike is great, too. Find an aerobic exercise that you enjoy. Start slowly and build up. Even 5 minutes is helpful. Aim for a goal of 30 minutes, at least 3 times a week. You don't have to do 30 minutes in 1 session. Break it up and walk a little throughout the day. Starting out safely and slowly Start easy. Slowly work up to doing more. Talk with your healthcare provider about the best exercises for you. Call senior centers or health clubs about exercise programs. If needed, have a family member watch you walk every so often to check your stability. Exercise with a friend. Choose an activity you both enjoy. Be sure to gently warm up and cool down. Drink fluids, such as water, to stay hydrated. If your provider recommended that you limit fluids, ask them how much is OK to drink while exercising. Consider magaly chi or yoga to strengthen your balance. Try exercises that you can do anytime, anywhere. Here are 2 examples. Have someone with you whenyou first try these: o Practice walking by placing one foot right in front of the other. o Stand up and sit down 10 times. Repeat this throughout the day. Last Reviewed Date: 2022 00:00:00 4230-6602 The [email or web address].cn. All rights reserved. This information is not intended as a substitute for professional medical care. Always follow your healthcare professional's instructions. documented in this encounter Plan of Treatment Upcoming Encounters Date Type Department Care Team (Late st Contact Info) Description 06/09/2024 1:40 PM EDT Office Visit Family Practice [facility] 132 [facility] [place] [address] Estefania Dent MD [address] [place], [place] [address] [address] 07/09/2024 11:00 AM EST Imaging Radiology [facility] 132 [facility] [place] [address] 07/09/2024 12:20 PM EST Office Visit Pulmonary Medicine, [facility] 132 [facility] [place] [address] Nima Wilder MD [address] [place] [address] 08/09/2024 3:00 PM EST Office Visit Cardiology, [facility] 132 [facility] [place] [address] Archie Vasquez, PA-C 132 [facility] [place] [address] 11/13/2024 2:00 PM EDT Telemedicine Family Practice [facility] 132 [facility] [place] [address] Kely Le CRNP [facility] [address] 04/05/2025 2:00 PM EDT Office Visit Neurology [facility] 200 [facility] [place], [place] [address] Keny Taylor, DO [address] [facility] [place] [address] 04/10/2025 11:00 AM EDT Office Visit Dermatology [facility] 200 [facility] [place], [place] [address] Marie Moctezuma PA-C 200 [facility] [place], [place] [address] 05/16/2025 4:20 PM EDT Office Visit Family Practice [facility] 132 [facility] [place] [address] Leroy Beltran DO 132 [facility] [place] [address] 06/10/2025 11:00 AM EST Nurse Only Ancillary [facility] [address] [place] [address] [facility] Nurse Annual Wellness [facility] [address] [place] [address] Scheduled Procedures Name Priority Associated Diagnoses Date/Ti [...] this encounter Medical Devices Implanted Type Area Event Specialist Device Identifier Shelf Expiration Date Model / Serial / Lot Sureclip 16mm 235cm - [id number] Implanted:Qty: 1 on 09/22/2022 by Marco Carmona MD at ENDOSCOPY [facility] Colon MICRO TECH ENDOSCOPY 02/07/2024 [id number] / / Duraclip 16mm Xlg Repostn - [id number] Implanted:Qty: 1 on 05/26/2023 by Yvonne Castano DO at ENDOSCOPY [facility] CONMED NAIF 09/23/2024 [id number] / / documented as of this encounter Visit Diagnoses Diagnosis Routine general medical examination at a health care facility- Primary Risk and functional assessment Screening for unspecified condition Adjustment disorder with depressed mood ASCVD (arteriosclerotic cardiovascular disease) Unspecified cardiovascular disease DDD (degenerative disc disease), cervical Degeneration of cervical intervertebral disc Disease of pituitary gland (HCC) Unspecified disorder of the pituitary gland and its hypothalamic control Displacement of lumbar intervertebral disc without myelopathy DYSLIPIDEMIA, GOAL TO BE DETERMINED Other and unspecified hyperlipidemia Esophageal reflux Lumbar degenerative disc disease Degeneration of lumbar or lumbosacral intervertebral disc Moderate episode of recurrent major depressive disorder (HCC) Statin intolerance Other drug allergy documented in this encounter Advance Directives Documents on File Type Date Recorded 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 Care Teams Computer Technology Instructor Relationship Specialty Start Date End Date Leroy Beltran DO 132 [place] [address] PCP - General Family Medicine 12/03/20 documented as of this encounter
--- OUTSIDE RECORDS SUMMARY | 2024-06-15 09:51 | External Medical Summary | Summary of Care ---
Author Name Unknown Organization [facility] Address [address] [place] [address] Phone [phone] Care Team Providers Care Contact Lens Lathe Operator Name Role Phone Leroy Beltran Primary Care Provider Reason for Visit * Reason Onset Date Comments Adult Annual Wellness Visit, Subsequent Visit Encounter Details Date Type Department Care Team (Late st Contact Info) Description 06/08/2024 1:00 PM EDT Nurse Only Ancillary [facility] [address] [place] [address] [facility] Wellness [facility] [address] [place] [address] Adult Annual Wellness Visit, Subsequent Visit Allergies [...] MULTIVITAMINS PO TABS 1 tab daily Active SGRVIZN-A-MUCPHW INE SODIUM POWD 20mcg daily Active PROBIOTIC [...] morning. 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 A complete set of results can be found in Results Review. Sincerely, Leroy Beltran, DO 06/08/2024 [employer] Calendar (as of Visit date not [...] your insurance company to determine what's covered. [employer] is a great tool that helps you review your medical record online, including test results, doctor notes and your health summary. You can also schedule appointments with me and other members of your care team, request prescription refills and ask for advice related to your medical conditions at [email or web address]. Patient Instructions - Fall Prevention (This education [...] performed by Marco Carmona MD at ENDOSCOPY [facility] COLONOSCOPY, DIAGNOSTIC (RECTUM) 09/22/2022 benign adenomatous polyps, repeat 3 yrs / COLONOSCOPY FLEXIBLE PROXIMAL DIAGNOSTIC performed by Marco Carmona MD at ENDOSCOPY [facility] COLONOSCOPY, DIAGNOSTIC (RECTUM) N/A 05/26/2023 hemorrhoids/moderate diverticulosis/biopsies show hyperplastic polyps/recall 3 years/Colonoscopy COLONOSCOPY, DIAGNOSTIC (RECTUM) 05/26/2023 COLONOSCOPY FLEXIBLE PROXIMAL DIAGNOSTIC performed by Yvonne Castano DO at ENDOSCOPY [facility] DENTAL SURGERY PROCEDURE NEC wisdom teeth EGD, FLEXIBLE, DIAGNOSTIC 09/27/2022 mild inflammation on bx / ESOPHAGOGASTRODUODENOSCOPY (EGD), FLEXIBLE, TRANSORAL, DIAGNOSTIC performed by Yvonne Castano DO at ENDOSCOPY [facility] EGD, W/ENDOSCOPIC US 09/27/2022 normal / ESOPHAGOGASTRODUODENOSCOPY (EGD), FLEXIBLE, TRANSORAL, ENDOSCOPIC ULTRASOUND performed by Yvonne Castano DO at ENDOSCOPY [facility] HEMORRHOIDECTOMY, INTERNAL, 2 + COLUMNS N/A 12/06/2023 HEMORRHOIDECTOMY EXTERNAL AND INTERNAL COMPLEX performed by Ld Arauz MD at OR [facility] INFORMATION 2006 IVC filter INFORMATION Left 12/24/2015 left L4-5 epidural steroid injection INJECT FOR SPINE DISK X-RAY, LUMBAR Right 05/25/2017 rt paramedian disc hernation L5-s1 LAPAROSCOPY; CHOLECYSTECTOMY N/A 12/12/2020 LAPAROSCOPY; CHOLECYSTECTOMY N/A 12/12/2020 ROBOTIC LAPAROSCOPIC CHOLECYSTECTOMY performed by Archie Castro MD at OR [facility] LUMBAR / SACRAL EPIDURAL, SINGLE [...] performed by Felix Saavedra DO at OR [facility] REMOVAL OF TONSILS, UNDER AGE 12 [...] Refill MULTIVITAMINS PO TABS 1 tab daily [id number]-G-[id number] SODIUM POWD 20mcg daily CYANOCOBALAMIN (VITAMIN B-12) [...] chronic Thyroid nodule Coronary artery calcification of [place] artery Moderate episode of recurrent major depressive [...] Drives. Not a concern. Patient lives in [facility]. 7 up/down with a railing [...] Risk Factors Present: Older than age 70 Ghw-Mf-hbg-Go Test: Time began at 1300. Patient stood from sitting position and walked approximately 10 feet, returned and sat down. Total time for xyt-pj-bxf-go test was 10 seconds. Xlh-Jd-xjr-Go Test completed? Yes Gender Specific Preventative Plan: [...] Wilkins RN - 06/08/2024 1:25 PM EDT 23141 Preventing Falls: How to Prepare and What [...] call 911. Last Reviewed Date: 2022 00:00:00 7186-2079 [employer]. All rights reserved. This information is not intended as a substitute for professional medical care. Always follow your healthcare professional's instructions. * Pt Handout (on AVS) - Yumiko Wilkins RN - 06/08/2024 1:25 PM EDT Images from the original note were not included. 57192 Exercises to Prevent Falls Certain types of [...] the day. Last Reviewed Date: 2022 00:00:00 0015-6784 [employer]. All rights reserved. This information is not intended as a substitute for professional medical care. Always follow your healthcare professional's instructions. documented in this encounter Plan of Treatment Upcoming Encounters Date Type Department Care Team (Late st Contact Info) Description 06/09/2024 1:40 PM EDT Office Visit Family Practice [facility] 132 [facility] [place] [address] Estefania Dent MD [address] [place], [place] [address] [address] 07/09/2024 11:00 AM EST Imaging Radiology [facility]st [facility] 132 [facility] [place] [address] 07/09/2024 12:20 PM EST Office Visit Pulmonary Medicine, [facility] 132 [facility] [place] [address] Nima Wilder MD [address] [place] [address] 08/09/2024 3:00 PM EST Office Visit Cardiology, [facility] 132 [facility] [place] [address] Archie Vasquez, PA-C 132 [facility] [place] [address] 11/13/2024 2:00 PM EDT Telemedicine Family Practice [facility] 132 [facility] [place] [address] Kely Le CRNP 132 [facility] [address] 04/05/2025 2:00 PM EDT Office Visit Neurology [facility] 200 [facility] [place], [place] [address] Keny Taylor, DO [address] [facility] [place] [address] 04/10/2025 11:00 AM EDT Office Visit Dermatology [facility] 200 [facility] [place], [place] [address] Marie Moctezuma PA-C 200 [facility] [place], [place] [address] 05/16/2025 4:20 PM EDT Office Visit Family Practice [facility] 132 [facility] [place] [address] Leroy Beltran DO 132 [facility] [place] [address] 06/10/2025 11:00 AM EST Nurse Only Ancillary [facility] [address] [place] [address] [facility] Nurse Annual Wellness [facility] [address] [place] [address] Scheduled Procedures Name Priority Associated Diagnoses Date/Ti [...] this encounter Medical Devices Implanted Type Area Finishing Operator Device Identifier Shelf Expiration Date Model / Serial / Lot Sureclip 16mm 235cm - [id number] Implanted:Qty: 1 on 09/22/2022 by Marco Carmona MD at ENDOSCOPY [facility] Colon MICRO TECH ENDOSCOPY 02/07/2024 [id number] / / Duraclip 16mm Xlg Repostn - [id number] Implanted:Qty: 1 on 05/26/2023 by Yvonne Castano DO at ENDOSCOPY [facility] CONMED NAIF 09/23/2024 [id number] / / documented as of this encounter [...] Documents on File Type Date Recorded Patient Tube Cutter Expl 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 Care Teams Contact Lens Lathe Operator Relationship Specialty Start Date End Date Leroy Beltran DO 132 [place] [address] PCP - General Family Medicine 12/03/20 documented as of this encounter
--- OUTSIDE RECORDS SUMMARY | 2024-06-15 09:51 | External Medical Summary | Summary of Care ---
Author Name Unknown Organization [facility] Address [address] [place] [address] Phone [phone] Care Team Providers Care Forming Process Line Worker Name Role Phone Leroy Beltran DO Primary Care Provider Encounter Details Date Type Department Care Team (Late st Contact Info) Description 05/25/2024 Orders Only Family Practice [facility] [address] [place] [address] Leroy Beltran DO [address] [place] [address] Allergies Active Allergy Reactions Criticality Noted Date Comments Atorvastatin Muscle pain 02/11/2020 Rosuvastatin 10/20/2021 Brain fog Gabapentin 01/20/2022 Levofloxacin Muscle pain,Other (P lease comment) 11/11/2023 Headache and insomnia Prednisone Tachycardia 02/18/2018 palpitations documented as of this encounter (statuses as of 05/25/2024) Medications Medication Sig Dispensed Refills Start Date End Date Status MULTIVITAMINS PO TABS 1 tab daily Active [id number]-G-DAHQZAWCG SODIUM POWD 20mcg daily Active PROBIOTIC COMPLEX [...] Capsule by mouth in the morning. Active Repatha SureClick 140 MG/ML Subcutaneous Solution Auto-injector (evolocumab) Inject 140 mg (1 pen) under the skin every 14 days. Remove from refrigerator 30 minutes prior to injection. 6 mL 3 07/05/2023 Active valACYclovir HCl 1 GM Oral Tablet [...] gel. Compound formulation. 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 0 04/01/2021 Chest wall pain, chronic [...] as of this encounter (statuses as of 05/25/2024) Resolved Problems Problem Noted Date Diagnosed Date Resolved Date Prediabetes 02/15/2022 05/20/2022 Overview: Per Prediabetes protocol Prediabetes 09/21/2021 01/21/2022 Overview: Per Prediabetes protocol Dyspnea 04/01/2021 06/30/2021 Atelectasis, bilateral 04/01/202101/18 Neuropathy 04/01/2021 06/30/2021 Chronic fatigue syndrome 10/17/2009 Other persistent mental diso rders due to conditions classified elsewhere 11/08/2008 06/30/20 21 Pulmonary embolus 11/22/2006 11/04/2016 [facility] current use of ant icoagulant therapy 11/22/2006 [...] as of this encounter (statuses as of 05/25/2024) Immunizations Name Administration Dates Next Due COVID-19 [...] the money to buy more. Never true 06/12/20 24 Within the past 12 months, t [...] 06/08/2024 1:00 PM EDT Nurse Only Ancillary [address] [place] [address] [place], Nurse Annual Wellness [facility] 132 [facility] [place] [address] 07/09/2024 11:00 AM EST Imaging Radiology [facility] 1st [facility] 132 [facility] [place] [address] 07/09/2024 12:20 PM EST Office Visit Pulmonary Medicine, [facility] 132 [facility] [place] [address] Nima Wilder MD [address] [place] [address] 08/09/2024 3:00 PM EST Office Visit Cardiology, [facility] 132 [facility] [place] [address] Archie Vasquez, PA-C 132 [facility] [place] [address] 11/13/2024 2:00 PM EDT Telemedicine Family Practice [facility] 132 [facility] [place] [address] Kely Le CRNP 132 [facility] [place] [address] 04/05/2025 2:00 PM EDT Office Visit Neurology [facility] 200 [facility] [place] [address] Keny Taylor, DO [address] [facility] [place] [address] 04/10/2025 11:00 AM EDT Office Visit Dermatology [facility] 200 [facility] [place] [address] Marie Moctezuma PADougC 200 [facility] [place] [address] Scheduled Procedures Name Priority Associated Diagnoses Date/Ti [...] this encounter Medical Devices Implanted Type Area President And Chief Executive Officer Device Identifier Shelf Expiration Date Model / Serial / Lot Sureclip 16mm 235cm - [id number] Implanted:Qty: 1 on 09/22/2022 by Marco Carmona MD at ENDOSCOPY [facility] Colon MICRO TECH ENDOSCOPY 02/07/2024 [id number] / / Duraclip 16mm Xlg [facility] [id number] Implanted:Qty: 1 on 05/26/2023 by Yvonne Castano DO at ENDOSCOPY [facility] i[employer]rumz NAIF 09/23/2024 [id number] / / documented as of this encounter Procedures Procedure Name Priority Date/Time Associated Diagnosis Comments CHEMISTRY-OUTSIDE Routine 05/23/2024 documented in this encounter Results * CHEMISTRY-OUTSIDE (05/23/2024) Not all results display below - see scan for full detail OUTSIDE LAB (SEE SCANNED REPORT) Comment:SCAN INCLUDES - CBCD , BMP, PT INR, PTT CREATININE 0.83 0.6 - 1.4 MG/DL OUTSIDE LAB (SEE SCANNED REPORT) EGFR 93.57 OUTSIDE LA B (SEE SCANNED REPORT) POTASSIUM 4.5 3.5 - 5.1 MMOL/L OUTSIDE LAB (SEE SCANNED REPORT) GLUCOSE 93 70 - 99 MG/DL OUTSIDE LAB (SEE SCANNED REPORT) HOURS FASTING OUTSID E LAB (SEE SCANNED REPORT) TRIGLYCERIDES-OUT SIDE LAB OUTSIDE LAB (SEE SCANNED REPORT) CHOLESTEROL-OUTSI DE LAB OUTSIDE LAB (SEE SCANNED REPORT) HDL-OUTSIDE LAB OUTS BOB LAB (SEE SCANNED REPORT) CHOL/HDL RATIO-OUTSIDE LAB OUTSIDE LA B (SEE SCANNED REPORT) LDL (CALCULATED)-OUTS BOB LAB OUTSIDE LAB (SEE SCANNED REPORT) LDL (DIRECT MEASURE)-OUTSIDE LAB OUTSIDE LAB (SEE SCANNED REPORT) HEMOGLOBIN, F2T-TMOPVMY LAB OUTSIDE LAB (SEE SCANNED REPORT) PHOSPHORUS-OUTSID E LAB OUTSIDE LAB (SEE SCANNED REPORT) PTH-OUTSIDE LAB OUTS BOB LAB (SEE SCANNED REPORT) MICROALBUMIN RATIO-OUTSIDE LAB OUTSIDE LA B (SEE SCANNED REPORT) PROTEIN, UA-OUTSIDE LAB OUTSIDE LAB (SEE SCANNED REPORT) HGB 15.4 14.0 - 18.0 G/DL OUTSIDE LAB (SEE SCANNED REPORT) 05/23/2024 Dashawn Powell DO LABORATORY OUTSIDE LAB (SEE SCANNED REPORT) documented in this encounter Advance Directives Documents on File Type Date Recorded Patient Dog Beautician Expl anation Advance Directives and Living Will 05/14/2019 ADVANCE DIRECTIVE DELMAR PETERSON Power of Swing Saw Operator 05/14/2019 POWER OF A TTORNEY * Full [...] and were consensually agreed upon. Care Teams Forming Process Line Worker Relationship Specialty Start Date End Date Leroy Beltran DO [address] [place] [address] PCP - General Family Medicine 12/03/20 documented as of this encounter
[2024-06-15] MEDS: TRANEXAMIC ACID 1,000 MG **IV Intra-op IV SCH (10:02)
[2024-06-15] MEDS ORDERED: SUGAMMADEX SODIUM 200 MG/2 ML VIAL IV ONE (10:10)
--- NOTE | 2024-06-15 10:14 | Operative Report ---
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 A tenodesis was opted. This was a separate and distinct portion of the procedure. For these reasons, a CPT code modifier 59 will be added to this case. Implants used: I used a [employer] Comprehensive total shoulder arthroplasty system with a size 15 press fit micro humeral stem, a size 50 x 21 eccentric humeral head, and a size 3 glenoid with a trabecular metal peg. The glenoid was cemented in place with Palacos G cement. Sebas arrived at [facility] for the above procedure. He was seen in the preoperative holding area and the operative extremity was identified and signed. He was given a preoperative antibiotic, TXA, and an interscalene nerve block. He was taken back to the operating room, laid on table in supine position, and put under general anesthesia. He was then put into the beachchair position. The shoulder was then prepped and draped in sterile fashion. A timeout was done and the patient and the operative extremity was properly identified. A deltopectoral approach was used. Dissection was taken down through the fascia and the deltoid was retracted laterally and the conjoined tendon was retracted medially. The anterior shoulder was exposed. The biceps groove was opened up and the biceps tendon was examined extensively. The biceps tendon demonstrated enlargement and inflammatory changes consistent with longstanding inflammation in the context of osteoarthritis. The long head of the biceps tendon was then tenodesed to the upper border of the pectoralis major. This was a separate and distinct portion of the procedure. The subscapularis was then released off the lesser tuberosity with a centimeter of cuff tissue remaining. The inferior capsule was released and the humeral head was dislocated. The rotator cuff was inspected and intact. A canal finding reamer was sent down the center of the humeral canal. Sequential reaming up to a size 15 reamer was done. Offset reamer a proximal humeral resection guide was placed. The proximal humerus was resected at 135 of inclination and 30 of retroversion. Inferior osteophytes were then removed and the glenoid was exposed. Time was spent doing an appropriate labral release. The glenoid measured to be a size 3. A 3.2 mm Steinmann pin was placed in the central hole of the glenoid vault pin guide. The glenoid was then reamed with a propeller reamer. The central post cutter was then used to prepare for the central boss. The cannulated peripheral peg drill guide was then placed and 3 peg holes were drilled. The final size 3 glenoid was then cemented in place with Palacos G cement. Surrounding soft tissues were then injected with 100 cc of an orthopedic pain control cocktail. Once cement had dried the proximal humerus was once again exposed. Sequential broaching of the humerus up to a size 15 broach was done. Off that broach a size 50 x 21 eccentric humeral head was trialed. The shoulder was then reduced, brought through a full range of motion, and felt to be stable. The shoulder was then dislocated and the broach was removed. The final size 15 micro humeral stem implant was then impacted into place. A size 50 x 21 eccentric humeral head was then impacted onto the humeral stem. The shoulder was then reduced and once again brought through a full range of motion and felt to be stable. The subscapularis was then tenodesed back to the lesser tuberosity with transosseous FiberWire sutures and side to side sutures with the arm in 45 of external rotation. 2 sutures were placed in the lateral rotator interval. A dilute betadyne lavage was then done for 3 minutes. The joint was then irrigated with normal saline solution. Hemostasis was obtained. The interval was closed with 2-0 Vicryl suture. The skin was closed with 2-0 Vicryl and abhijit. A Silverlon dressing was placed and the arm was rested in a regular arm sling. He was then extubated and transferred to a hospital bed. He was taken to the postanesthesia care unit in stable condition. He tolerated the procedure well. Gael Padgett PA-C, was present for the entire procedure. He was critical for patient positioning, prepping, draping, retraction exposure, wound closure and application of sterile dressing. I attest to the content of the Intraoperative Record and any orders documented therein. Any exceptions are noted below.
[2024-06-15] MEDS ORDERED: NALOXONE HCL 0.4 MG/1 ML VIAL/CARP IV PRN (11:34)
[2024-06-15] MEDS ORDERED: FINASTERIDE 5 MG TAB PO SCH (11:34)
[2024-06-15] MEDS ORDERED: HYDROmorphone INJ 0.5 MG/0.5 ML SYR IV PRN (11:34)
[2024-06-15] MEDS ORDERED: oxyCODONE HCL IR 5 MG TAB (IMMEDIATE RELEASE) PO PRN (11:34)
[2024-06-15] MEDS ORDERED: ONDANSETRON INJ 2 MG/ML 2 ML VIAL IV PRN (11:34)
[2024-06-15] MEDS ORDERED: bisacodyL 10 MG SUPP PR PRN (11:34)
[2024-06-15] MEDS ORDERED: MAGNESIUM HYDROXIDE SUSP 30 ML UDC PO PRN (11:34)
[2024-06-15] MEDS ORDERED: METOCLOPRAMIDE HCL INJ 5 MG/ML 2 ML VIAL IV PRN (11:34)
[2024-06-15] MEDS: KETOROLAC TROMETHAMINE 15 MG/ML VIAL IV SCH (13:02)
--- NOTE | 2024-06-15 13:13 | XRay Report ---
XR shoulder LT min 2V routine HISTORY: 73 years-old Male Post shoulder surgery left shoulder arthroplasty COMPARISON: 05/23/2024 TECHNIQUE: 3 views of the left shoulder FINDINGS: Left shoulder arthroplasty demonstrates satisfactory alignment. Overlying skin abhijit with expected postoperative soft tissue swelling and deep tissue air. [id number] osteoarthritis of the AC jaylan nt. Left basilar atelectasis. IMPRESSION: Left shoulder arthroplasty with expected postoperative changes. ACT 112: Negative or not required by law. The above report was generated using voice recognition software. It may contain grammatical, syntax o r spelling errors. Electronically signed by: Pasquale Gong M.D. 06/15/2024 1:11 PM
--- NOTE | 2024-06-15 14:41 | Anesthesiology Progress Note ---
Date of Service June 15, 2024 Anesthesia Post Procedure Vital Signs Vital Signs: Temp Pulse Pulse Resp BP Pulse Ox O2 Del Method 06/15/24 14:16 36.5 C 79 18 109/66 95 Room Air 06/15/24 13:26 84 16 123/73 95 Room Air 06/15/24 12:29 36.5 C 76 16 111/64 96 Room Air 06/15/24 11:53 36.5 C 74 18 118/62 94 Room Air 06/15/24 11:37 36.5 C 68 16 111/64 94 Room Air 06/15/24 11:30 36.5 C 95 H 16 111/64 94 Room Air 06/15/24 11:10 36.8 C 74 21 123/63 93 Room Air 06/15/24 11:00 78 22 128/69 98 Oxymask 06/15/24 10:50 71 12 133/65 97 Oxymask 06/15/24 10:40 78 19 135/71 99 Oxymask 06/15/24 10:32 36.0 C L 88 14 152/76 H 96 Oxymask 06/15/24 07:16 36.5 C 62 20 137/80 96 Room Air O2 Flow Rate 06/15/24 14:16 06/15/24 13:26 06/15/24 12:29 06/15/24 11:53 06/15/24 11:37 06/15/24 11:30 06/15/24 11:10 0 06/15/24 11:00 4 06/15/24 10:50 4 06/15/24 10:40 8 06/15/24 10:32 8 06/15/24 07:16 Transfer of Care Handoff Completed per policy Notes Mental Status: alert / awake / arousable Patient Amnestic to Procedure: Yes Nausea / Vomiting: adequately controlled Pain: adequately controlled Airway Patency, RR, SpO2: stable & adequate BP & HR: stable & adequate Hydration State: stable & adequate Anesthetic Complications: no major complications apparent and Pt Satisfied with anesthetic care
[2024-06-15] MEDS: SENNA 8.6 MG TAB PO SCH (21:09)
[2024-06-15] MEDS: DOCUSATE SODIUM 100 MG CAP PO SCH (21:10)
[2024-06-16 07:45] VITALS: BP 144/76; PULSE 60; RESP 17; TEMP 97.5; O2SAT 97
--- NOTE | 2024-06-16 08:01 | Orthopedic Progress Note ---
Date of Service June 16, 2024 Assessment & Plan (1) Status post replacement of left shoulder joint: Overall is doing fairly well. He is not having much pain in the left shoulder. He will be seen by physical therapy today for ambulation and range of motion exercises. He can be discharged to home later today. He will follow-up with orthopedics in 2 weeks. Rainer Mullen was seen and examined at bedside this morning. Overall he is doing very well. He is not having much pain in the left shoulder. He has been up and ambulating to the bathroom. Has no complaints.. Review of Systems All systems reviewed & are unremarkable except as noted in HPI & below. Physical Exam On physical exam of the left shoulder, the dressing is clean and dry. He is wearing his sling as instructed. He has active motion of his hand and his wrist.. Results & Data Results & Data Laboratory Results . Diagnostic Findings Postoperative x-rays of the left shoulder show the prosthesis to be in anatomic alignment without any evidence of fracture, dislocation, or loosening.. PG Care Time/CCT Total # of Minutes Spent Total Time Spent with Patient: Total time spent is greater than 50% in coordination of care (as documented) at patient's floor/unit and/or counseling patient: Coding Level of Care Code 51300 Post Operative Follow-Up Diagnoses Status post replacement of left shoulder joint Z96.612
--- NOTE | 2024-06-16 08:02 | Discharge Summary ---
Date of Service June 16, 2024 Principal Diagnosis Same as "Discharge Diagnosis" noted below under Discharge Instructions. Discharge Exam On physical exam of the left shoulder, the dressing is clean and dry. He is wearing his sling as instructed. He has active motion of his hand and his wrist.. Discharge Data Procedures Performed Operation Date: 06/15/24 09:00 Actual Procedures p Left Anatomic Total Shoulder Arthroplasty, Cemented(Left) - Dashawn Powell DO Ordered Studies 06/15/24 05:00 US - OR guided needle placemen Routine Hospital Course (1) Status post replacement of left shoulder joint: On June 15, 2024 Sebas arrived at [facility] and underwent a left shoulder replacement without complication. He had a general anesthetic and a left interscalene nerve block. Postoperatively he was placed in a sling and transferred to the general orthopedic floors. His hospital course was uneventful. On postop day #1, his vital signs were stable and his pain is well- controlled. He was able to participate well with physical therapy doing ambulation and range of motion exercises. He was then discharged to home. He will follow-up with orthopedics in 2 weeks. PG Care Time/CCT Total # of Minutes Spent Total Time Spent with Patient: Total time spent is greater than 50% in coordination of care (as documented) at patient's floor/unit and/or counseling patient: Discharge Plan Discharge Items Patient Disposition: Home - Self-Care Reason For Visit: LEFT TOTAL SHOULDER REPLACEMENT Discharge Diagnosis: Left shoulder replacement Activity: Per Instructions section Non-emergency contact: Surgeon Call non-emergency contact if: your wound has increased redness and your wound has increased drainage Follow-up/Referrals: Leroy Beltran DO [Primary Care Provider] - Diet: Regular Addtl Attending Provider Instructions: Activity and Therapy Recommendations: * If you are using [facility] then therapy will be provided at your home until they feel you have accomplished all of your goals. * If you are using [facility] then Physical Therapy will be provided until they feel you are ready to start Outpatient Physical Therapy. * If you are not using home therapy then Outpatient Physical Therapy should start about 3-5 days from your day of surgery. Therapy will last about 8-12 weeks * Wear your sling for 3 weeks, unless otherwise instructed. You may remove your sling to shower and to dress, but otherwise, you should be in your sling at a ll times, including while sleeping * The shoulder replacement is very stable and you can use your hand while in the sling * You were shown a series of exercises in the hospital. Do these exercises daily including the exercises you were shown in physical therapy. Medications: * Narcotic You will likely be sent home from the hospital with a prescription for the narcotic pain medication that worked best throughout your stay. * Cefadroxil -take the antibiotic twice a day for 10 days to help prevent infection. * Other medications may be prescribed for specific circumstances. If you have any questions, please call the office at . * Resume previous home medications unless otherwise instructed Dressing Care: Leave the Silverlon dressing in place for 7 days. After 7 days you may remove the dressing. If the incision is not draining then you may leave the abhijit open to air. If there is a little bit of drainage or if the abhijit are getting stuck on your clothing then cover the incision with a dry dressing. The abhijit will be removed at your 2 week follow-up appointment. Showering: You may shower with the Silverlon dressing in place. Do not let the shower spray hit the dressing directly. Pat the Silverlon dressing dry. If the dressing becomes wet underneath, then simply remove the dressing. Keep the incision dry until you are 7 days out from the day of surgery. After 7 days you may remove the Silverlon dressing and shower with the abhijit e xposed. Let soapy water run over the abhijit and pat them dry. Do not scrub or soak the incision. Diet: You may resume your previous diet. Things To Watch For: * Drainage from the incision site that occurs more than one week after your surgery. * Increased redness at the incision site. * Fever above 102 degrees Fahrenheit. * Unusual chest pain or shortness of breath. * Call [facility] at with any of the above problems Follow-Up Visit: Follow-up with Dr. Powell's PA (Dashawn Singh) 2-3 weeks after your day of surgery. He will remove your abhijit and answer any questions. If you have any additional questions or concerns, Dr Powell is usually in the office at the same time and will be available An appointment was probably scheduled when you signed-up for surgery in the office. If you have any questions call More detailed instructions as well as Frequently Asked Questions were provided in a folder by our office when you signed-up for surgery. Please review these instructions when you get home. If you have any further questions or concerns, please feel free to call the office at [phone] Pending Studies at Discharge: No Stand-Alone Forms: [facility], Smoking Cessation Medications and DC Order Prescriptions: New oxycodone 5 mg Tablet 5 mg PO Q4H PRN (Reason: pain) Qty: 30 0RF cefadroxil 500 mg capsule 500 mg PO BID 10 Days Qty: 20 0RF Continued coenzyme Q10 [Co Q-10] 10 mg Capsule 10 mg PO QAM cyanocobalamin (vitamin B-12) [Vitamin B-12] 1,000 mcg Tablet 1,000 mcg PO QAM valacyclovir [Valtrex] 500 mg Tablet 1,000 mg PO BID PRN (Reason: FLARE/OUTBREAK) [id number]-[id number]-[id number]-[id number]-ast [krill oil] [id number] mg Capsule 1 cap PO QAM magnesium oxide 400 mg magnesium Tablet 800 mg PO QAM cholecalciferol (vitamin D3) [Vitamin D3] 5,000 unit Tablet 10,000 unit PO QAM Test 5%/Progest 0.5% Gel 2 pump topical HS multivitamin Tablet 1 tab PO QAM Airborne (ascorbic acid) 1,000-350 mg Powder Effervescent In Packet 1 ea PO QAM vitamin K2 100 mcg Capsule 100 mcg PO QAM melatonin 1 mg Tablet 1 - 3 mg PO HS PRN (Reason: Sleep) Nt Factor Energy 1 tab PO QAM hydrocortisone 5 mg Tablet 5 mg PO DAILY PRN (Reason: Adrenal insufficiency) losartan 25 mg tablet 25 mg PO QAM finasteride 5 mg tablet 5 mg PO DIRECTED Rx Instructions: 1/4 tablet daily Repatha SureClick 140 mg/mL pen injector 140 mg SUBCUT DIRECTED Rx Instructions: [id number] - Fri Discharge Orders: Discharge Order (Routine); Ordered 06/16/24 Ordered By: Dashawn Powell Admission Data Admit Date/Time: 06/15/24 10:40 Attending Provider: Dashawn Powell Admit Provider: Dashawn Powell Primary Care Provider: Leroy Beltran Other Interventions: Discharge Summary Assessment (RN) Last Done: 06/16/24 08:01
--- OUTSIDE RECORDS SUMMARY | 2024-06-16 08:08 | External Medical Summary | Summary of Care ---
Author Name Unknown Organization [facility] Address [address] [place] [address] Phone [phone] Care Team Providers Care Truant Officer Name Role Phone Leroy Beltran DO Primary Care Provider Reason for Visit * Reason Onset Date Comments Pre-Op Testing 06/13/2024 Encounter Details Date Type Department Care Team (Late st Contact Info) Description 06/13/2024 Telephone Family Practice [facility] [address] [facility] [place] [address] Leroy Beltran DO [address] [facility] [place] [address] Pre-Op Testing Allergies Active Allergy Reactions Criticality Noted Date Comments Atorvastatin Muscle pain 02/11/2020 Rosuvastatin 10/20/2021 Brain fog Gabapentin 01/20/2022 Levofloxacin Muscle pain,Other (P lease comment) 11/11/2023 Headache and insomnia Prednisone Tachycardia 02/18/2018 palpitations documented as of this encounter (statuses as of 06/15/2024) Medications MULTIVITAMINS PO TABS 1 tab daily Active [id number] INE SODIUM POWD 20mcg daily Ac tive PROBIOTIC COMPLEX ACIDOPHILUS PO CAPS (P-8) one [...] minutes prior to injection. 6 mL 3 06/04/2024 10:14 AM EDT 4 Active Nystatin [id number] UNIT/GM External CreamIndications :Congenital pectus excavatum,Intert andrei Apply topically to affected area 2 times a day. For 2-4 wks 30 g 4 Active Fluconazole 200 MG Oral Tablet (Diflucan)Indica tions:Casandra infection of genital region Take 1 Tablet by mouth in the morning for 14 days. 14 Tablet 4 024 Active documented as of this encounter (statuses as of 06/15/2024) Active Problems Problem Noted Date Diagnosed Date [...] Thyroid nodule 04/01/2021 Coronary artery calcification of kasaan artery 0 04/01/2021 Chest wall pain, chronic 02/26/2021 Statin intolerance 02/11/2020 Fibromyalgia 01/31/2020 Hx of actinic keratosis 08/25/2016 Major depressive disorder 07/19/2013 Overview (05/31/2017): ICD-10 update of inactive term Solitary kidney, congenital 05/02/2012 Overview (03/22/2019): Has healthy Left kidney, Congenital absence of right kidney. Adjustment disorder with depressed mood 01/15/20 10 Glucocorticoid deficiency 10/17/2009 Endocrine disorder 10/17/2009 Disease of pituitary gland 10/17/2009 Immunologic deficiency syndrome 10/17/2009 Transient insomnia 10/17/2009 Vitamin D deficiency 10/17/2009 DYSLIPIDEMIA, GOAL TO BE DETERMINED 07/17/2009 Overview (07/17/2009): Per Lipid Taxonomy. Displacement of lumbar inter vertebral disc without myelopathy 10/28/2006 Fatigue 12/24/2005 Sleep apnea 04/22/2004 Pectus excavatum 12/30/2003 DDD (degenerative disc disease), cervical 2002 Esophageal reflux 02/09/2002 documented as of this encounter (statuses as of 06/15/2024) Resolved Problems Problem Noted Date Diagnosed Date Resolved Date Prediabetes 02/15/2022 05/20/2022 Overview: Per Prediabetes protocol Prediabetes 09/21/2021 01/21/2022 Overview: Per Prediabetes protocol Dyspnea 04/01/2021 06/30/2021 Atelectasis, bilateral 04/01/202101/18 Neuropathy 04/01/2021 06/30/2021 Chronic fatigue syndrome 10/17/2009 Other persistent mental diso rders due to conditions classified elsewhere 11/08/2008 06/30/20 21 Pulmonary embolus 11/22/2006 11/04/2016 jail current use of ant icoagulant therapy 11/22/2006 05/07/2008 Overview (05/09/2017): ICD-10 update of inactive term Anticoagulation management encounter 11/22/2006 05/07/2008 Myalgia and myositis 10/28/2006 020 PURE HYPERCHOLESTEROLEM 05/20/200607/08 Overview (07/17/2009): Per Lipid Taxonomy. ADVANCE DIRECTIVE INFORMATION 12/24/2005 06/11/2024 Overview (12/24/2005): Pt advised to bring copy of living will. Other allergic rhinitis 09/30/200408/09 Overview (05/31/2017): Resolved per Duplicate Protocol #2. ICD-10 update of inactive term Malaise and fatigue 09/09/2004 04/27/20 11 FAMILY HX-GI MALIGNANCY 04/10/200204/10 TOX DIF GOITER NO CRISIS 12/06/2000 Sprain of neck 12/06/2000 04/27/2011 NECK DISORDER-SYMPT NOS 05/21/199804/10 Back disorder 05/07/2008 Headache 06/30/2021 Overview (10/29/2015): ICD-10 update of inactive term Other allergic rhinitis 12/2008 Overview (05/31/2017): ICD-10 update of inactive term documented as of this encounter (statuses as of 06/15/2024) Immunizations Name Administration Dates Next Due COVID-19 [...] Assigned at Male 12/07/2021 10:36 AM EDT Legal Sex Male 5:56 AM EST Gender Identity Male 12/07/2021 10:36 AM EDT Sexual Orientation Straight 12/07/2021 10 :36 AM EDT 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 Would advise no dosing [...] will then call Gena BURTON back at [place] Pre anesthesia. * Telephone Encounter - Wendy Arteaga LPN - 06/14/2024 8:52 AM EST Gena calling from [facility] Pre-anesthesia Patient is scheduled for a total shoulder on Friday 06/15 Has some concerns about adrenal insufficiency and his PRN hydrocortisone. Are there any recommendations for him before and after surgery? Spoke with ISSAC Mack in room with a patient at this time, she will have PCP address and call Gena back with recommendations. Gena [phone] Gena stated that they do have access to [employer], if provider writes recommendation in this encounter she has access to be able to read. * Telephone Encounter - Perri Cruz LPN - 06/13/2024 1:25 PM EST Amanda calling from [place] anesthesia Patient is scheduled for a total [...] Description 07/09/2024 11:00 AM EST Imaging Radiology [facility] [place] [address] [place] [address] 07/09/2024 12:20 PM EST Office Visit Pulmonary Medicine, [facility] [address] [place] [address] Nima Wilder MD [address] [place] [address] 08/09/2024 3:00 PM EST Office Visit Cardiology, [facility] [address] [place] [address] Archie Vasquez PA-C [address] [place] [address] 11/13/2024 2:00 PM EDT Telemedicine Family Practice [facility] [address] [place] [address] Kely Le CRNP [address] [facility] [place] [address] 04/05/2025 2:00 PM EDT Office Visit Neurology [facility] [address] [place], [place] [address] Keny Taylor, DO [address] [place] [address] 04/10/2025 11:00 AM EDT Office Visit Dermatology [facility] [address] [place] [address] Marie Moctezuma PA-C [address] [facility] [place] [address] 05/16/2025 4:20 PM EDT Office Visit Family Practice [facility] [address] [place] [address] Leroy Beltran, DO [address] [place] [address] 06/10/2025 11:00 AM EST Nurse Only [facility] [address] [place] [address] Jono Nurse Annual Wellness [facility] [address] [place] [address] Scheduled Procedures Name Priority Associated Diagnoses Date/Ti [...] this encounter Medical Devices Implanted Type Area Compliance Nurse Device Identifier Shelf Expiration Date Model / Serial / Lot Sureclip 16mm 235cm - [id number] Implanted:Qty: 1 on 09/22/2022 by Marco Carmona MD at END[facility]COPY [facility] Colon MICRO TECH ENDOSCOPY 02/07/2024 [id number] / / Duraclip 16mm Xlg Repostn - [id number] Implanted:Qty: 1 on 05/26/2023 by Yvonne Castano DO at [facility] CONMED NAIF 09/23/2024 [id number] / / documented as of this encounter Advance Directives Documents on File Type Date Recorded Patient [employer] Expl anation Advance Directives and Living Will 05/14/2019 ADVANCE DIRECTIVE DELMAR BANKS WILL Power of Cnc Manager 05/14/2019 POWER OF A TTORNEY * [...] and were consensually agreed upon. Care Teams Truant Officer Relationship Specialty Start Date End Date Leroy Beltran DO [address] [place] [address] PCP - General Family Medicine 12/03/20 documented as of this encounter
[2024-06-16] MEDS: dexAMETHasone 4 MG TAB PO SCH (08:16)
[2024-06-16] MEDS: LOSARTAN POTASSIUM 25 MG TAB PO SCH (08:16)
[2024-06-16] MEDS: MULTIVITAMIN TAB PO SCH (08:16)
[2024-06-16] MEDS: CHOLECALCIFEROL 125 MCG (5,000 UNITS) TAB PO SCH (08:16)
[2024-06-16] MEDS: CYANOCOBALAMIN (B-12) 500 MCG TABLET PO SCH (08:16)
[2024-06-16] MEDS ORDERED: [UNRECOGNIZED DRUG - OTHER] PO SCH (09:00)
[2024-06-16] MEDS ORDERED: NON-FORMULARY MEDICATION (Vitamin K2 100 mcg Capsule) PO SCH (09:00)
[2024-06-16] MEDS ORDERED: NON-FORMULARY MEDICATION (Coenzyme Q10 [Co Q-10] 10 mg Capsule) PO SCH (09:00)
== END 2024-06-16 10:26 | disposition home or self-care (01) ==
LOC: ASU 06:50 → 3E 06:50